=== PATIENT | male | born 1960 | race Caucasian/White ===

== ENCOUNTER 2025-09-07 19:02 | Inpatient (IN) | payer BC, SELFPAY ==
[2025-09-07] VITALS (13 sets, daily range): BP systolic 114–143; BP diastolic 82–115; PULSE 102–173; RESP 10–28; TEMP 36.4–37.1; O2SAT 92–96
--- NOTE | 2025-09-07 19:11 | EKG_ITS ---
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
--- NOTE | 2025-09-07 19:28 | EDNOTE_ITS ---
ED SOB =RME/HPI General Chief Complaint: Shortness of Breath/Dyspnea Stated Complaint: SOB, WEAKNESS, JOINT PAIN Time Seen by Provider: 09/07/25 19:26 Arrival date/time: 09/07/25 19:02 RME / HPI RME / HPI Narrative: Dr. Reid?s Main ED Evaluation: 64yo male presenting with progressively worsening shortness of breath over the last 1-2 weeks that is attributed to various allergenic stimulants. No fever, chills, or cough. No chest pain or palpitations. Patient notes having increased orthopnea and abdominal girth. No BLE edema. Cardiac Risk Factors: No DM, HTN, HLD, or tobacco use. Patient is morbidly obese and has a family history of heart disease. PSH includes chronic back pain, reports previous cervical fusion. Related Data Allergies Allergy/AdvReac Type Severity Reaction Status Date / Time eucalyptus Allergy Verified 09/07/25 19:08 SODIUM PENTHOL Allergy Uncoded 09/07/25 19:08 TOBACCO Allergy Uncoded 09/07/25 19:08 Review of Systems Review of Systems Systems Reviewed: All systems reviewed, normal except as documented ED Exam Narrative Physical exam: GENERAL APPEARANCE: alert and oriented x 4, well-developed, well-nourished, mildly tachypneic at rest VITALS: All vitals were reviewed and the pulse ox is 95% on room air, which is normal according to my interpretation. Notably tachycardic and hypertensive. HEENT: Normocephalic, atraumatic; pupils equal, round, reactive to light; EOMI; mucous membranes pink, moist; oropharynx clear NECK: Supple, no JVD LUNGS: CTABL; no wheezes, no rales, no rhonchi HEART: Tachycardic, irregularly irregular rhythm; normal S1, S2; no murmurs ABDOMEN: mildly distended; obese, soft, no tenderness EXTREMITIES: atraumatic; trace edema NEUROLOGIC: awake; alert and oriented x4; cranial nerves II-XII grossly intact; no focal sensory or motor deficits PSYCHIATRIC: appropriate mood and affect SKIN: warm, dry, normal color; no rashes Course Course Course Narrative: CXR is ordered for determining the etiology of shortness of breath. Quality Measures none Orders Category Date Time Status Blood glucose [Bedside Blood Glucose] NOW Care 09/07/25 19:11 Active Lubrication Supervisor STAT Care 09/07/25 19:33 Active Continuous Pulse Oximetry ONCE Care 09/07/25 19:33 Active EKG (ED ONLY) *Do not use* NOW Care 09/07/25 19:11 Completed Insert IV STAT Care 09/07/25 19:33 Active EKG (ED Only) Stat Exams 09/07/25 19:11 Draft XR chest 1V portable Stat Exams 09/07/25 19:33 Completed B-Type Natriuretic Peptide Stat Lab 09/07/25 19:38 Completed CBC Stat Lab 09/07/25 19:38 Completed Comprehensive Metabolic Panel Stat Lab 09/07/25 19:38 Completed Lipase Stat Lab 09/07/25 19:38 Completed Magnesium Stat Lab 09/07/25 19:38 Completed Partial Thromboplastin Time Stat Lab 09/07/25 19:38 Completed Prothrombin Time with INR Stat Lab 09/07/25 19:38 Completed Troponin I Stat Lab 09/07/25 19:38 Completed Apixaban [Eliquis] Med 09/07/25 20:51 Discontinued 5 mg PO X1 ONE Aspirin Chew Med 09/07/25 19:33 Discontinued 324 mg PO X1 ONE DILTIAZEM in NS 100 MG (DO NOT [DILTIAZEM in NS 100 MG] Med 09/07/25 20:42 Active 100 mg in 100 ml IV 5 mg/hr Diltiazem Inj [Cardizem Inj] Med 09/07/25 19:33 Discontinued 10 mg IV X1 ONE Diltiazem Inj [Cardizem Inj] Med 09/07/25 20:09 Discontinued 10 mg IV X1 ONE Diltiazem Inj [Cardizem Inj] Med 09/07/25 20:49 Discontinued 10 mg IV X1 ONE Furosemide Inj [Lasix Inj] Med 09/07/25 21:29 Once 20 mg IVP X1 ONE Morphine* Inj Med 09/07/25 19:34 Discontinued 4 mg IVP X1 ONE Ondansetron Inj [Zofran Inj] Med 09/07/25 19:33 Active 4 mg IVP Q1HR PRN Sodium Chloride 0.9% 1000 ml [Ns] 1,000 ml Med 09/07/25 19:33 Discontinued IV 999 mls/hr Oxygen Delivery NOW RT 09/07/25 19:33 Active Vital Signs Vital signs: Vital Signs Temperature 97.5 F 09/07/25 19:20 Pulse Rate 167 H 09/07/25 19:20 Respiratory Rate 26 H 09/07/25 19:20 Pulse Oximetry (%) 95 09/07/25 19:20 Oxygen Delivery Method Room Air 09/07/25 19:20 Shortness of Breath / Dyspnea MDM Narrative MDM Narrative:: Scribe Attestation: 09/07/25 - Tanya Garcia am scribing for and in the p resence of Dr. Reid. 64yo male presenting with progressively worsening shortness of breath over the last 1-2 weeks that is attributed to various allergenic stimulants. No fever, chills, or cough. Please see PE findings. Lab markers demonstrate WBC count 9.6, HnH 14/44, Plt count 264. Coagulation profile shows marginally elevated PTT 32.5. Chemistries show normal renal function, mildly elevated blood sugar of 138, elevated troponin 0.107, BNP 613. EKG shows aFib RVR without ischemic findings. Patient was immediately triaged to monitored bed, IV established, and received incremental doses of Cardizem IV for aFib RVR with gradual reduction of heart rate. Also placed on Cardizem infusion to ensure rate control and possible conversion. Troponin is elevated likely related to rate-related ischemia as opposed to acute DC. CXR shows cardiomegaly and mild pulmonary venous congestion, although no pleural effusions. Informal bedside US demonstrates markedly reduced EF with poor colapse of IVC with inspiration. Lasix given. Will contact hospitalist for consideration of admission, as patient will require further work-up. Will initiate anticoagulant therapy with Eliquis. Dx: new onset aFib RVR Patient data External records reviewed:: [facility] previous records (Per chart review, patient has no previous ED visits or admissions to this facility.) Clinical information provided by:: patient Social determinants that could affect healthcare access:: none Patient has the following chronic illnesses:: none How is presenting disease/condition affected by chronic disease/condition?: no chronic disease Evaluation data The following diagnostics were reviewed and interpreted by me:: lab results, radiology exam(s) and EKG tracing(s) Lab and/or radiology exams considered but not ordered:: none Interpretation Summary: CXR shows cardiomegaly, mild pulmonary venous congestion, no pleural effusions, according to my interpretation. EKG done at 1917, aFib RVR, rate of 171, no acute pathological ST segment changes, no ectopy, left axis deviation, according to my interpretation. Medications / Prescriptions Medications or Prescriptions considered but not ordered:: none Medication administrations:: Medication Administration History Furosemide (Furosemide Inj 10 Mg/Ml 4ml Vial) 20 mg IVP X1 ONE Stop: 09/07/25 21:30 Diltiazem/Sodium Chloride (Diltiazem In Ns 100 Mg) 100 mg in 100 mls @ 5 mls/hr IV .Q20H KATINA; Protocol Stop: 10/07/25 20:41 Last Titration: 09/07/25 21:10 Dose: 7.5 mg/hr, 7.5 mls/hr Documented By: Admin: 09/07/25 20:55 Dose: 5 mg/hr, 5 mls/hr Documented By: URMILA Ondansetron HCl (Ondansetron Inj 2 Mg/Ml Inj 2 Ml) 4 mg IVP Q1HR PRN PRN Reason: PERSISTENT NAUSEA OR VOMITING Last Admin: 09/07/25 19:54 Dose: 4 mg Documented By: URMILA Discontinued Medications Apixaban (Apixaban 2.5 Mg Tablet) 5 mg PO X1 ONE Stop: 09/07/25 20:52 Last Admin: 09/07/25 21:21 Dose: 5 mg Documented By: URMILA Aspirin (Aspirin 81 Mg Chew) 324 mg PO X1 ONE Stop: 09/07/25 19:34 Last Admin: 09/07/25 19:52 Dose: 324 mg Documented By: URMILA Diltiazem HCl (Diltiazem Inj 5 Mg/Ml Vial 5 Ml) 10 mg IV X1 ONE Stop: 09/07/25 19:34 Last Admin: 09/07/25 19:49 Dose: 10 mg Documented By: AC Diltiazem HCl (Diltiazem Inj 5 Mg/Ml Vial 5 Ml) 10 mg IV X1 ONE Stop: 09/07/25 20:10 Last Admin: 09/07/25 20:20 Dose: 10 mg Documented By: DT Diltiazem HCl (Diltiazem Inj 5 Mg/Ml Vial 5 Ml) 10 mg IV X1 ONE Stop: 09/07/25 20:50 Last Admin: 09/07/25 21:19 Dose: 10 mg Documented By: URMILA Sodium Chloride (Ns) 1,000 mls @ 999 mls/hr IV .Q1H1M ONE Stop: 09/07/25 20:33 Last Infusion: 09/07/25 20:52 Dose: Infused Documented By: Admin: 09/07/25 19:51 Dose: 999 mls/hr Documented By: URMILA Morphine Sulfate (Morphine Sulf Inj 4 Mg/Ml Vial) 4 mg IVP X1 ONE Stop: 09/07/25 19:35 Last Admin: 09/07/25 19:50 Dose: 4 mg Documented By: URMILA see above Consultations Consultation(s) initiated? (list below): Yes Consultation #1 (Physician, Specialty, Details): Discussed case with the resident physician, attending Dr. Haque from Hospitalist service regarding admission. Discussed patients ED course, exam findings, labs, and radiology results. The Hospitalist agrees to accept the patient for admission. Time: 21:30 Diagnosis Shortness of Breath Differential Diagnosis: congestive heart failure, community acquired pneumonia and other (arrhythmia, ACS, viral illness) Most likely diagnosis given after review of the tests above:: see clinical impression below Admission Indicated Admission indicated?: indicated Admission Request Was there a request for admission?: Yes Admission Attestation Admission request attestation: Discussed case with [] from Hospitalist service regarding admission. Discussed patients ED course, exam findings, labs, and radiology results. The Hospitalist [agrees,declines] to accept the patient for admission. Disposition Plan Disposition Plan: Admit Critical Care Time Critical Care Time Critical Care Time: Yes Total Critical Care Time (min.): 40 Attestation: The high probability of sudden, clinically significant deterioration in the patient?s condition required the highest level of my preparedness to intervene urgently. The services I provided to this patient were to treat and/or prevent clinically significant deterioration. Services included the following: chart data review, reviewing nursing notes and/or old charts, documentation time, sap security consultant collaboration regarding findings and treatment options, medication orders and management, direct patient care, vital sign assessments and ordering, interpreting and reviewing diagnostic studies and lab tests. Aggregate critical care time includes only time during which I was engaged in work directly related to the patient?s care, as described above, whether at bedside or elsewhere in the Emergency Department. It did not include time spent performing other reported procedures or the services of residents, students, nurses or physician assistants. Discharge Plan Plan Patient Disposition: Admit Acute Care w/in Hospital Prescriptions/Referrals Referrals: No Primary/Family,Physician [Primary Care Provider] - In 1 week Problem List Clinical Impression: New onset a-fib Patient/Caregiver Discharge Instructions Print Language: Latvian Stand Alone Forms: Tatyana Award Info., Patient Portal Info Letter
--- NOTE | 2025-09-07 19:33 | XR_ITS ---
EXAMINATION: AP chest single view TECHNIQUE: AP portable upright chest single view Date and time: September 07, 2025, 1999 hours INDICATIONS: Chest pain today. FINDINGS: Mild heart failure Mild to moderate enlargement cardiac contour Prominent vascular congestion with early perihilar basilar edema Moderate osteopenia IMPRESSION: Mild heart failure
[2025-09-07] MEDS: DILTIAZEM INJ 5 MG/ML VIAL 5 ML 10 MG IV ×3 (19:49→21:19)
[2025-09-07] MEDS: MORPHINE SULF INJ 4 MG/ML VIAL IVP (19:50)
[2025-09-07] MEDS: SODIUM CHLORIDE 0.9% 1000 ML 1,000 ML 999 ML IV (19:51)
[2025-09-07] MEDS: ASPIRIN 81 MG CHEW 324 MG PO (19:52)
[2025-09-07] MEDS: ONDANSETRON INJ 2 MG/ML INJ 2 ML 4 MG IVP (19:54)
[2025-09-07 20:06] LABS: Basophils # (Auto) 0.1 Thou/mm3 (0.0-0.2); Basophils % (Auto) 1 % (0-2.5); Eosinophils # (Auto) 0.0 Thou/mm3 (0.0-0.5); Eosinophils % (Auto) 0 % (0-10); Hematocrit 44.8 % (41.0-53.0); Hemoglobin 14.7 g/dL (13.5-16.0); Immature Granulocytes Auto 0.05 Thou/mm3 (0.00-0.00); Lymphocytes # (Auto) 1.2 Thou/mm3 (1.0-4.8); Lymphocytes % (Auto) 13 % (10-50); Mean Corpuscular HGB Conc 32.8 g/dl (31.0-37.0); Mean Corpuscular Hemoglobin 28.5 pg (25.0-35.0); Mean Corpuscular Volume 87 fL (80-100); Monocytes # (Auto) 0.9 Thou/mm3 (0.0-0.8); Monocytes % (Auto) 9 % (0-12); Neutrophils # (Auto) 7.3 Thou/mm3 (1.8-7.7); Neutrophils % (Auto) 77 % (37-80); Nucleated Red Blood Cell # 0.00 Thou/mm3 (0.00-0.00); Nucleated Red Blood Cell % 0 /100 WBC (0); Platelet Count 264 Thou/mm3 (140-440); RDW Standard Deviation 48.0 fL (35.1-43.9); Red Blood Count 5.16 Miln/mm3 (4.50-5.90); White Blood Count 9.6 Thou/mm3 (3.8-10.6)
[2025-09-07 20:16] LABS: INR 1.3 (0.9-1.3); Partial Thromboplastin Time 27.6 Seconds (22.0-36.0); Prothrombin Time 13.5 Seconds (9.0-12.2)
[2025-09-07 20:20] LABS: Alanine Aminotransferase 109 U/L (10-49); Albumin, Serum 4.5 gm/dL (3.4-4.8); Albumin/Globulin Ratio 1.7 (1.2-2.2); Alkaline Phosphatase 85 U/L (46-116); Anion Gap 12 (7-16); Aspartate Amino Transferase 83 U/L (0-34); BUN/Creatinine Ratio 12 Ratio (12-20); Bilirubin,Total 1.5 mg/dL (0.3-1.2); Blood Urea Nitrogen 16 mg/dL (9-23); Calcium 9.9 mg/dL (8.3-10.6); Calcium (Corrected) 9.9 mg/dL (8.5-10.1); Carbon Dioxide 23.0 mMol/L (20.0-31.0); Chloride 107 mMol/L (98-107); Creatinine (Component) 1.3 mg/dL (0.6-1.3); Globulin 2.6 gm/dL (2.3-3.5); Glucose 138 mg/dL (74-106); Lipase 37 U/L (12-53); Magnesium 2.0 mg/dL (1.6-2.6); Osmolality,Calculated 286 (275-295); Potassium 4.4 mMol/L (3.4-5.1); Sodium 142 mMol/L (136-145); Total Protein 7.1 gm/dL (5.7-8.2); eGFR > 60 See Note
[2025-09-07 20:27] LABS: Troponin I 0.107 ng/mL (0.0-0.045)
[2025-09-07 20:28] LABS: B-Type Natriuretic Peptide 613 pg/mL (0-100)
[2025-09-07] MEDS: APIXABAN 2.5 MG TABLET 5 MG PO (21:21)
[2025-09-07] MEDS: FUROSEMIDE INJ 10 MG/ML 4ML VIAL 20 MG IVP (21:40)
--- NOTE | 2025-09-07 21:57 | XR_ITS ---
Examination: Abdomen sonogram, Limited Date and time of exam: September 07, 2025, 10:00 p.m. INDICATIONS: Elevated liver function test on laboratory examination today Technique: Real-time lopez scale transabdominal sonographic images of the upper abdomen obtained. Findings: Negative for gallstones Gallbladder wall is thickened 0.8 cm Common bile duct 0.3 cm Pancreatic head 2.7 cm Liver 14 cm no liver lesions, fatty infiltration, partial visualization right pleural fluid Normal hepatopetal portal venous flow Patent IVC IMPRESSION: Thickened gallbladder wall up to 8 mm, consider HIDA scan or MRCP follow-up to exclude cholecystitis Cirrhosis versus primary hepatocellular disease
--- NOTE | 2025-09-07 22:56 | ECHO_ITS ---
Patient Info Name: Rocael Doe Age: 64 years : 1960 Gender: Male Ht: 183 cm Wt: 130 kg BSA: 2.62 m2 BP: 116 / 87 mmHg HR: 98 bpm Heart Rhythm: Atrial Fibrillation Exam Date: 09/08/2025 8:26 AM Admit Date: 09/07/2025 Site: [facility] Room Number: [id number] Patient Status: I Exam Type: CA echo doppler complete General Assistant: Susannah Rayo Ordering Physician: Og Moore Study Info Indications New onset A fib in setting of CHF - Primary Location: [id number] Left Ventricular Outflow Tract Name Value Normal LVOT 2D LVOT Diameter 2.0 cm LVOT Doppler LVOT Peak Velocity 101 cm/s LVOT Mean Gradient 2 mmHg LVOT VTI 17 cm LVOT VTI/AV VTI Ratio 0.6 LVOT Stroke Volume 53 ml Pulmonic Valve Name Value Normal PV Doppler PV Peak Velocity 100 cm/s Mitral Valve Name Value Normal MV Doppler MV Decel [place] 866 cm/s2 MV PHT 39 ms MV Area (PHT) 5.7 cm2 4.0-5.0 MV Diastolic Function MV E Peak Velocity 116 cm/s Tricuspid Valve Name Value Normal TV Regurgitation Doppler TR Peak Velocity 236 cm/s Estimated PAP/RSVP RA Pressure 15 mmHg <=5 PA Systolic Pressure 37 mmHg <36 RV Systolic Pressure 37 mmHg <36 Aortic Valve Name Value Normal AV 2D/MM AV Cusp Sep (MM) 0.9 cm AV Doppler AV Peak Velocity 181 cm/s AV Mean Gradient 8 mmHg AV VTI 30 cm AV Area (Cont Eq VTI) 1.8 cm2 >=3.0 AV Area (Cont Eq Gregg) 1.8 cm2 AV DI (Gregg) 0.56 AV Regurgitation 2D LVOT Area 3.1 cm2 Ventricles Name Value Normal LV Dimensions 2D/MM IVS Diastolic Thickness (2D) 1.0 cm 0.6-1.0 LVID Diastole (2D) 5.7 cm 4.2-5.8 LVIW Diastolic Thickness (2D) 1.0 cm 0.6-1.0 LVID Systole (2D) 4.8 cm 2.5-4.0 LVOT Diameter 2.0 cm LV Mass (2D Cubed) 226.35 g 88.00-224.00 LV Mass Index (2D Cubed) 86 g/m2 49-115 Relative Wall Thickness (2D) 0.35 <=0.42 IVS/LVIW Diastolic Thickness (2D) 1.00 0.00-1.50 LV Fractional Shortening/Ejection Fraction 2D/MM LV Fractional Shortening (2D) 16 % 25-43 LV EF (2D Teichholz) 33 % LV Diastolic Volume (4C MOD) 193 ml LV EF (4C MOD) 21 % LV Diastolic Volume (2C MOD) 205 ml LV EF (2C MOD) 41 % LV Diastolic Volume (BP MOD) 205 ml 62-150 LV Diastolic Volume Index (BP MOD) 78 ml/m2 34-74 LV Systolic Volume (BP MOD) 138 ml 21-61 LV Systolic Volume Index (BP MOD) 53 ml/m2 11-31 LV EF (BP MOD) 33 % 52-72 LV Diastolic Length (4C) 9.0 cm LV Systolic Length (4C) 8.4 cm LV Stroke Volume (4C MOD) 41 ml Atria Name Value Normal LA Dimensions LA Volume (4C A-L) 129 ml Left Ventricle Left ventricular chamber dimension is mildly enlarged. Left ventricular systolic function is severely reduced with visually estimated ejection fraction of 20-25%. There is normal geometry noted in the left ventricle. Left ventricular segmental wall motion is normal. There is grade II diastolic dysfunction in the left ventricle. Right Ventricle Right ventricular chamber dimension is normal. Right ventricular systolic function is normal. Left Atrium Left atrial chamber dimension is severely enlarged. Right Atrium Right atrial chamber dimension is moderately enlarged. Aortic Valve The aortic valve is trileaflet. There is moderate aortic valve sclerosis. There is no aortic valve stenosis with a peak velocity of 181 cm/s, mean gradient of 8 mmHg, and aortic valve area of 1.8 cm2. There is mild aortic valve regurgitation. Pulmonic Valve The pulmonic valve is normal. There is no pulmonic valve stenosis. There is mild pulmonic regurgitation. Mitral Valve The mitral valve has thickened leaflets. There is no mitral valve stenosis. There is mild to moderate mitral valve regurgitation. Tricuspid Valve The tricuspid valve leaflets are normal. There is no tricuspid valve stenosis. There is mild to moderate tricuspid valve regurgitation. Pulmonary hypertension, estimated pulmonary arterial systolic pressure is 37 mmHg and systemic blood pressure of 116 mmHg in systole. Pericardium/Pleural The pericardium appears normal. There is trivial pericardial effusion with no tamponade. No pleural effusion visualized. Inferior Vena Cava Dilated inferior vena cava with <50% collapse upon inspiration consistent with normal right atrial pressure, 15 mmHg. Aorta The aortic measurements are indexed to age and body surface area. The aortic root at the sinus of Valsalva is not well visualized. The prox ascending aorta is not well visualized. Summary 1. Left ventricle size is mildly enlarged and systolic function is severely reduced. Estimated ejection fraction is 20-25%. There is grade II diastolic dysfunction. Cannot rule out Small LV thrombus. Will need echo contrast study which is not available here. 2. Right ventricle chamber size is normal and systolic function is normal. Estimated RVSP is 37 mmHg. mildly elevated RVSP. 3. There is moderate aortic valve sclerosis with no stenosis and mild regurgitation. 4. There is mild to moderate mitral and tricuspid valve regurgitation. 5. The left atrium is severely enlarged. The right atrium is moderately enlarged. 6. Dilated IVC with estimated RA pressure 15 mmHg. 7. There is trivial pericardial effusion with no tamponade. Report Signatures Finalized by Marcus Nathan on 09/08/2025 11:22 AM
--- NOTE | 2025-09-07 23:17 | ESHP_ITS ---
<Statement entered by Yuliya Taylor MD - 09/07/25 23:51> Note reviewed, I agree with most of its contents and agree with the patient's care as documented by Dr. Moore. Rocael Doe is 64 male with no significant past medical history presenting to ED with chief complaint of worsening shortness of breath since past 1-2 weeks. He endorses orthopnea and dyspnea walking short distances. He reports needing to sleep with multiple pillows to relieve his symptoms. He denies any chest pain, palpitations, abdominal pain, headache, recent illness. Patient has not seen PCP recently and does not take any regular medications. He denies any tobacco use or excessive alcohol consumption. In ED, patient was found to be in atrial fibrillation with RVR rate around 170. He was started on diltiazem drip titrated up to max of 15 mg/hour. He is currently on 5L NC saturating at 96%, BP 140/96, troponins 0.107, bR 1.5, elevated LFTs. He remains hemodynamically stable and no actue distress. +2 pitting edema in LE, mild crackles bilaterally. Patient to be admitted for management of AHRF 2/2 CHF exacerbation and new onset Afib RVR. Started on Eliquis 5BID with rate control with dilt. Started IV Lasix 40BID, strict INOs, fluid restriction, cardiology consulted, trend trops, TSH pending, and echo pending. The patient's management plan was discussed with my attending physician Dr. Haque. Yuliya Taylor, PGY-2 Documentation for date of: 09/07/25 HPI History of Present Illness History of present illness: 64yo obese male w/ pmhx of chronic back pain s/p cervical fusion (2006) presents to ED with progressively worsening shortness of breath over the last 1-2 weeks. Admitted for AHRF with new onset afib w/ RVR. ED Course Summary Vitals: BP 137/115 HR 167 RR 26 T 97.5F O2sat 95% NC 2L Labs: CBC wnl Coag 13.5 (H) INR 1.3 (N) APTT 27.6 (N), glucose 138 T Bili 1.5(H) AST 83 ALT 109 Troponin 0.107 BNP 613 Imaging: EKF afib with RVR, CXR mild heart failure, Liver US Thickened gallbladder wall up to 8 mm, Cirrhosis versus primary hepatocellular disease Treatment: lasix 20mg IVP, eliquis 5mg PO, Diltiazem 10mg IV x3, Dilt drip, zofran 4mg, aspirin 324mg, NS 1L, morphine sulfate 4mg IVP Consults and why: [facility] (Dr. Nathan) for new onset afib w/ RVR Upon initial examination patient confirms the narrative written by the ED. He initially thought his SOB was attributed to various allergenic stimulants. Patient notes having increased orthopnea and abdominal girth. Before the last two weeks he has not had any trouble sleeping, he wakes up feeling well rested without headaches; however he does snore occasionally. Of note patient has lost 100lbs this last year going from 365lbs --> 265lbs but now in the last two weeks has increased to 280lbs. As of the last two weeks he has been hyperventilating, his SOB does not improve with rest and has been impacting his sleep, making him orthopnic. Denies BLE edema. He denies any fever, chills, or cough. He was asked multiple times about chest pain or palpitations of which he denied repeatedly. He did not have any pain with probe during his abdominal US. He was also notably not orthopnic while laying horizontal during abd US. He has not been to the doctor since 2011 so he is unsure if he has chronic medical illnesses such as diabetes, hypertension, CINDY. He reports feeling well until recently (2 weeks). He has chronic back pain and a history of cervical fusion; however the back pain prevents him from walking for over a mile or doing strenuous exercise. He has not had any visual changes, positional headaches, or ringing in his ears that could indicate severe forms of hypertension. 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 Exam Vital Signs Temp Pulse Resp BP Pulse Ox O2 Del Method O2 Flow Rate 98.6 F 102 H 19 125/82 96 Nasal Cannula 5 09/07/25 23:15 09/07/25 23:15 09/07/25 23:15 09/07/25 23:15 09/07/25 23:15 09/07/25 23:15 09/07/25 23:15 FiO2 4 09/07/25 20:59 Narrative Exam GENERAL APPEARANCE: AOx4. NAD, activity normal for age, well developed/ well nourished, no cyanosis, pallor, or diaphoresis. Laying on back, no orhopnea at the moment. HEENT: Normocephalic atraumatic, no facial trauma, neck is supple. Lids/conjunctiva normal. Mucous membranes moist, nares normal, lips/teeth normal uvula midline without oral pharyngeal erythema, exudate or swelling TMs normal bilaterally. No lymphangitis/lymphedema. CARDIAC: Irregular rhythm RESPIRATORY: respiratory effort normal, speaks in full sentences, on 4L NC. Crackles aucultated in R lung quadrants and bronchial breath sounds in L lung. No wheezes heard. ABDOMINAL: NBS. Soft, ND/NT. No evidence of fluid wave. No pulsatile masses on exam, rebound tenderness, Skelton sign or pain over Mcburney's point. MUSCLES/EXTREMITIES: No abnormal range of motion. +2 Pedal edema DERM: Warm, pink and dry. No rashes, dermatoses, petechiae or lesions. No bronzing of the shins NEUROLOGICAL: Speech is clear and appropriate. Normal level of consciousness. 5/5 strength in all extremities. PSYCH: Normal mood and affect. Judgement/competence is appropriate Results: Labs 09/08/25 02:20 09/08/25 02:20 Labs: Short CBC 09/07/25 Range/Units 19:38 WBC 9.6 (3.8-10.6) Thou/mm3 Hgb 14.7 (13.5-16.0) g/dL Hct 44.8 (41.0-53.0) % Plt Count 264 (140-440) Thou/mm3 BMP 09/07/25 19:38 Sodium 142 Potassium 4.4 Chloride 107 Carbon Dioxide 23.0 BUN 16 Creatinine 1.3 Glucose 138 H Calcium 9.9 Cardiac Enzymes 09/07/25 Range/Units 19:38 Troponin I 0.107 H* (0.0-0.045) ng/mL Liver Function 09/07/25 Range/Units 19:38 Total Bilirubin 1.5 H (0.3-1.2) mg/dL AST 83 H (0-34) U/L ALT 109 H (10-49) U/L Alkaline Phosphatase 85 (46-116) U/L Albumin 4.5 (3.4-4.8) gm/dL Quality Measures Quality Measures VTE prophylaxis Medications Home Medications and Allergies Allergies Allergy/AdvReac Type Severity Reaction Status Date / Time eucalyptus Allergy Verified 09/07/25 19:08 SODIUM PENTHOL Allergy Uncoded 09/07/25 19:08 TOBACCO Allergy Uncoded 09/07/25 19:08 Visit Medications Acetaminophen (Acetaminophen 325 Mg Tablet) 650 mg PO Q6H PRN PRN Reason: Fever >100.4 or pain 1-3 Stop: 10/07/25 22:44 Hydrocodone Bitart/Acetaminophen (Hydrocodone/Apap 5/325 Tablet) 1 tab PO Q4HR PRN PRN Reason: PAIN SCALE 4-6 (Moderate Stop: 09/12/25 22:44 Apixaban (Apixaban 2.5 Mg Tablet) 5 mg PO BID KATINA Stop: 10/08/25 08:59 Famotidine (Famotidine Inj 10 Mg/Ml Vial 2 Ml) 20 mg IVP Q12HR KATINA Stop: 10/08/25 08:59 Furosemide (Furosemide Inj 10 Mg/Ml 4ml Vial) 40 mg IVP BID KATINA Stop: 10/08/25 08:59 Diltiazem/Sodium Chloride (Diltiazem In Ns 100 Mg) 100 mg in 100 mls @ 5 mls/hr IV .Q20H KATINA; Protocol Stop: 10/07/25 20:41 Last Titration: 09/07/25 21:55 Dose: 15 mg/hr, 15 mls/hr Ondansetron HCl (Ondansetron Inj 2 Mg/Ml Inj 2 Ml) 4 mg IVP Q1HR PRN PRN Reason: PERSISTENT NAUSEA OR VOMITING Last Admin: 09/07/25 19:54 Dose: 4 mg Discontinued Medications Apixaban (Apixaban 2.5 Mg Tablet) 5 mg PO X1 ONE Stop: 09/07/25 20:52 Last Admin: 09/07/25 21:21 Dose: 5 mg Aspirin (Aspirin 81 Mg Chew) 324 mg PO X1 ONE Stop: 09/07/25 19:34 Last Admin: 09/07/25 19:52 Dose: 324 mg Diltiazem HCl (Diltiazem Inj 5 Mg/Ml Vial 5 Ml) 10 mg IV X1 ONE Stop: 09/07/25 19:34 Last Admin: 09/07/25 19:49 Dose: 10 mg Diltiazem HCl (Diltiazem Inj 5 Mg/Ml Vial 5 Ml) 10 mg IV X1 ONE Stop: 09/07/25 20:10 Last Admin: 09/07/25 20:20 Dose: 10 mg Diltiazem HCl (Diltiazem Inj 5 Mg/Ml Vial 5 Ml) 10 mg IV X1 ONE Stop: 09/07/25 20:50 Last Admin: 09/07/25 21:19 Dose: 10 mg Furosemide (Furosemide Inj 10 Mg/Ml 4ml Vial) 20 mg IVP X1 ONE Stop: 09/07/25 21:30 Last Admin: 09/07/25 21:40 Dose: 20 mg Sodium Chloride (Ns) 1,000 mls @ 999 mls/hr IV .Q1H1M ONE Stop: 09/07/25 20:33 Last Infusion: 09/07/25 20:52 Dose: Infused Morphine Sulfate (Morphine Sulf Inj 4 Mg/Ml Vial) 4 mg IVP X1 ONE Stop: 09/07/25 19:35 Last Admin: 09/07/25 19:50 Dose: 4 mg Assessment & Plan Plan 64yo obese male w/ pmhx of chronic back pain s/p cervical fusion (2006) presents to ED with progressively worsening shortness of breath over the last 1-2 weeks. Admitted for AHRF with new onset afib w/ RVR. Initial weight 130.266kg #AHRF #New onset A fib with RVR #New onset CHF #NSTEMI type II DDx: HTN, CINDY, OHS Most likely HTN that patient has not been managing, very poor doctor follow up after 2011, OHS to be considered, however patient has lost over 100lbs, and CINDY is less likely because he does not have headaches upon waking and generally feels well rested, neck circumference also appears to be under 40cm; however STOP BANG score of 3. Patient presented respiratory distress and SOB the last 2 weeks. In ED oxygen saturation went down to 92% corrected with NC. He has crackles in the lungs and +2 bilateral pretibial edema. EKG shows afib with RVR. CXR revealed mild heart failure. He was given 3x dilt 10mg Inj and started on dilt drip 5-15mg/h and lasix 20mg and 40mg IV in ED. His HR lowered to 102 and BP 125/82. His orthopnea has lessened and he has not had any chest pain nor noticed palpitations. Troponins: 0.107 -->0.0100, BNP 613. CHADSVASC: 1 (but may change pending A1C, only +1 for clinical suspicion of HTN history) HAS-BLED: 0 Wells score: 3 STOP BAN Plan: -Strict I/Os -Daily weights -Fluid restriction 1.5L -Head of bed elevation -FUP cocci:____ -FUP ECHO:____ -Trend troponins:___ -Repeat BMP:___ -FUP TSH:___ -FUP lipid panel:___ -Cards consulted, recs appreciated -Dilt drip 5-15mg/hr -Transition to Metoprolol xl and wean off dilt drip in AM -Eliquis 5mg PO BID -lasix 40mg BID IV #Transaminitis #Hyperbilirubinemia Patient reports minimal PO intake the last week due to SOB, elevated labs most likely due to hepatic congestion in setting of CHF. No abdominal TTP or murphys sign on physical exam, no jaundice, no scleral icterus, no mucousal darkening. T Bili 1.5(H) AST 83 ALT 109. Liver US thickened gallbladder wall up to 8 mm, cirrhosis versus primary hepatocellular disease Plan: -Per abd US: Consider HIDA scan or MRCP to exclude cholecystitis -FUP LFTs on AM labs, continue to trend #C/f diabetes No history of diabetes, family history of strokes and heart disease. Patient not seen by doctor, is morbidly obese, recently lost 100lbs over the course of a year. Patient has limited mobility due to back pain. Cannot walk more than a mile due to pain. Is still morbidy obese since losing the weight. Blood glucose on admission is 138mg/dl. Plan: -FUP A1C Health Maintenance: Code status: Full DVT prophylaxis: Eliquis 5mg BID GI prophylaxis: Famotidine Diet: Cardiac Kiran: Yes Lines: PIV Supplemental O2: NC and oxy mask prn Disposition: Tele admit for AHRF with nwe onset afib RVR i/s/o acute CHF exacerbation Patient seen and reviewed with attending Dr. Haque, and reviewed with Senior resident Dr. Yuliya Taylor. Note written by Og Moore MD PGY-1 Attending Provider Attestation/Addendum After examination of the patient and review of the clinical data I feel that this patient needs admission to the hospital for further treatment/evaluation. Plan of care discussed with patient and is in agreement. I Shawn Haque MD, attest that I was physically present for castle portions of evaluation, and examined patient, labs and imagings and plan of care were discussed with IM residents team, and I agree with the findings and plans documented above.
[2025-09-08] VITALS (16 sets, daily range): BP systolic 96–124; BP diastolic 73–92; PULSE 89–132; RESP 17–23; TEMP 35.9–36.4; O2SAT 85–97
[2025-09-08] MEDS: FUROSEMIDE INJ 10 MG/ML VIAL 2 ML 40 MG IVP (01:15)
[2025-09-08 02:38] LABS: Basophils # (Auto) 0.1 Thou/mm3 (0.0-0.2); Basophils % (Auto) 1 % (0-2.5); Eosinophils # (Auto) 0.1 Thou/mm3 (0.0-0.5); Eosinophils % (Auto) 1 % (0-10); Hematocrit 40.8 % (41.0-53.0); Hemoglobin 13.3 g/dL (13.5-16.0); Immature Granulocytes Auto 0.04 Thou/mm3 (0.00-0.00); Lymphocytes # (Auto) 1.5 Thou/mm3 (1.0-4.8); Lymphocytes % (Auto) 18 % (10-50); Mean Corpuscular HGB Conc 32.6 g/dl (31.0-37.0); Mean Corpuscular Hemoglobin 28.9 pg (25.0-35.0); Mean Corpuscular Volume 89 fL (80-100); Monocytes # (Auto) 0.9 Thou/mm3 (0.0-0.8); Monocytes % (Auto) 11 % (0-12); Neutrophils # (Auto) 5.7 Thou/mm3 (1.8-7.7); Neutrophils % (Auto) 69 % (37-80); Nucleated Red Blood Cell # 0.00 Thou/mm3 (0.00-0.00); Nucleated Red Blood Cell % 0 /100 WBC (0); Platelet Count 213 Thou/mm3 (140-440); RDW Standard Deviation 49.5 fL (35.1-43.9); Red Blood Count 4.60 Miln/mm3 (4.50-5.90); White Blood Count 8.3 Thou/mm3 (3.8-10.6)
[2025-09-08 02:53] LABS: Glucose Estimated Average 114 mg/dL (80-131); Hemoglobin A1C 5.6 % Hgb (4.8-6.0)
[2025-09-08 03:06] LABS: Alanine Aminotransferase 99 U/L (10-49); Albumin, Serum 4.1 gm/dL (3.4-4.8); Albumin/Globulin Ratio 2.1 (1.2-2.2); Alkaline Phosphatase 84 U/L (46-116); Anion Gap 8 (7-16); Aspartate Amino Transferase 64 U/L (0-34); BUN/Creatinine Ratio 12 Ratio (12-20); Bilirubin,Total 0.8 mg/dL (0.3-1.2); Blood Urea Nitrogen 16 mg/dL (9-23); Calcium 8.9 mg/dL (8.3-10.6); Calcium (Corrected) 8.9 mg/dL (8.5-10.1); Carbon Dioxide 23.7 mMol/L (20.0-31.0); Cardiac Risk Estimate 3.3 RATIO (4.0-6.7); Chloride 111 mMol/L (98-107); Cholesterol 117 mg/dL (132-200); Creatinine (Component) 1.3 mg/dL (0.6-1.3); Globulin 2.0 gm/dL (2.3-3.5); Glucose 151 mg/dL (74-106); HDL Cholesterol 36 mg/dL (40-60); LDL Cholesterol,Calculated 65 mg/dL (0-130); Magnesium 1.9 mg/dL (1.6-2.6); Osmolality,Calculated 289 (275-295); Phosphorous 4.2 mg/dL (2.4-5.1); Potassium 4.3 mMol/L (3.4-5.1); Sodium 143 mMol/L (136-145); Thyroid Stimulating Hormone 1.14 uIU/mL (0.55-4.78); Total Protein 6.1 gm/dL (5.7-8.2); Triglycerides 81 mg/dL (30-150); eGFR > 60 See Note
[2025-09-08 03:09] LABS: Troponin I 0.100 ng/mL (0.0-0.045)
[2025-09-08 05:35] LABS: Collection Type, Urine Clean Catch; Squamous Epithelial Cell,Urine 0 /hpf (0-5)
[2025-09-08 05:52] LABS: Bilirubin,Urine Negative (Negative); Blood,Urine Negative (Negative); Clarity,Urine Clear (Clear/Hazy); Color,Urine Lt-Yellow (Lt Yel-Yel); Glucose, Urine Negative (Negative); Hyaline Casts,Urine 1 /hpf (0-1); Ketones,Urine Negative (Negative); Leukocyte Esterase,Urine Positive (Negative); Nitrite,Urine Negative (Negative); PH,Urine 5.0 (5.0-7.0); Protein,Urine Negative (Neg - Trace); RBC,Urine < 1 /hpf (0-3); Specific Gravity,Urine 1.010 (1.001-1.035); Urobilinogen,Urine Negative mg/dL (0.0-1.0); WBC,Urine < 1 /hpf (0-5)
--- NOTE | 2025-09-08 08:05 | ESPR_ITS ---
<Statement entered by Manas Valera MD - 09/08/25 16:36> Patient seen and examined at bedside. I discussed and supervised with the product development intern physician who took care of this patient. I personally saw and examined the patient. I agree with most of the assessment and plan. Plan of care discussed with attending Dr. Steward. Manas Valera MD PGY-2 Documentation for date of: 09/08/25 Subjective Subjective Interval history: 64-year-old male past medical history of right thumb amputation, DDD of spine, right C6 denervation, right shoulder labrum tear, right leg weakness, bilateral L5 pars defect, right leg weakness, present with progressively worsening shortness of breath x 2 weeks. Admitted for acute hypoxic respiratory failure secondary to new onset A-fib RVR and CHF exacerbation. Patient reported intermittent shortness of breath for the past 2 weeks. Reported normally sleeping with propped up with pillows on the left side due to the right arm weakness, recently felt more difficulty breathing at night. Denied inhaler use, oxygen at home. Reported family history of emphysema on that side but he himself does not smoke cigarettes, drink alcohol, any recreational drug use. Troponin peaked at 0.107, delta Trope downtrend to 0.1, BNP 613. Echo and CTA concern for left ventricle thrombus, treated with Eliquis for now. Possible liver cirrhosis, exacerbated by new onset CHF. Exam Vital Signs Temp Pulse Resp BP Pulse Ox O2 Del Method O2 Flow Rate 97.0 F 104 H 17 116/87 H 97 Nasal Cannula 5 09/08/25 04:00 09/08/25 04:00 09/08/25 04:00 09/08/25 04:00 09/08/25 04:00 09/08/25 04:00 09/08/25 04:00 FiO2 4 09/07/25 20:59 Narrative Exam GENERAL APPEARANCE: AOx4. NAD, activity normal for age, well developed/ well nourished, no cyanosis, pallor, or diaphoresis. Laying on back, no orhopnea at the moment. HEENT: Normocephalic atraumatic, no facial trauma, neck is supple. Lids/conjunctiva normal. Mucous membranes moist, nares normal, lips/teeth normal uvula midline without oral pharyngeal erythema, exudate or swelling TMs normal bilaterally. No lymphangitis/lymphedema. CARDIAC: Irregular rhythm RESPIRATORY: respiratory effort normal, speaks in full sentences, on 4L NC. Crackles auscultated in R lung quadrants and bronchial breath sounds in L lung. No wheezes heard. ABDOMINAL: NBS. Soft, ND/NT. No evidence of fluid wave. No pulsatile masses on exam, rebound tenderness, Skelton sign or pain over Mcburney's point. MUSCLES/EXTREMITIES: No abnormal range of motion. +2 Pedal edema DERM: Warm, pink and dry. No rashes, dermatoses, petechiae or lesions. No bronzing of the shins NEUROLOGICAL: Speech is clear and appropriate. Normal level of consciousness. 5/5 strength in all extremities. PSYCH: Normal mood and affect. Judgement/competence is appropriate Objective Labs 09/08/25 02:20 09/08/25 02:20 Labs: Laboratory Results - last 24 hr 09/07/25 09/08/25 09/08/25 19:38 02:20 02:30 WBC 9.6 8.3 RBC 5.16 4.60 Hgb 14.7 13.3 L Hct 44.8 40.8 L MCV 87 89 MCH 28.5 28.9 MCHC 32.8 32.6 RDW Std Deviation 48.0 H 49.5 H Plt Count 264 213 D Neut % (Auto) 77 69 Lymph % (Auto) 13 18 [place] % (Auto) 9 11 Eos % (Auto) 0 1 Baso % (Auto) 1 1 Neut # (Auto) 7.3 5.7 Lymph # (Auto) 1.2 1.5 [place] # (Auto) 0.9 H 0.9 H Eos # (Auto) 0.0 0.1 Baso # (Auto) 0.1 0.1 Immature Gran # (Auto) 0.05 H 0.04 H Absolute Nucleated RBC 0.00 0.00 Immature Gran % 1 H 1 H Nucleated RBC % 0 0 PT 13.5 H INR 1.3 APTT 27.6 Sodium 142 143 Potassium 4.4 4.3 Chloride 107 111 H Carbon Dioxide 23.0 23.7 Anion Gap 12 8 BUN 16 16 Creatinine 1.3 1.3 Estim Creat Clear Calc Not Performed. Not Performed. eGFR > 60 > 60 BUN/Creatinine Ratio 12 12 Glucose [address] Glu mg/dL 114 Hemoglobin A1c 5.6 Calculated Osmolality 286 289 Calcium 9.9 8.9 Corrected Calcium 9.9 8.9 Phosphorus 4.2 Magnesium 2.0 1.9 Total Bilirubin 1.5 H 0.8 D AST 83 H 64 H ALT 109 H 99 H Alkaline Phosphatase 85 84 Troponin I 0.107 H* 0.100 H* B-Natriuretic Peptide 613 H* Total Protein 7.1 6.1 Albumin 4.5 4.1 Globulin 2.6 2.0 L Albumin/Globulin Ratio 1.7 2.1 Triglycerides 81 Cholesterol 117 L LDL Cholesterol, Calc 65 HDL Cholesterol 36 L Cholesterol/HDL Ratio 3.3 L Lipase 37 TSH 1.14 Ur Collection Type Clean Catch Urine Color Lt-Yellow Urine Clarity Clear Urine pH 5.0 Ur Specific [place] 1.010 Urine Protein Negative Urine Glucose (UA) Negative Urine Ketones Negative Urine Blood Negative Urine Nitrite Negative Urine Bilirubin Negative Urine Urobilinogen (Auto) Negative Ur Leukocyte Esterase Positive Urine RBC < 1 Urine WBC < 1 Ur Squamous Epith Cells 0 Urine Bacteria None Hyaline Casts 1 Quality Measures Quality Measures VTE prophylaxis Assessment & Plan Assessment Current Active Medications: Generic Name Dose Route Start Last Admin Trade Name Freq PRN Reason Stop Dose Admin Acetaminophen 650 mg 09/07/25 22:45 Acetaminophen 325 Mg Tablet PO 10/07/25 22:44 Q6H PRN Fever >100.4 or pain 1-3 Hydrocodone Bitart/Acetaminophen 1 tab 09/07/25 22:45 Hydrocodone/Apap 5/325 Tablet PO 09/12/25 22:44 Q4HR PRN PAIN SCALE 4-6 (Moderate Apixaban 5 mg 09/08/25 09:00 Apixaban 2.5 Mg Tablet PO 10/08/25 08:59 BID KATINA Famotidine 20 mg 09/08/25 09:00 Famotidine Inj 10 Mg/Ml Vial 2 Ml IVP 10/08/25 08:59 Q12HR KATINA Furosemide 40 mg 09/08/25 09:00 Furosemide Inj 10 Mg/Ml 4ml Vial IVP 10/08/25 08:59 BID KATINA Diltiazem/Sodium Chloride 100 mg in 100 mls @ 5 mls/hr 09/07/25 20:42 09/08/25 02:51 Diltiazem In Ns 100 Mg IV 10/07/25 06:00 15 mg/hr .Q20H KATINA 15 mls/hr Protocol Administration 5 MG/HR Ondansetron HCl 4 mg 09/07/25 23:26 Ondansetron Inj 2 Mg/Ml Inj 2 Ml IVP 10/07/25 23:25 Q6HR PRN NAUSEA OR VOMITING Protocol Plan 64yo obese male w/ pmhx of chronic back pain s/p cervical fusion (2006) presents to ED with progressively worsening shortness of breath over the last 1-2 weeks. Admitted for AHRF with new onset afib w/ RVR. Initial weight 130.266kg #AHRF #New onset A fib with RVR #New onset CHF #NSTEMI type II #LV thrombus DDx: HTN, CINDY, OHS Most likely HTN that patient has not been managing, very poor doctor follow up after 2011, OHS to be considered, however patient has lost over 100lbs, and CINDY is less likely because he does not have headaches upon waking and generally feels well rested, neck circumference also appears to be under 40cm; however STOP BANG score of 3. Patient presented respiratory distress and SOB the last 2 weeks. In ED oxygen saturation went down to 92% corrected with NC. He has crackles in the lungs and +2 bilateral pretibial edema. EKG shows afib with RVR. CXR revealed mild heart failure. He was given 3x dilt 10mg Inj and started on dilt drip 5-15mg/h and lasix 20mg and 40mg IV in ED. His HR lowered to 102 and BP 125/82. His orthopnea has lessened and he has not had any chest pain nor noticed palpitations. Troponins: 0.107 -->0.0100, BNP 613. Plan: -Strict I/Os -Fluid restriction 1.5L -Head of bed elevation -Cards, Dr. Nathan, consulted, recs appreciated: continue IV diuretics, metoprolol 50 XL daily, Eliquis 5 mg twice daily, GDMT for long-term HF management -Discontinue Dilt drip 5-15mg/hr -Lasix 40mg BID IV #Transaminitis #Hyperbilirubinemia #Liver cirrhosis Patient reports minimal PO intake the last week due to SOB, elevated labs most likely due to hepatic congestion in setting of CHF. No abdominal TTP or murphys sign on physical exam, no jaundice, no scleral icterus, no mucousal darkening. T Bili 1.5(H) AST 83 ALT 109. Liver US showed irregular liver contour, thickened gallbladder wall up to 8 mm, cirrhosis versus primary hepatocellular disease. Transaminitis likely secondary to new onset CHF Plan: -Optimize HF management as above -Follow up outpatient for possible liver cirrhosis workup #Pre-diabetes No history of diabetes, family history of strokes and heart disease. Patient not seen by doctor, is morbidly obese, recently lost 100lbs over the course of a year. Patient has limited mobility due to back pain. Cannot walk more than a mile due to pain. Is still morbidy obese since losing the weight. Blood glucose on admission is 138mg/dl. A1c 5.6% Plan: -Lifestyle modification -Cardiac and low carb diet Health Maintenance: Code status: Full DVT prophylaxis: Eliquis 5mg BID GI prophylaxis: Famotidine Diet: Cardiac Kiran: Yes Lines: PIV Supplemental O2: NC and oxy mask prn Disposition: Tele Assessment and plan discussed with my attending physician Dr. Steward and Dr. Valera (PGY-2). Dr. Shukla (PGY-1) ? residential leasing agent Attending Provider Attestation/Addendum I have seen and examined the patient. I was physically present for the castle portions of the services provided including history, physical exam, diagnosis, treatment plans and orders. I agree with assessment and plan of care as documented by residents. Patient seen and examined at bedside this morning. Appears comfortable and states that he is feeling better compared to presentation. Saturating well on 4 L nasal cannula. Continues to be mildly tachycardic. Lab results show creatinine of 1.3, iron 15, ferritin 65, improvement in bilirubin and AST/ALT. Troponin peaked at 0.107. Patient also had elevated BNP on presentation. Continues to have bilateral pedal edema, 2+. Patient has not seen a physician for 40 years. Echocardiography done yesterday showed ejection fraction of 20 to 25%, grade 2 diastolic dysfunction, right ventricular systolic pressure 37 mmHg, severe left atrial enlargement. There is also concern for small left ventricular thrombus on echocardiography.. We will continue with IV diuresis, fluid restriction, strict ins and outs. Patient has been started on Eliquis for both A-fib with RVR and bolus. Diltiazem drip discontinued, patient started on metoprolol. CTA chest was done, negative for PE. Even though this this note was carefully revised there may still be minor errors in iron cutter due to voice recognition software. Sheryl Steward MD
[2025-09-08] MEDS: FUROSEMIDE INJ 10 MG/ML 4ML VIAL 40 MG IVP ×2 (08:14→20:51)
[2025-09-08] MEDS: FAMOTIDINE INJ 10 MG/ML VIAL 2 ML 20 MG IVP ×2 (08:15→20:52)
[2025-09-08] MEDS: APIXABAN 2.5 MG TABLET 5 MG PO ×2 (08:15→20:52)
--- NOTE | 2025-09-08 08:19 | ESCONSULT_ITS ---
HPI Data of Consult Requesting Physician: Shawn Haque MD Admitting Provider: Shawn Haque MD Attending Provider: Shawn Haque MD Primary Care Provider: Physician No Primary/Family Consult Narrative History of present illness: A 64-year-old male with no significant past medical history presented to the ED with worsening shortness of breath over the past two weeks, along with orthopnea, dyspnea on exertion, and weight gain. He also reported bilateral lower extremity edema. The patient has a sedentary lifestyle due to a history of back injury and surgeries. He denied chest pain, nausea, or vomiting. In the ED, the patient was hypoxic, with labs showing mildly elevated troponin and elevated BNP. He developed atrial fibrillation with a rapid ventricular response of 170. The patient was started on a diltiazem drip to control the heart rate and was admitted for acute hypoxic respiratory failure due to new- onset CHF and A-fib with RVR. Diuretics and anticoagulation were initiated, and cardiology was consulted for further management. Past medical history none Past surgical history back surgeries in 2006 Allergies tobacco Social living at home with son, denies smoking, alcohol or any other drug use. 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 Obese HEENT: Head AT/ NC. Mucous membranes moist. PERRL. NECK: Supple, no lymphadenopathy, no carotid bruits. CARDIOVASCULAR: Irregular RR. Normal S1/S2, No m/r/g. 2+ pitting edema of BL LEs, more on R side RESPIRATORY: No wheezing, rhonchi, crackles. GASTROINTESTINAL: Abdomen soft, non tender no palpable masses. Bowel sounds present in all 4 quadrants. NEUROLOGICAL: CN II-XII grossly intact. No focal deficits. Sensation intact, symmetric. PSYCHIATRIC: Awake and alert, not agitated, normal mood and affect. INTEGUMENTARY: No obvious rashes, no jaundice, normal turgor. Results Labs 09/08/25 02:20 09/08/25 02:20 Labs: Short CBC 09/07/25 09/08/25 Range/Units 19:38 02:20 WBC 9.6 8.3 (3.8-10.6) Thou/mm3 Hgb 14.7 13.3 L (13.5-16.0) g/dL Hct 44.8 40.8 L (41.0-53.0) % Plt Count 264 213 D (140-440) Thou/mm3 BMP 09/07/25 09/08/25 19:38 02:20 Sodium 142 143 Potassium 4.4 4.3 Chloride 107 111 H Carbon Dioxide 23.0 23.7 BUN 16 16 Creatinine 1.3 1.3 Glucose 138 H 151 H Calcium 9.9 8.9 Cardiac Enzymes 09/07/25 09/08/25 Range/Units 19:38 02:20 Troponin I 0.107 H* 0.100 H* (0.0-0.045) ng/mL Liver Function 09/07/25 09/08/25 Range/Units 19:38 02:20 Total Bilirubin 1.5 H 0.8 D (0.3-1.2) mg/dL AST 83 H 64 H (0-34) U/L ALT 109 H 99 H (10-49) U/L Alkaline Phosphatase 85 84 (46-116) U/L Albumin 4.5 4.1 (3.4-4.8) gm/dL Urine 09/08/25 Range/Units 02:30 Urine Color Lt-Yellow (Lt Yel-Yel) Urine Clarity Clear (Clear/Hazy) Urine pH 5.0 (5.0-7.0) Ur Specific [place] 1.010 (1.001-1.035) Urine Protein Negative (Neg - Trace) Urine Glucose (UA) Negative (Negative) Quality Measures Quality Measures VTE prophylaxis Medications Home Medications and Allergies Allergies Allergy/AdvReac Type Severity Reaction Status Date / Time eucalyptus Allergy Verified 09/07/25 19:08 SODIUM [place] Allergy Uncoded 09/07/25 19:08 TOBACCO Allergy Uncoded 09/07/25 19:08 Visit Medications Acetaminophen (Acetaminophen 325 Mg Tablet) 650 mg PO Q6H PRN PRN Reason: Fever >100.4 or pain 1-3 Stop: 10/07/25 22:44 Hydrocodone Bitart/Acetaminophen (Hydrocodone/Apap 5/325 Tablet) 1 tab PO Q4HR PRN PRN Reason: PAIN SCALE 4-6 (Moderate Stop: 09/12/25 22:44 Apixaban (Apixaban 2.5 Mg Tablet) 5 mg PO BID [facility] Stop: 10/08/25 08:59 Last Admin: 09/08/25 08:15 Dose: 5 mg Famotidine (Famotidine Inj 10 Mg/Ml Vial 2 Ml) 20 mg IVP Q12HR KATINA Stop: 10/08/25 08:59 Last Admin: 09/08/25 08:15 Dose: 20 mg Furosemide (Furosemide Inj 10 Mg/Ml 4ml Vial) 40 mg IVP BID KATINA Stop: 10/08/25 08:59 Last Admin: 09/08/25 08:14 Dose: 40 mg Diltiazem/Sodium Chloride (Diltiazem In Ns 100 Mg) 100 mg in 100 mls @ 5 mls/hr IV .Q20H KATINA; Protocol Stop: 10/07/25 06:00 Last Admin: 09/08/25 02:51 Dose: 15 mg/hr, 15 mls/hr Ondansetron HCl (Ondansetron Inj 2 Mg/Ml Inj 2 Ml) 4 mg IVP Q6HR PRN; Protocol PRN Reason: NAUSEA OR VOMITING Stop: 10/07/25 23:25 Discontinued Medications Apixaban (Apixaban 2.5 Mg Tablet) 5 mg PO X1 ONE Stop: 09/07/25 20:52 Last Admin: 09/07/25 21:21 Dose: 5 mg Aspirin (Aspirin 81 Mg Chew) 324 mg PO X1 ONE Stop: 09/07/25 19:34 Last Admin: 09/07/25 19:52 Dose: 324 mg Diltiazem HCl (Diltiazem Inj 5 Mg/Ml Vial 5 Ml) 10 mg IV X1 ONE Stop: 09/07/25 19:34 Last Admin: 09/07/25 19:49 Dose: 10 mg Diltiazem HCl (Diltiazem Inj 5 Mg/Ml Vial 5 Ml) 10 mg IV X1 ONE Stop: 09/07/25 20:10 Last Admin: 09/07/25 20:20 Dose: 10 mg Diltiazem HCl (Diltiazem Inj 5 Mg/Ml Vial 5 Ml) 10 mg IV X1 ONE Stop: 09/07/25 20:50 Last Admin: 09/07/25 21:19 Dose: 10 mg Diltiazem HCl (Diltiazem Cd 120 Mg Capcr) 360 mg PO QDAY KATINA Stop: 10/08/25 08:59 Diltiazem HCl (Diltiazem Inj 5 Mg/Ml Vial 5 Ml) 10 mg IV X1 ONE Stop: 09/08/25 06:10 Furosemide (Furosemide Inj 10 Mg/Ml 4ml Vial) 20 mg IVP X1 ONE Stop: 09/07/25 21:30 Last Admin: 09/07/25 21:40 Dose: 20 mg Furosemide (Furosemide Inj 10 Mg/Ml Vial 2 Ml) 40 mg IVP X1 ONE Stop: 09/07/25 23:22 Last Admin: 09/08/25 01:15 Dose: 40 mg Sodium Chloride (Ns) 1,000 mls @ 999 mls/hr IV .Q1H1M ONE Stop: 09/07/25 20:33 Last Infusion: 09/07/25 20:52 Dose: Infused Morphine Sulfate (Morphine Sulf Inj 4 Mg/Ml Vial) 4 mg IVP X1 ONE Stop: 09/07/25 19:35 Last Admin: 09/07/25 19:50 Dose: 4 mg Ondansetron HCl (Ondansetron Inj 2 Mg/Ml Inj 2 Ml) 4 mg IVP Q1HR PRN PRN Reason: PERSISTENT NAUSEA OR VOMITING Last Admin: 09/07/25 19:54 Dose: 4 mg Assessment & Plan Plan Patient is a 64-year-old male without past medical history, never followed Dr. In the past was admitted for acute hypoxic respiratory failure secondary due to new onset CHF A-fib with RVR. #Acute hypoxic respiratory failure secondary due to new onset CHF #Acute decompensated severe systolic congestive heart failure, NYHA class III - HFrEF 20-25% #NSTEMI type 2 demand ischemia Patient presented with worsening shortness of breath, orthopnea, dyspnea on exertion with bilateral lower extremity edema Elevated BNP level and hypoxia suggest volume overload and acute heart failure. CTA (-) for PE Echo 09/08/2025: Summary 1. Left ventricle size is mildly enlarged and systolic function is severely reduced. Estimated ejection fraction is 20-25%. There is grade II diastolic dysfunction. Cannot rule out Small LV thrombus. Will need echo contrast study which is not available here. 2. Right ventricle chamber size is normal and systolic function is normal. Estimated RVSP is 37 mmHg. mildly elevated RVSP. 3. There is moderate aortic valve sclerosis with no stenosis and mild regurgitation. 4. There is mild to moderate mitral and tricuspid valve regurgitation. 5. The left atrium is severely enlarged. The right atrium is moderately enlarged. 6. Dilated IVC with estimated RA pressure 15 mmHg. 7. There is trivial pericardial effusion with no tamponade. Recommendations Continue IV 40 daily diuretics to manage fluid overload Strict JP's Fluid restriction Close monitor urine output Keep electrolytes within normal limit, potassium above 4, magnesium above 2 Support with oxygen Once patient vitals are more stable and fluid status is managed, patient will need to be on GDMT for heart failure to optimize long-term management. For now continue with metoprolol Follow-up: outpatient cardiology follow-up to discuss long-term management of heart failure, optimization of medical therapy, and assessment of any potential need for device therapy (e.g., ICD or HISTOLOGIC TECHNICIAN if indicated). #A-fib with RVR new onset Patient was placed on diltiazem drip, however given the low EF, patient was transition to p.o. metoprolol, Continue metoprolol 50 XL daily Continue Eliquis 5 mg twice daily #?LV thrombus seen on ECHO, will need echo contrast study outpatient for now continue Elequise. Patient care was discussed with attending physician Dr. Jac Guerrero MD PGY-3 I have carefully reviewed this document. Due to imperfections in the voice software, there could be grammatical errors including phonetic/typographic errors. This in no way compromises the medical care the patient is receiving Attending Provider Attestation/Addendum I have personally seen and examined the patient separately on the above date of service and discussed the plan of care with the resident. I reviewed the resident Dr. Je Grubbs consultation progress note and agree with the resident findings and plan in the note above and have also edited the documentation to reflect my findings and plan. 62-year-old male with a past medical history of morbid obesity with BMI greater than 40, chronic back pain status post back surgery as well as cervical fusion in 2006 presented to the emergency department for further evaluation of complaint shortness of breath as well as worsening leg swelling in the last couple of weeks. ED Course Summary Vitals: BP 137/115 HR 167 RR 26 T 97.5F O2sat 95% NC 2L Labs: CBC wnl Coag 13.5 (H) INR 1.3 (N) APTT 27.6 (N), glucose 138 T Bili 1.5(H) AST 83 ALT 109 Troponin 0.107 BNP 613 Imaging: EKF afib with RVR, CXR mild heart failure, Liver US Thickened gallbladder wall up to 8 mm, Cirrhosis versus primary hepatocellular disease Treatment: lasix 20mg IVP, eliquis 5mg PO, Diltiazem 10mg IV x3, Dilt drip, zofran 4mg, aspirin 324mg, NS 1L, morphine sulfate 4mg IVP Cardiology consulted for the new onset atrial fibrillation with RVR, elevated troponins as well as possible CHF exacerbation. 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 Patient has increased his weight and was max of around 365 pounds and has lost around 100 pounds over the last couple of years. In the last few weeks patient started noticing worsening shortness of breath along with leg swelling and had limited mobility. Patient then decided to come to the ER for further evaluation as noted above. 1. New onset atrial fibrillation with RVR: Converted to normal sinus rhythm after IV diltiazem pushes as well as the diltiazem drip. Recommend to start on metoprolol XL 50 mg once daily for now and will continue to uptitrate rate based on the blood pressure. Dye potassium greater than 4 magnesium greater than 2.0 at all times. 4 g magnesium sulfate IV as of initial levels 1.9. [id number] 4 elevated recommend to start anticoagulation with Eliquis 5 mg twice daily if no further procedures are planned. Continue telemetry. A-fib with RVR mostly secondary to CHF exacerbation. 2. Mild elevated troponins: Type II NSTEMI mostly from A-fib with RVR as well as CHF. Troponins flat at 0.107 and 0.102. EKG without any acute ST-T changes suggestive of ischemia. Echo does show new onset heart failure and will need further ischemic workup which can be performed as outpatient. 3. New onset severe acute CHF exacerbation with an EF of 20 to 25%. Left ventricle size is mildly enlarged and systolic function is severely reduced. Estimated ejection fraction is 20-25%. There is grade II diastolic dysfunction. Cannot rule out Small LV thrombus. Will need echo contrast study which is not available here. Right ventricle chamber size is normal and systolic function is normal. Estimated RVSP is 37 mmHg. mildly elevated RVSP. Moderate aortic valve sclerosis. Mild AI, mild to moderate MR and TR. Severely dilated LA, moderately dilated RA. Trivial pericardial effusion with no cardiac tamponade. Possible CHF secondary to tachycardia induced cardiomyopathy but will need to rule out ischemic cardiomyopathy but troponins are minimally elevated and no EKG ischemic changes. Start Lasix 40 mg IV once daily and uptitrated to keep net -1 to 2 L/day. Strict input output, daily weights and 2 g sodium diet. Will need goal-directed medical therapy with Entresto as well as spironolactone if blood pressure is permissible as well as if renal function stable which can also be done as outpatient on the day of discharge. 4. Questionable LV thrombus: Will need contrast echo to rule it out but given the severely low EF there is a high possibility of LV thrombus. Patient already on Eliquis for anticoagulation for the A-fib and recommend to continue the same as patient did not follow-up with doctors regularly. Unsure about the compliance of warfarin which is ideally the recommendation hence will continue Eliquis for now. 5. Morbid obesity-counseled about importance of weight loss. Was 365 pounds now up to 265 to 275 pounds. Management of rest of the medical conditions as per primary team and other consultants. Thank you for the consult and allowing me to participate in the care of the patient. Cardiology will continue to follow. Marcus Nathan M.D. Interventional Cardiology
--- NOTE | 2025-09-08 08:40 | XR_ITS ---
Examination: CTA chest with intravenous contrast 2-D reconstructions 3-D reconstructions, vascular Date and time of exam: September 08, 2025, 10:52 a.m. INDICATIONS: Shortness of breath chest pain today CTDI: vol (mGy) 44.2 DLP: (mGycm) 571 Technique: Multiple axial sections of the thorax have been obtained. 3 mm slice thickness, from below the hemidiaphragms to above the apices of the lungs. Mediastinal and lung density settings have been obtained. 2-D sagittal and coronal reconstructions. 3-D angiographic renderings, 3-D volume renderings, 3D post processing, vascular maximum intensity projections obtained. Contrast administered is 100 cc [id number]. Low dose protocols were performed. One or more of the following dose reduction techniques were used; automated exposure control, adjustment of the mA and/or KV according to patient size, use of iterative reconstruction technique. 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
--- NOTE | 2025-09-08 08:49 | PC.SS ---
Follow up note: CHF Exacerbation. Cardio consulting.
[2025-09-08] MEDS: METOPROLOL SUCCINATE XL 25 MG TABCR 50 MG PO ×2 (09:04→18:09)
[2025-09-08 11:17] LABS: Ferritin 65 ng/mL (10.5-307.3); Iron 15 mcg/dL (65-175); Percent Iron Saturation 4 % (20-55); Total Iron Binding Capacity 307 mcg/dL (250-425); Unsaturated Iron Binding 292 (225-295)
--- NOTE | 2025-09-08 17:58 | PC.NURSE ---
Called (troy) who is covering this evening and notified that Pt heart rate is sustaining 130-150
--- NOTE | 2025-09-08 18:19 | PC.NURSE ---
metropolol given for heart rate, per MD order
--- NOTE | 2025-09-08 18:32 | PC.NURSE ---
Notified Dr. Vazquez pt afib and HR 130-140
--- NOTE | 2025-09-08 18:37 | PC.NURSE ---
Per MD Vazquez give 4 gm MG
[2025-09-08] MEDS: Magnesium Sulfate 4 GM Ivpb 4 GM/50 ML BAG IV (18:41)
[2025-09-09] VITALS (18 sets, daily range): BP systolic 99–138; BP diastolic 70–96; PULSE 89–164; RESP 12–26; TEMP 35.9–36.2; O2SAT 95–98
[2025-09-09 06:05] LABS: Basophils # (Auto) 0.1 Thou/mm3 (0.0-0.2); Basophils % (Auto) 1 % (0-2.5); Eosinophils # (Auto) 0.2 Thou/mm3 (0.0-0.5); Eosinophils % (Auto) 3 % (0-10); Hematocrit 39.3 % (41.0-53.0); Hemoglobin 12.4 g/dL (13.5-16.0); Immature Granulocytes Auto 0.02 Thou/mm3 (0.00-0.00); Lymphocytes # (Auto) 1.5 Thou/mm3 (1.0-4.8); Lymphocytes % (Auto) 22 % (10-50); Mean Corpuscular HGB Conc 31.6 g/dl (31.0-37.0); Mean Corpuscular Hemoglobin 28.6 pg (25.0-35.0); Mean Corpuscular Volume 91 fL (80-100); Monocytes # (Auto) 0.7 Thou/mm3 (0.0-0.8); Monocytes % (Auto) 10 % (0-12); Neutrophils # (Auto) 4.2 Thou/mm3 (1.8-7.7); Neutrophils % (Auto) 63 % (37-80); Nucleated Red Blood Cell # 0.00 Thou/mm3 (0.00-0.00); Nucleated Red Blood Cell % 0 /100 WBC (0); Platelet Count 172 Thou/mm3 (140-440); RDW Standard Deviation 51.7 fL (35.1-43.9); Red Blood Count 4.34 Miln/mm3 (4.50-5.90); White Blood Count 6.7 Thou/mm3 (3.8-10.6)
[2025-09-09 06:39] LABS: Alanine Aminotransferase 69 U/L (10-49); Albumin, Serum 3.8 gm/dL (3.4-4.8); Albumin/Globulin Ratio 2.0 (1.2-2.2); Alkaline Phosphatase 67 U/L (46-116); Anion Gap 9 (7-16); Aspartate Amino Transferase 30 U/L (0-34); BUN/Creatinine Ratio 13 Ratio (12-20); Bilirubin,Total 0.8 mg/dL (0.3-1.2); Blood Urea Nitrogen 13 mg/dL (9-23); Calcium 8.6 mg/dL (8.3-10.6); Calcium (Corrected) 8.8 mg/dL (8.5-10.1); Carbon Dioxide 29.8 mMol/L (20.0-31.0); Chloride 107 mMol/L (98-107); Creatinine (Component) 1.0 mg/dL (0.6-1.3); Globulin 1.9 gm/dL (2.3-3.5); Glucose 102 mg/dL (74-106); Magnesium 2.2 mg/dL (1.6-2.6); Osmolality,Calculated 290 (275-295); Phosphorous 3.7 mg/dL (2.4-5.1); Potassium 3.6 mMol/L (3.4-5.1); Sodium 146 mMol/L (136-145); Total Protein 5.7 gm/dL (5.7-8.2); eGFR > 60 See Note
[2025-09-09] MEDS: METOPROLOL SUCCINATE XL 25 MG TABCR 50 MG PO ×2 (08:09→21:10)
[2025-09-09] MEDS: APIXABAN 2.5 MG TABLET 5 MG PO ×2 (08:10→21:10)
[2025-09-09] MEDS: FUROSEMIDE INJ 10 MG/ML 4ML VIAL 40 MG IVP (08:10)
[2025-09-09] MEDS: FAMOTIDINE INJ 10 MG/ML VIAL 2 ML 20 MG IVP ×2 (08:11→21:10)
--- NOTE | 2025-09-09 08:14 | PD.RESPRO ---
Documentation for date of: 09/09/25 Subjective Subjective Interval history: A 64-year-old male with no significant past medical history presented to the ED with worsening shortness of breath over the past two weeks, along with orthopnea, dyspnea on exertion, and weight gain. He also reported bilateral lower extremity edema. The patient has a sedentary lifestyle due to a history of back injury and surgeries. He denied chest pain, nausea, or vomiting. In the ED, the patient was hypoxic, with labs showing mildly elevated troponin and elevated BNP. He developed atrial fibrillation with a rapid ventricular response of 170. The patient was started on a diltiazem drip to control the heart rate and was admitted for acute hypoxic respiratory failure due to new-onset CHF and A-fib with RVR. Diuretics and anticoagulation were initiated, and cardiology was consulted for further management. Past medical history none Past surgical history back surgeries in 2006 Allergies tobacco Social living at home with son, denies smoking, alcohol or any other drug use. 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 No acute overnight events. Patient is saturating 96% on 3 liters, oxygen demands slowly decreasing. Renal function improving, creatinine is down from 1.3-1, overall he is stating that he is feeling much better. Currently patient is on Lasix 40 mg IV twice daily, can be continued with 40 daily, close monitor electrolytes, vitals are stable, A-fib, however rate controlled. Continue with metoprolol and Eliquis. Increase metoprolol to 50 mg twice daily blood pressure is permissible and systolic blood pressure greater than 100 mmHg. Also started on digoxin 0.25 mg every 6 hours for the next 24 hours for loading digoxin and then we will start the patient on 0.25 mg once daily after that from Tomorrow. Patient will need goal-directed medical therapy with Entresto and spironolactone if blood pressure is permissible. And continue close monitoring renal function. Exam Vital Signs Temp Pulse Resp BP Pulse Ox O2 Del Method O2 Flow Rate 97.1 F 99 19 138/96 H 96 Nasal Cannula 3 09/09/25 07:30 09/09/25 07:30 09/09/25 07:30 09/09/25 07:30 09/09/25 07:30 09/09/25 07:30 09/09/25 07:30 FiO2 4 09/08/25 10:21 Narrative Exam GENERAL: no acute distress, AAO x3. Obese HEENT: Head AT/ NC. Mucous membranes moist. PERRL. NECK: Supple, no lymphadenopathy, no carotid bruits. CARDIOVASCULAR: Irregular RR. Normal S1/S2, No m/r/g. 2+ pitting edema of BL LEs, more on R side RESPIRATORY: No wheezing, rhonchi, crackles. GASTROINTESTINAL: Abdomen soft, non tender no palpable masses. Bowel sounds present in all 4 quadrants. NEUROLOGICAL: CN II-XII grossly intact. No focal deficits. Sensation intact, symmetric. PSYCHIATRIC: Awake and alert, not agitated, normal mood and affect. INTEGUMENTARY: No obvious rashes, no jaundice, normal turgor. Objective Labs 09/09/25 05:17 09/09/25 05:17 Labs: Laboratory Results - last 24 hr 09/08/25 09/08/25 09/09/25 08:20 10:20 05:17 WBC 6.7 RBC 4.34 L Hgb 12.4 L Hct 39.3 L MCV 91 MCH 28.6 MCHC 31.6 RDW Std Deviation 51.7 H Plt Count 172 D Neut % (Auto) 63 Lymph % (Auto) 22 Crockett % (Auto) 10 Eos % (Auto) 3 Baso % (Auto) 1 Neut # (Auto) 4.2 Lymph # (Auto) 1.5 Crockett # (Auto) 0.7 Eos # (Auto) 0.2 Baso # (Auto) 0.1 Immature Gran # (Auto) 0.02 H Absolute Nucleated RBC 0.00 Immature Gran % 0 Nucleated RBC % 0 Sodium 146 H Potassium 3.6 D Chloride 107 Carbon Dioxide 29.8 Anion Gap 9 BUN 13 Creatinine 1.0 Estim Creat Clear Calc Not Performed. eGFR > 60 BUN/Creatinine Ratio 13 Glucose 102 Calculated Osmolality 290 Calcium 8.6 Corrected Calcium 8.8 Phosphorus 3.7 Magnesium 2.2 Iron 15 L TIBC 307 Iron Saturation 4 L Unsat Iron Binding 292 Ferritin 65 Total Bilirubin 0.8 AST 30 ALT 69 H Alkaline Phosphatase 67 D Troponin I Cancelled Total Protein 5.7 Albumin 3.8 Globulin 1.9 L Albumin/Globulin Ratio 2.0 Quality Measures Quality Measures VTE prophylaxis Assessment & Plan Assessment Current Active Medications: Generic Name Dose Route Start Last Admin Trade Name Freq PRN Reason Stop Dose Admin Acetaminophen 650 mg 09/07/25 22:45 Acetaminophen 325 Mg Tablet PO 10/07/25 22:44 Q6H PRN Fever >100.4 or pain 1-3 Hydrocodone Bitart/Acetaminophen 1 tab 09/07/25 22:45 Hydrocodone/Apap 5/325 Tablet PO 09/12/25 22:44 Q4HR PRN PAIN SCALE 4-6 (Moderate Apixaban 5 mg 09/08/25 09:00 09/08/25 20:52 Apixaban 2.5 Mg Tablet PO 10/08/25 08:59 5 mg BID KATINA Administration Famotidine 20 mg 09/08/25 09:00 09/08/25 20:52 Famotidine Inj 10 Mg/Ml Vial 2 Ml IVP 10/08/25 08:59 20 mg Q12HR KATINA Administration Furosemide 40 mg 09/08/25 09:00 09/08/25 20:51 Furosemide Inj 10 Mg/Ml 4ml Vial IVP 10/08/25 08:59 40 mg BID KATINA Administration Metoprolol Succinate 50 mg 09/08/25 09:00 09/08/25 09:04 Metoprolol Succinate Xl 25 Mg Tabcr PO 10/08/25 08:59 50 mg QDAY KATINA Administration Ondansetron HCl 4 mg 09/07/25 23:26 Ondansetron Inj 2 Mg/Ml Inj 2 Ml IVP 10/07/25 23:25 Q6HR PRN NAUSEA OR VOMITING Protocol Plan Patient is a 64-year-old male without past medical history, never followed . In the past was admitted for acute hypoxic respiratory failure secondary due to new onset CHF A-fib with RVR. #Acute hypoxic respiratory failure secondary due to new onset CHF-improving #Acute decompensated severe systolic congestive heart failure, NYHA class III - HFrEF 20-25% #NSTEMI type 2 demand ischemia Patient presented with worsening shortness of breath, orthopnea, dyspnea on exertion with bilateral lower extremity edema Elevated BNP level and hypoxia suggest volume overload and acute heart failure. CTA (-) for PE Echo 09/08/2025: Summary 1. Left ventricle size is mildly enlarged and systolic function is severely reduced. Estimated ejection fraction is 20-25%. There is grade II diastolic dysfunction. Cannot rule out Small LV thrombus. Will need echo contrast study which is not available here. 2. Right ventricle chamber size is normal and systolic function is normal. Estimated RVSP is 37 mmHg. mildly elevated RVSP. 3. There is moderate aortic valve sclerosis with no stenosis and mild regurgitation. 4. There is mild to moderate mitral and tricuspid valve regurgitation. 5. The left atrium is severely enlarged. The right atrium is moderately enlarged. 6. Dilated IVC with estimated RA pressure 15 mmHg. 7. There is trivial pericardial effusion with no tamponade. 09/09/2025: Oxygen demand slowly decreasing, currently is on 3 L saturating 96% Patient net 3 L on Lasix 40 mg twice daily, will recommend to switch to 40 daily Renal panel improving, patient is having adequate urine output with improvement of creatinine from 1.3-1 Electrolytes replaced as needed Conntinue with metoprolol and Eliquis. Increase metoprolol to 50 mg twice daily blood pressure is permissible and systolic blood pressure greater than 100 mmHg. Also started on digoxin 0.25 mg every 6 hours for the next 24 hours for loading digoxin and then we will start the patient on 0.25 mg once daily after that from Tomorrow. Patient will need goal-directed medical therapy with Entresto and spironolactone if blood pressure is permissible. And continue close monitoring renal function. Recommendations Continue IV 40 daily diuretics to manage fluid overload Strict JP's Fluid restriction Close monitor urine output Keep electrolytes within normal limit, potassium above 4, magnesium above 2 Support with oxygen For A-fib Continue with metoprolol 50 mL once daily for now and if needed we will continue to uptitrate based on the blood pressure. [id number] score is 4, recommended to continue with Eliquis twice daily Once patient vitals are more stable and fluid status is managed, patient will need to be on GDMT for heart failure to optimize long-term management. For now continue with metoprolol, On the day before discharge, after active diuresis is stopped and fluid status is appropriately managed, with stable vitals, Entresto can be initiated. Spironolactone will also need to be started. If GDMT is introduced with active diuresis, there is an increased risk of severe hypotension. Follow-up: outpatient cardiology follow-up to discuss long-term management of heart failure, optimization of medical therapy, and assessment of any potential need for device therapy (e.g., ICD or CONSERVATION PLANNER if indicated). #A-fib with RVR new onset Patient was placed on diltiazem drip, however given the low EF, patient was transition to p.o. metoprolol, Continue metoprolol 50 XL daily Continue Eliquis 5 mg twice daily #?LV thrombus seen on ECHO, will need echo contrast study outpatient for now continue Elequise. Patient care was discussed with attending physician Dr. Jac Guerrero MD PGY-3 I have carefully reviewed this document. Due to imperfections in the voice software, there could be grammatical errors including phonetic/typographic errors. This in no way compromises the medical care the patient is receiving Attending Provider Attestation/Addendum I have personally seen and examined the patient separately on the above date of service and discussed the plan of care with the resident. I reviewed the resident Dr. Sofia Sarabia consultation progress note and agree with the resident findings and plan in the note above and have also edited the documentation to reflect my findings and plan. Marcus Nathan M.D. Interventional Cardiology
--- NOTE | 2025-09-09 08:32 | PC.NURSE ---
Verified Lasix, eliquis, famotidine, metoprolol, and potassium chloride with Fabian BRICEÑO
--- NOTE | 2025-09-09 10:43 | ESPR_ITS ---
<Statement entered by Manas Valera MD - 09/10/25 14:55> Patient seen and examined at bedside. I discussed and supervised with the engineer intern physician who took care of this patient. I personally saw and examined the patient. I agree with most of the assessment and plan. Plan of care discussed with attending Dr. Bin Valera MD PGY-2 Documentation for date of: 09/09/25 Subjective Subjective Interval history: Patient reported improve in shortness of breath, currently 98% on 3L NC. Heart rate on tele monitor showed 130s-170s. Denied chest pain, palpitation, shortness of breath. Admitted to occasional dizziness. Blood pressure is 113/83. Administered Metoprolol tartrate 2mg IV for rate control. Echo showed LVEF 20- 25% with both diastolic and systolic dysfunction. Will not administer diltiazem at this time. Currently on metoprolol succinate 50mg PO QD and Lasix 40mg IV BID. Dr. Guerrero updated, appreciate recs. Will change to metoprolol succinate 100mg BID and Lasix 40mg IV QD. Exam Vital Signs Temp Pulse Resp BP Pulse Ox O2 Del Method O2 Flow Rate 97.1 F 101 H 19 138/96 H 96 Nasal Cannula 3 09/09/25 07:30 09/09/25 08:10 09/09/25 07:30 09/09/25 08:10 09/09/25 07:30 09/09/25 07:30 09/09/25 07:30 FiO2 4 09/08/25 10:21 Narrative Exam GENERAL APPEARANCE: AOx4. NAD, activity normal for age, well developed/ well nourished, no cyanosis, pallor, or diaphoresis. Laying on back, no orhopnea at the moment. HEENT: Normocephalic atraumatic, no facial trauma, neck is supple. Lids/conjunctiva normal. Mucous membranes moist, nares normal, lips/teeth normal uvula midline without oral pharyngeal erythema, exudate or swelling TMs normal bilaterally. No lymphangitis/lymphedema. CARDIAC: Irregular rhythm RESPIRATORY: respiratory effort normal, speaks in full sentences, on 3L NC. Crackles auscultated in R lung quadrants and bronchial breath sounds in L lung. No wheezes heard. ABDOMINAL: NBS. Soft, ND/NT. No evidence of fluid wave. No pulsatile masses on exam, rebound tenderness, Skelton sign or pain over Mcburney's point. MUSCLES/EXTREMITIES: No abnormal range of motion. +1 Pedal edema DERM: Warm, pink and dry. No rashes, dermatoses, petechiae or lesions. No bronzing of the shins NEUROLOGICAL: Speech is clear and appropriate. Normal level of consciousness. 5/5 strength in all extremities. PSYCH: Normal mood and affect. Judgement/competence is appropriate Objective Labs 09/10/25 04:31 09/10/25 06:50 Labs: Laboratory Results - last 24 hr 09/08/25 09/09/25 10:20 05:17 WBC 6.7 RBC 4.34 L Hgb 12.4 L Hct 39.3 L MCV 91 MCH 28.6 MCHC 31.6 RDW Std Deviation 51.7 H Plt Count 172 D Neut % (Auto) 63 Lymph % (Auto) 22 Lucas % (Auto) 10 Eos % (Auto) 3 Baso % (Auto) 1 Neut # (Auto) 4.2 Lymph # (Auto) 1.5 Lucas # (Auto) 0.7 Eos # (Auto) 0.2 Baso # (Auto) 0.1 Immature Gran # (Auto) 0.02 H Absolute Nucleated RBC 0.00 Immature Gran % 0 Nucleated RBC % 0 Sodium 146 H Potassium 3.6 D Chloride 107 Carbon Dioxide 29.8 Anion Gap 9 BUN 13 Creatinine 1.0 Estim Creat Clear Calc Not Performed. eGFR > 60 BUN/Creatinine Ratio 13 Glucose 102 Calculated Osmolality 290 Calcium 8.6 Corrected Calcium 8.8 Phosphorus 3.7 Magnesium 2.2 Iron 15 L TIBC 307 Iron Saturation 4 L Unsat Iron Binding 292 Ferritin 65 Total Bilirubin 0.8 AST 30 ALT 69 H Alkaline Phosphatase 67 D Total Protein 5.7 Albumin 3.8 Globulin 1.9 L Albumin/Globulin Ratio 2.0 Quality Measures Quality Measures VTE prophylaxis Assessment & Plan Assessment Current Active Medications: Generic Name Dose Route Start Last Admin Trade Name Freq PRN Reason Stop Dose Admin Acetaminophen 650 mg 09/07/25 22:45 Acetaminophen 325 Mg Tablet PO 10/07/25 22:44 Q6H PRN Fever >100.4 or pain 1-3 Hydrocodone Bitart/Acetaminophen 1 tab 09/07/25 22:45 Hydrocodone/Apap 5/325 Tablet PO 09/12/25 22:44 Q4HR PRN PAIN SCALE 4-6 (Moderate Apixaban 5 mg 09/08/25 09:00 09/09/25 08:10 Apixaban 2.5 Mg Tablet PO 10/08/25 08:59 5 mg BID KATINA Administration Famotidine 20 mg 09/08/25 09:00 09/09/25 08:11 Famotidine Inj 10 Mg/Ml Vial 2 Ml IVP 10/08/25 08:59 20 mg Q12HR KATINA Administration Furosemide 40 mg 09/08/25 09:00 09/09/25 08:10 Furosemide Inj 10 Mg/Ml 4ml Vial IVP 10/08/25 08:59 40 mg BID KATINA Administration Metoprolol Succinate 50 mg 09/08/25 09:00 09/09/25 08:09 Metoprolol Succinate Xl 25 Mg Tabcr PO 10/08/25 08:59 50 mg QDAY KATINA Administration Ondansetron HCl 4 mg 09/07/25 23:26 Ondansetron Inj 2 Mg/Ml Inj 2 Ml IVP 10/07/25 23:25 Q6HR PRN NAUSEA OR VOMITING Protocol Plan 64yo obese male w/ pmhx of chronic back pain s/p cervical fusion (2006) presents to ED with progressively worsening shortness of breath over the last 1-2 weeks. Admitted for AHRF with new onset afib w/ RVR. Initial weight 130.266kg #AHRF #New onset A fib with RVR #New onset CHF #NSTEMI type II #LV thrombus DDx: HTN, ICNDY, OHS Most likely HTN that patient has not been managing, very poor doctor follow up after 2011, OHS to be considered, however patient has lost over 100lbs, and CINDY is less likely because he does not have headaches upon waking and generally feels well rested, neck circumference also appears to be under 40cm; however STOP BANG score of 3. Patient presented respiratory distress and SOB the last 2 weeks. In ED oxygen saturation went down to 92% corrected with NC. He has crackles in the lungs and +2 bilateral pretibial edema. EKG shows afib with RVR. CXR revealed mild heart failure. He was given 3x dilt 10mg Inj and started on dilt drip 5-15mg/h and lasix 20mg and 40mg IV in ED. His HR lowered to 102 and BP 125/82. His orthopnea has lessened and he has not had any chest pain nor noticed palpitations. Troponins: 0.107 -->0.0100, BNP 613. 09/09: Heart rate on tele monitor showed 130s-170s. Denied chest pain, palpitation, shortness of breath. Admitted to occasional dizziness. Blood pressure is 113/83. Administered Metoprolol tartrate 2mg IV for rate control. Echo showed LVEF 20-25% with both diastolic and systolic dysfunction. Will not administer diltiazem at this time. Currently on metoprolol succinate 50mg PO QD and Lasix 40mg IV BID. Dr. Guerrero updated, appreciate recs. Plan: -Recheck heart rate -Strict I/Os -Fluid restriction 1.5L -Head of bed elevation -Continue Eliquis 5mg BID -Cards, Dr. Nathan, consulted, recs appreciated: continue IV diuretics, metoprolol 50 XL daily, Eliquis 5 mg twice daily, GDMT for long-term HF management -Increase to Metoprolol succinate 100mg PO QD -Decrease to Lasix 40mg QD IV #Transaminitis #Hyperbilirubinemia #Liver cirrhosis Patient reports minimal PO intake the last week due to SOB, elevated labs most likely due to hepatic congestion in setting of CHF. No abdominal TTP or murphys sign on physical exam, no jaundice, no scleral icterus, no mucousal darkening. T Bili 1.5(H) AST 83 ALT 109. Liver US showed irregular liver contour, thickened gallbladder wall up to 8 mm, cirrhosis versus primary hepatocellular disease. Transaminitis likely secondary to new onset CHF 09/09: improving Plan: -Optimize HF management as above -Follow up outpatient for possible liver cirrhosis workup #Pre-diabetes No history of diabetes, family history of strokes and heart disease. Patient not seen by doctor, is morbidly obese, recently lost 100lbs over the course of a year. Patient has limited mobility due to back pain. Cannot walk more than a mile due to pain. Is still morbidy obese since losing the weight. Blood glucose on admission is 138mg/dl. A1c 5.6% Plan: -Lifestyle modification -Cardiac and low carb diet Health Maintenance: Code status: Full DVT prophylaxis: Eliquis 5mg BID GI prophylaxis: Famotidine Diet: Cardiac Kiran: Yes Lines: PIV Supplemental O2: NC and oxy mask prn Disposition: Tele Assessment and plan discussed with my attending physician Dr. Steward and Dr. Valera (PGY-2). Dr. Shukla (PGY-1) ? vice president residential solar sales Attending Provider Attestation/Addendum I have seen and examined the patient. I was physically present for the castle portions of the services provided including history, physical exam, diagnosis, treatment plans and orders. I agree with assessment and plan of care as documented by residents. Even though this this note was carefully revised there may still be minor errors in clinical medical transcriptionist due to voice recognition software. Sheryl Steward MD
--- NOTE | 2025-09-09 10:59 | PC.SS ---
Late note 09-09-25: SS met with patient regarding his d/c plan. Pt is alert/oriented. Pt was admitted for New Onset AFIB. Pt confirmed demographic and contact information is correct on facesheet. Pt resides with his son. Pt ambulates using a cane. Pt is ok with all ADLs. Pt is currently on 4 liters of O2. Pt does not utilizes O2 at home. Patient?s pharmacy of choice is [facility] on [address]. Pt named her son, Cecil medical decision maker if he is unable. Patient?s choice is to return home upon d/c. Pt does not have an advance directive, SS offered, and pt declined. Pt states he is not diabetic and is not on dialysis. D/C plan: Return home Next of Kin: Cecil Doe, son, phone# [phone] PCP: Pt will establish on his own Address: Correct on facesheet
[2025-09-09] MEDS: FERROUS SULF 325 MG TABLET PO (11:25)
[2025-09-09] MEDS: METOPROLOL TARTRATE INJ 1 MG/ML AMP 5 ML 2 MG IVP (11:28)
[2025-09-09] MEDS: METOPROLOL TARTRATE INJ 1 MG/ML AMP 5 ML 5 MG IVP (12:29)
[2025-09-09] MEDS: DIGOXIN 0.125 MG TABLET 0.25 MG PO ×2 (12:49→19:40)
[2025-09-09 13:49] LABS: Cocci Serology, IgM Negative (Negative)
[2025-09-09] MEDS: Magnesium Sulfate 2 GM Ivpb 2 GM/50 ML BAG IV (19:40)
[2025-09-10] VITALS (15 sets, daily range): BP systolic 105–134; BP diastolic 78–97; PULSE 62–146; RESP 17–25; TEMP 36–36.6; O2SAT 95–98
[2025-09-10] MEDS: ONDANSETRON INJ 2 MG/ML INJ 2 ML 4 MG IVP (05:43)
[2025-09-10] MEDS: DIGOXIN 0.125 MG TABLET 0.25 MG PO ×2 (06:12→14:15)
[2025-09-10 06:41] LABS: Basophils # (Auto) 0.2 Thou/mm3 (0.0-0.2); Basophils % (Auto) 2 % (0-2.5); Eosinophils # (Auto) 0.2 Thou/mm3 (0.0-0.5); Eosinophils % (Auto) 2 % (0-10); Hematocrit 41.3 % (41.0-53.0); Hemoglobin 13.0 g/dL (13.5-16.0); Immature Granulocytes Auto 0.02 Thou/mm3 (0.00-0.00); Lymphocytes # (Auto) 1.9 Thou/mm3 (1.0-4.8); Lymphocytes % (Auto) 23 % (10-50); Mean Corpuscular HGB Conc 31.5 g/dl (31.0-37.0); Mean Corpuscular Hemoglobin 28.7 pg (25.0-35.0); Mean Corpuscular Volume 91 fL (80-100); Monocytes # (Auto) 0.8 Thou/mm3 (0.0-0.8); Monocytes % (Auto) 10 % (0-12); Neutrophils # (Auto) 5.1 Thou/mm3 (1.8-7.7); Neutrophils % (Auto) 63 % (37-80); Nucleated Red Blood Cell # 0.00 Thou/mm3 (0.00-0.00); Nucleated Red Blood Cell % 0 /100 WBC (0); Platelet Count 186 Thou/mm3 (140-440); RDW Standard Deviation 51.3 fL (35.1-43.9); Red Blood Count 4.53 Miln/mm3 (4.50-5.90); White Blood Count 8.1 Thou/mm3 (3.8-10.6)
[2025-09-10 07:32] LABS: Alanine Aminotransferase 58 U/L (10-49); Albumin, Serum 4.2 gm/dL (3.4-4.8); Albumin/Globulin Ratio 1.8 (1.2-2.2); Alkaline Phosphatase 73 U/L (46-116); Anion Gap 9 (7-16); Aspartate Amino Transferase 23 U/L (0-34); BUN/Creatinine Ratio 16 Ratio (12-20); Bilirubin,Total 1.0 mg/dL (0.3-1.2); Blood Urea Nitrogen 18 mg/dL (9-23); Calcium 9.6 mg/dL (8.3-10.6); Calcium (Corrected) 9.6 mg/dL (8.5-10.1); Carbon Dioxide 29.3 mMol/L (20.0-31.0); Chloride 105 mMol/L (98-107); Creatinine (Component) 1.1 mg/dL (0.6-1.3); Globulin 2.4 gm/dL (2.3-3.5); Glucose 106 mg/dL (74-106); Magnesium 2.5 mg/dL (1.6-2.6); Osmolality,Calculated 286 (275-295); Phosphorous 3.3 mg/dL (2.4-5.1); Potassium 4.4 mMol/L (3.4-5.1); Sodium 143 mMol/L (136-145); Total Protein 6.6 gm/dL (5.7-8.2); eGFR > 60 See Note
[2025-09-10] MEDS: APIXABAN 2.5 MG TABLET 5 MG PO ×2 (08:25→20:45)
[2025-09-10] MEDS: METOPROLOL SUCCINATE XL 25 MG TABCR 50 MG PO ×2 (08:26→20:45)
[2025-09-10] MEDS: FAMOTIDINE INJ 10 MG/ML VIAL 2 ML 20 MG IVP ×2 (08:27→20:45)
[2025-09-10] MEDS: FUROSEMIDE INJ 10 MG/ML 4ML VIAL 40 MG IVP (08:28)
--- NOTE | 2025-09-10 08:30 | ESPR_ITS ---
<Statement entered by Manas Valera MD - 09/10/25 18:00> Patient seen and examined at bedside. I discussed and supervised with the internet marketing specialist physician who took care of this patient. I personally saw and examined the patient. I agree with most of the assessment and plan. Continuing to optimize medical management of afib using metoprolol. Cardiology following. Continuing diuresis with IV Lasix, patient had inadequate urine output today. Plan of care discussed with attending Dr. Booker. Manas Valera MD PGY-2 Documentation for date of: 09/10/25 Subjective Subjective Interval history: No acute event overnight.? Patient reported improving shortness of breath, does not feel like he needs to work hard to catch his breath.? Satting 96% on 2 L nasal cannula.? Able to mobilize from bed to chair.? Heart rate still in the 110s to 150s. Asymptomatic at this time. Oven Tender, Dr. Nathan, consulted, appreciate recs: Change Lasix 40 mg IV twice daily to 40 mg daily, continue Eliquis, metoprolol 50 twice daily with SBP > 100, started digoxin 0.25 mg every 8 hour x 3 doses x 24 hours for loading dose then 0.25 mg once daily, plan for GDMT with Entresto and spironolactone Exam Vital Signs Temp Pulse Resp BP Pulse Ox O2 Del Method O2 Flow Rate 97.1 F 131 H 21 H 117/92 H 97 Nasal Cannula 2 09/10/25 08:00 09/10/25 08:28 09/10/25 08:00 09/10/25 08:28 09/10/25 08:00 09/10/25 08:00 09/10/25 07:58 FiO2 4 09/09/25 09:00 Narrative Exam GENERAL APPEARANCE: AOx4. NAD, activity normal for age, well developed/ well nourished, no cyanosis, pallor, or diaphoresis. Laying on back, no orthopnea at the moment. HEENT: Normocephalic atraumatic, no facial trauma, neck is supple. Lids/conjunctiva normal. Mucous membranes moist, nares normal, lips/teeth normal uvula midline without oral pharyngeal erythema, exudate or swelling TMs normal bilaterally. No lymphangitis/lymphedema. CARDIAC: Irregular rhythm RESPIRATORY: respiratory effort normal, speaks in full sentences, on 2L NC. Mild crackles auscultated in R lung quadrants and bronchial breath sounds in L lung. No wheezes heard. ABDOMINAL: NBS. Soft, ND/NT. No evidence of fluid wave. No pulsatile masses on exam, rebound tenderness, Skelton sign or pain over Mcburney's point. MUSCLES/EXTREMITIES: No abnormal range of motion. +1 Pedal edema DERM: Warm, pink and dry. No rashes, dermatoses, petechiae or lesions. No bronzing of the shins NEUROLOGICAL: Speech is clear and appropriate. Normal level of consciousness. 5/5 strength in all extremities. PSYCH: Normal mood and affect. Judgement/competence is appropriate Objective Labs 09/11/25 05:15 09/11/25 05:15 Labs: Laboratory Results - last 24 hr 09/08/25 09/10/25 09/10/25 02:20 04:31 06:50 WBC 8.1 RBC 4.53 Hgb 13.0 L Hct 41.3 MCV 91 MCH 28.7 MCHC 31.5 RDW Std Deviation 51.3 H Plt Count 186 Neut % (Auto) 63 Lymph % (Auto) 23 [place] % (Auto) 10 Eos % (Auto) 2 Baso % (Auto) 2 Neut # (Auto) 5.1 Lymph # (Auto) 1.9 [place] # (Auto) 0.8 Eos # (Auto) 0.2 Baso # (Auto) 0.2 Immature Gran # (Auto) 0.02 H Absolute Nucleated RBC 0.00 Immature Gran % 0 Nucleated RBC % 0 Sodium 143 Potassium 4.4 D Chloride 105 Carbon Dioxide 29.3 Anion Gap 9 BUN 18 Creatinine 1.1 Estim Creat Clear Calc Not Performed. eGFR > 60 BUN/Creatinine Ratio 16 Glucose 106 Calculated Osmolality 286 Calcium 9.6 Corrected Calcium 9.6 Phosphorus 3.3 Magnesium 2.5 Total Bilirubin 1.0 AST 23 ALT 58 H Alkaline Phosphatase 73 Total Protein 6.6 Albumin 4.2 Globulin 2.4 Albumin/Globulin Ratio 1.8 Coccidioides IgM Ab Negative Quality Measures Quality Measures VTE prophylaxis Assessment & Plan Assessment Current Active Medications: Generic Name Dose Route Start Last Admin Trade Name Freq PRN Reason Stop Dose Admin Acetaminophen 650 mg 09/07/25 22:45 Acetaminophen 325 Mg Tablet PO 10/07/25 22:44 Q6H PRN Fever >100.4 or pain 1-3 Hydrocodone Bitart/Acetaminophen 1 tab 09/07/25 22:45 Hydrocodone/Apap 5/325 Tablet PO 09/12/25 22:44 Q4HR PRN PAIN SCALE 4-6 (Moderate Apixaban 5 mg 09/08/25 09:00 09/10/25 08:25 Apixaban 2.5 Mg Tablet PO 10/08/25 08:59 5 mg BID KATINA Administration Digoxin 0.25 mg 09/09/25 19:10 09/10/25 06:12 Digoxin 0.125 Mg Tablet PO 09/10/25 14:01 0.25 mg Q8HR KATINA Administration Famotidine 20 mg 09/08/25 09:00 09/10/25 08:27 Famotidine Inj 10 Mg/Ml Vial 2 Ml IVP 10/08/25 08:59 20 mg Q12HR KATINA Administration Ferrous Sulfate 325 mg 09/09/25 11:15 09/09/25 11:25 Ferrous Sulf 325 Mg Tablet PO 10/09/25 11:14 325 mg QOD KATINA Administration Furosemide 40 mg 09/10/25 09:00 09/10/25 08:28 Furosemide Inj 10 Mg/Ml 4ml Vial IVP 10/10/25 08:59 40 mg QDAY KATINA Administration Metoprolol Succinate 50 mg 09/09/25 21:00 09/10/25 08:26 Metoprolol Succinate Xl 25 Mg Tabcr PO 10/09/25 20:59 50 mg BID KATINA Administration Ondansetron HCl 4 mg 09/07/25 23:26 09/10/25 05:43 Ondansetron Inj 2 Mg/Ml Inj 2 Ml IVP 10/07/25 23:25 4 mg Q6HR PRN Administration NAUSEA OR VOMITING Protocol Plan 64yo obese male w/ pmhx of chronic back pain s/p cervical fusion (2006) presents to ED with progressively worsening shortness of breath over the last 1-2 weeks. Admitted for AHRF with new onset afib w/ RVR. Initial weight 130.266kg #AHRF #New onset A fib with RVR #New onset CHF #NSTEMI type II #LV thrombus DDx: HTN, CINDY, OHS Most likely HTN that patient has not been managing, very poor doctor follow up after 2011, OHS to be considered, however patient has lost over 100lbs, and CINDY is less likely because he does not have headaches upon waking and generally feels well rested, neck circumference also appears to be under 40cm; however STOP BANG score of 3. Patient presented respiratory distress and SOB the last 2 weeks. In ED oxygen saturation went down to 92% corrected with NC. He has crackles in the lungs and +2 bilateral pretibial edema. EKG shows afib with RVR. CXR revealed mild heart failure. He was given 3x dilt 10mg Inj and started on dilt drip 5-15mg/h and lasix 20mg and 40mg IV in ED. His HR lowered to 102 and BP 125/82. His orthopnea has lessened and he has not had any chest pain nor noticed palpitations. Troponins: 0.107 -->0.0100, BNP 613. 09/10: Oven Tender, Dr. Nathan, consulted, appreciate recs. Currently on metoprolol succinate 50mg PO QD, Lasix 40mg IV QD, digoxin 0.25mg Q8H. Heart rate still in the 110s to 150s. Asymptomatic at this time. Plan: -Close monitor of heart rate -Strict I/Os -Fluid restriction 1.5L -Head of bed elevation -Continue Eliquis 5mg BID -Cards, Dr. Nathan, consulted, recs appreciated -Continue Metoprolol succinate 50mg PO BID -Continue to Lasix 40mg QD IV -Continue digoxin 0.25mg Q8H for 24h then 0.25mg QD after #Transaminitis #Hyperbilirubinemia #Liver cirrhosis Patient reports minimal PO intake the last week due to SOB, elevated labs most likely due to hepatic congestion in setting of CHF. No abdominal TTP or murphys sign on physical exam, no jaundice, no scleral icterus, no mucousal darkening. T Bili 1.5(H) AST 83 ALT 109. Liver US showed irregular liver contour, thickened gallbladder wall up to 8 mm, cirrhosis versus primary hepatocellular disease. Transaminitis likely secondary to new onset CHF 09/10: LFT overall improving Plan: -Optimize HF management as above -Follow up outpatient for possible liver cirrhosis workup #Pre-diabetes No history of diabetes, family history of strokes and heart disease. Patient not seen by doctor, is morbidly obese, recently lost 100lbs over the course of a year. Patient has limited mobility due to back pain. Cannot walk more than a mile due to pain. Is still morbidy obese since losing the weight. Blood glucose on admission is 138mg/dl. A1c 5.6% Plan: -Lifestyle modification -Cardiac and low carb diet Health Maintenance: Code status: Full DVT prophylaxis: Eliquis 5mg BID GI prophylaxis: Famotidine Diet: Cardiac Kiran: Yes Lines: PIV Supplemental O2: NC and oxy mask prn Disposition: Tele Assessment and plan discussed with my attending physician Dr. Booker and Dr. Valera (PGY-2). Dr. Shukla (PGY-1) ? president ergonomic consulting Attending Provider Attestation/Addendum I, Shantelle Booker, , attest that I was physically present for the castle portions of the service and evaluated the patient with the resident and I reviewed and discussed the case with the resident and agree with the resident's findings and plans of care as documented above Patient seen and eval this a.m. He remains on 2 L nasal cannula. Patient states that he easily gets short of breath with exertion. Patient stated that he had progressively worsening symptoms over the course of a few months which he had initially thought was due to allergies. However, patient states that he had renovated in his house, but but without any improvement of his symptoms. He reported a near syncopal episode due to dyspnea on exertion while going to the bathroom at home, which prompted him to come to the ED. Patient remains to be in A-fib with heart rate ranging between 40s to 130. He continues to receive digoxin 0.25 mg 3 times daily. He also remains on metoprolol p.o. twice daily. Discussed with patient his echo results and the need for goal-directed medical therapy due to reduced ejection fraction. He denied any history of alcohol, tobacco or drug use. Suspect that patient may have tachycardia induced cardiomyopathy as he has never felt palpitations with his tachycardic episodes. Suspect that this has been probably an ongoing issue that had been left unnoticed. Will follow-up with cardiology recommendations. Continue to titrate O2 as tolerated.
--- NOTE | 2025-09-10 08:49 | PC.SS ---
Follow up note: On IV meds. On IV diuresis. Pt will return home upon dc.
--- NOTE | 2025-09-10 12:12 | PD.RESPRO ---
Documentation for date of: 09/10/25 Subjective Subjective Interval history: A 64-year-old male with no significant past medical history presented to the ED with worsening shortness of breath over the past two weeks, along with orthopnea, dyspnea on exertion, and weight gain. He also reported bilateral lower extremity edema. The patient has a sedentary lifestyle due to a history of back injury and surgeries. He denied chest pain, nausea, or vomiting. In the ED, the patient was hypoxic, with labs showing mildly elevated troponin and elevated BNP. He developed atrial fibrillation with a rapid ventricular response of 170. The patient was started on a diltiazem drip to control the heart rate and was admitted for acute hypoxic respiratory failure due to new-onset CHF and A-fib with RVR. Diuretics and anticoagulation were initiated, and cardiology was consulted for further management. Past medical history none Past surgical history back surgeries in 2006 Allergies tobacco Social living at home with son, denies smoking, alcohol or any other drug use. 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 No acute overnight events. Patient is saturating 96% on 3 liters, oxygen demands slowly decreasing. Renal function improving, creatinine is down from 1.3-1, overall he is stating that he is feeling much better. Currently patient is on Lasix 40 mg IV twice daily, can be continued with 40 daily, close monitor electrolytes, vitals are stable, A-fib, however rate controlled. Continue with metoprolol and Eliquis. Increase metoprolol to 50 mg twice daily blood pressure is permissible and systolic blood pressure greater than 100 mmHg. Also started on digoxin 0.25 mg every 6 hours for the next 24 hours for loading digoxin and then we will start the patient on 0.25 mg once daily after that from tomorrow. Patient will need goal-directed medical therapy with Entresto and spironolactone if blood pressure is permissible. And continue close monitoring renal function. 09/10/25. Patient was seen and examined at bedside, No acute overnight events. Saturating 97%on 3 L. Rate is better controlled now on digoxin as well as metoprolol. Lasix was decreased to 40 daily, UO 1L. On metoprolol 50 BID. Completed digoxin loading and will start the patient on digoxin 0.25 mg daily along with metoprolol for rate control. Check digoxin levels after 1 week. Continue current managment. CLose monitore vitals Exam Vital Signs Temp Pulse Resp BP Pulse Ox O2 Del Method O2 Flow Rate 97.1 F 131 H 21 H 117/92 H 97 Nasal Cannula 2 09/10/25 08:00 09/10/25 08:33 09/10/25 08:33 09/10/25 08:28 09/10/25 08:33 09/10/25 08:00 09/10/25 08:33 FiO2 4 09/09/25 09:00 Narrative Exam GENERAL: no acute distress, AAO x3. Obese HEENT: Head AT/ NC. Mucous membranes moist. PERRL. NECK: Supple, no lymphadenopathy, no carotid bruits. CARDIOVASCULAR: Irregular RR. Normal S1/S2, No m/r/g. 2+ pitting edema of BL LEs, more on R side RESPIRATORY: No wheezing, rhonchi, crackles. GASTROINTESTINAL: Abdomen soft, non tender no palpable masses. Bowel sounds present in all 4 quadrants. NEUROLOGICAL: CN II-XII grossly intact. No focal deficits. Sensation intact, symmetric. PSYCHIATRIC: Awake and alert, not agitated, normal mood and affect. INTEGUMENTARY: No obvious rashes, no jaundice, normal turgor. Objective Labs 09/12/25 04:42 09/12/25 04:42 Labs: Laboratory Results - last 24 hr 09/08/25 09/10/25 09/10/25 02:20 04:31 06:50 WBC 8.1 RBC 4.53 Hgb 13.0 L Hct 41.3 MCV 91 MCH 28.7 MCHC 31.5 RDW Std Deviation 51.3 H Plt Count 186 Neut % (Auto) 63 Lymph % (Auto) 23 [place] % (Auto) 10 Eos % (Auto) 2 Baso % (Auto) 2 Neut # (Auto) 5.1 Lymph # (Auto) 1.9 [place] # (Auto) 0.8 Eos # (Auto) 0.2 Baso # (Auto) 0.2 Immature Gran # (Auto) 0.02 H Absolute Nucleated RBC 0.00 Immature Gran % 0 Nucleated RBC % 0 Sodium 143 Potassium 4.4 D Chloride 105 Carbon Dioxide 29.3 Anion Gap 9 BUN 18 Creatinine 1.1 Estim Creat Clear Calc Not Performed. eGFR > 60 BUN/Creatinine Ratio 16 Glucose 106 Calculated Osmolality 286 Calcium 9.6 Corrected Calcium 9.6 Phosphorus 3.3 Magnesium 2.5 Total Bilirubin 1.0 AST 23 ALT 58 H Alkaline Phosphatase 73 Total Protein 6.6 Albumin 4.2 Globulin 2.4 Albumin/Globulin Ratio 1.8 Coccidioides IgM Ab Negative Quality Measures Quality Measures VTE prophylaxis Assessment & Plan Assessment Current Active Medications: Generic Name Dose Route Start Last Admin Trade Name Freq PRN Reason Stop Dose Admin Acetaminophen 650 mg 09/07/25 22:45 Acetaminophen 325 Mg Tablet PO 10/07/25 22:44 Q6H PRN Fever >100.4 or pain 1-3 Hydrocodone Bitart/Acetaminophen 1 tab 09/07/25 22:45 Hydrocodone/Apap 5/325 Tablet PO 09/12/25 22:44 Q4HR PRN PAIN SCALE 4-6 (Moderate Apixaban 5 mg 09/08/25 09:00 09/10/25 08:25 Apixaban 2.5 Mg Tablet PO 10/08/25 08:59 5 mg BID KATINA Administration Digoxin 0.25 mg 09/09/25 19:10 09/10/25 06:12 Digoxin 0.125 Mg Tablet PO 09/10/25 14:01 0.25 mg Q8HR KATINA Administration Famotidine 20 mg 09/08/25 09:00 09/10/25 08:27 Famotidine Inj 10 Mg/Ml Vial 2 Ml IVP 10/08/25 08:59 20 mg Q12HR KATINA Administration Ferrous Sulfate 325 mg 09/09/25 11:15 09/09/25 11:25 Ferrous Sulf 325 Mg Tablet PO 10/09/25 11:14 325 mg QOD KATINA Administration Furosemide 40 mg 09/10/25 09:00 09/10/25 08:28 Furosemide Inj 10 Mg/Ml 4ml Vial IVP 10/10/25 08:59 40 mg QDAY KATINA Administration Metoprolol Succinate 50 mg 09/09/25 21:00 09/10/25 08:26 Metoprolol Succinate Xl 25 Mg Tabcr PO 10/09/25 20:59 50 mg BID KATINA Administration Ondansetron HCl 4 mg 09/07/25 23:26 09/10/25 05:43 Ondansetron Inj 2 Mg/Ml Inj 2 Ml IVP 10/07/25 23:25 4 mg Q6HR PRN Administration NAUSEA OR VOMITING Protocol Plan Patient is a 64-year-old male without past medical history, never followed Dr. In the past was admitted for acute hypoxic respiratory failure secondary due to new onset CHF A-fib with RVR. #Acute hypoxic respiratory failure secondary due to new onset CHF-improving #Acute decompensated severe systolic congestive heart failure, NYHA class III - HFrEF 20-25% #NSTEMI type 2 demand ischemia Patient presented with worsening shortness of breath, orthopnea, dyspnea on exertion with bilateral lower extremity edema Elevated BNP level and hypoxia suggest volume overload and acute heart failure. CTA (-) for PE Echo 09/08/2025: Summary 1. Left ventricle size is mildly enlarged and systolic function is severely reduced. Estimated ejection fraction is 20-25%. There is grade II diastolic dysfunction. Cannot rule out Small LV thrombus. Will need echo contrast study which is not available here. 2. Right ventricle chamber size is normal and systolic function is normal. Estimated RVSP is 37 mmHg. mildly elevated RVSP. 3. There is moderate aortic valve sclerosis with no stenosis and mild regurgitation. 4. There is mild to moderate mitral and tricuspid valve regurgitation. 5. The left atrium is severely enlarged. The right atrium is moderately enlarged. 6. Dilated IVC with estimated RA pressure 15 mmHg. 7. There is trivial pericardial effusion with no tamponade. 09/09/2025: Oxygen demand slowly decreasing, currently is on 3 L saturating 96% Patient net 3 L on Lasix 40 mg twice daily, will recommend to switch to 40 daily Renal panel improving, patient is having adequate urine output with improvement of creatinine from 1.3-1 Electrolytes replaced as needed Conntinue with metoprolol and Eliquis. Increase metoprolol to 50 mg twice daily blood pressure is permissible and systolic blood pressure greater than 100 mmHg. Also started on digoxin 0.25 mg every 8 hours for the next 24 hours for loading digoxin and then we will start the patient on 0.25 mg once daily after that from Tomorrow. Patient will need goal-directed medical therapy with Entresto and spironolactone if blood pressure is permissible. And continue close monitoring renal function. Recommendations Continue IV 40 daily diuretics to manage fluid overload Strict JP's Fluid restriction Close monitor urine output Keep electrolytes within normal limit, potassium above 4, magnesium above 2 Support with oxygen For A-fib Continue with metoprolol 50 mL once daily for now and if needed we will continue to uptitrate based on the blood pressure. [id number] score is 4, recommended to continue with Eliquis twice daily Once patient vitals are more stable and fluid status is managed, patient will need to be on GDMT for heart failure to optimize long-term management. For now continue with metoprolol, Started on digoxin 0.25 mg every 6 hours for the next 24 hours for loading digoxin and then we will start the patient on 0.25 mg once daily after that. Check digoxin levels after 1 week On the day before discharge, after active diuresis is stopped and fluid status is appropriately managed, with stable vitals, Entresto can be initiated. Spironolactone will also need to be started. If GDMT is introduced with active diuresis, there is an increased risk of severe hypotension. Follow-up: outpatient cardiology follow-up to discuss long-term management of heart failure, optimization of medical therapy, and assessment of any potential need for device therapy (e.g., ICD or CATCHER PLUG if indicated). #A-fib with RVR new onset Patient was placed on diltiazem drip, however given the low EF, patient was transition to p.o. metoprolol, Rate is better controlled on metoprolol XL as well as digoxin as noted above. Continue Eliquis 5 mg twice daily for anticoagulation and status post questions elevated #?LV thrombus seen on ECHO, will need echo contrast study outpatient for now continue Elquis rather than warfarin which is recommended to ensure patient compliance as he did not follow-up with doctors regularly before Patient care was discussed with attending physician Dr. Jac Guerrero MD PGY-3 I have carefully reviewed this document. Due to imperfections in the voice software, there could be grammatical errors including phonetic/typographic errors. This in no way compromises the medical care the patient is receiving Attending Provider Attestation/Addendum I have personally seen and examined the patient separately on the above date of service and discussed the plan of care with the resident. I reviewed the resident Dr. Sofia Sarabia consultation progress note and agree with the resident findings and plan in the note above and have also edited the documentation to reflect my findings and plan. Marcus Nathan M.D. Interventional Cardiology
--- NOTE | 2025-09-10 12:30 | CHAP ---
Patient was visited by the Spiritual Care Volunteer who prayed for them. (Volunteer was in the hospital from 09:15-12:30)
[2025-09-10 12:39] LABS: Cocci Serology, IgG Negative (Negative)
[2025-09-11] VITALS (12 sets, daily range): BP systolic 108–141; BP diastolic 67–95; PULSE 72–119; RESP 14–22; TEMP 36.1–36.3; O2SAT 93–99
[2025-09-11 06:06] LABS: Basophils # (Auto) 0.1 Thou/mm3 (0.0-0.2); Basophils % (Auto) 2 % (0-2.5); Eosinophils # (Auto) 0.2 Thou/mm3 (0.0-0.5); Eosinophils % (Auto) 3 % (0-10); Hematocrit 43.6 % (41.0-53.0); Hemoglobin 13.5 g/dL (13.5-16.0); Immature Granulocytes Auto 0.02 Thou/mm3 (0.00-0.00); Lymphocytes # (Auto) 1.6 Thou/mm3 (1.0-4.8); Lymphocytes % (Auto) 26 % (10-50); Mean Corpuscular HGB Conc 31.0 g/dl (31.0-37.0); Mean Corpuscular Hemoglobin 28.7 pg (25.0-35.0); Mean Corpuscular Volume 93 fL (80-100); Monocytes # (Auto) 0.6 Thou/mm3 (0.0-0.8); Monocytes % (Auto) 9 % (0-12); Neutrophils # (Auto) 3.8 Thou/mm3 (1.8-7.7); Neutrophils % (Auto) 61 % (37-80); Nucleated Red Blood Cell # 0.00 Thou/mm3 (0.00-0.00); Nucleated Red Blood Cell % 0 /100 WBC (0); Platelet Count 170 Thou/mm3 (140-440); RDW Standard Deviation 51.6 fL (35.1-43.9); Red Blood Count 4.71 Miln/mm3 (4.50-5.90); White Blood Count 6.3 Thou/mm3 (3.8-10.6)
[2025-09-11 06:35] LABS: Alanine Aminotransferase 48 U/L (10-49); Albumin, Serum 4.0 gm/dL (3.4-4.8); Albumin/Globulin Ratio 2.0 (1.2-2.2); Alkaline Phosphatase 69 U/L (46-116); Anion Gap 9 (7-16); Aspartate Amino Transferase 27 U/L (0-34); BUN/Creatinine Ratio 16 Ratio (12-20); Bilirubin,Total 1.1 mg/dL (0.3-1.2); Blood Urea Nitrogen 18 mg/dL (9-23); Calcium 9.1 mg/dL (8.3-10.6); Calcium (Corrected) 9.1 mg/dL (8.5-10.1); Carbon Dioxide 30.0 mMol/L (20.0-31.0); Chloride 105 mMol/L (98-107); Creatinine (Component) 1.1 mg/dL (0.6-1.3); Globulin 2.0 gm/dL (2.3-3.5); Glucose 88 mg/dL (74-106); Magnesium 2.2 mg/dL (1.6-2.6); Osmolality,Calculated 287 (275-295); Phosphorous 3.7 mg/dL (2.4-5.1); Potassium 4.4 mMol/L (3.4-5.1); Sodium 144 mMol/L (136-145); Total Protein 6.0 gm/dL (5.7-8.2); eGFR > 60 See Note
[2025-09-11] MEDS: FERROUS SULF 325 MG TABLET PO (08:41)
[2025-09-11] MEDS: DIGOXIN 0.125 MG TABLET 0.25 MG PO (08:41)
[2025-09-11] MEDS: APIXABAN 2.5 MG TABLET 5 MG PO ×2 (08:41→20:40)
[2025-09-11] MEDS: METOPROLOL SUCCINATE XL 25 MG TABCR 50 MG PO ×3 (08:41→23:26)
[2025-09-11] MEDS: FAMOTIDINE INJ 10 MG/ML VIAL 2 ML 20 MG IVP ×2 (08:42→20:40)
[2025-09-11] MEDS: FUROSEMIDE INJ 10 MG/ML 4ML VIAL 40 MG IVP (08:42)
[2025-09-11 10:08] LABS: Procalcitonin < 0.04 ng/ml (0.0-0.49)
--- NOTE | 2025-09-11 11:37 | PD.RESPRO ---
Documentation for date of: 09/11/25 Subjective Subjective Interval history: A 64-year-old male with no significant past medical history presented to the ED with worsening shortness of breath over the past two weeks, along with orthopnea, dyspnea on exertion, and weight gain. He also reported bilateral lower extremity edema. The patient has a sedentary lifestyle due to a history of back injury and surgeries. He denied chest pain, nausea, or vomiting. In the ED, the patient was hypoxic, with labs showing mildly elevated troponin and elevated BNP. He developed atrial fibrillation with a rapid ventricular response of 170. The patient was started on a diltiazem drip to control the heart rate and was admitted for acute hypoxic respiratory failure due to new-onset CHF and A-fib with RVR. Diuretics and anticoagulation were initiated, and cardiology was consulted for further management. Past medical history none Past surgical history back surgeries in 2006 Allergies tobacco Social living at home with son, denies smoking, alcohol or any other drug use. 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 No acute overnight events. Patient is saturating 96% on 3 liters, oxygen demands slowly decreasing. Renal function improving, creatinine is down from 1.3-1, overall he is stating that he is feeling much better. Currently patient is on Lasix 40 mg IV twice daily, can be continued with 40 daily, close monitor electrolytes, vitals are stable, A-fib, however rate controlled. Continue with metoprolol and Eliquis. Increase metoprolol to 50 mg twice daily blood pressure is permissible and systolic blood pressure greater than 100 mmHg. Also started on digoxin 0.25 mg every 6 hours for the next 24 hours for loading digoxin and then we will start the patient on 0.25 mg once daily after that from tomorrow. Patient will need goal-directed medical therapy with Entresto and spironolactone if blood pressure is permissible. And continue close monitoring renal function. 09/10/25. Patient was seen and examined at bedside, No acute overnight events. Saturating 97%on 3 L. Rate is better controlled now on digoxin as well as metoprolol. Lasix was decreased to 40 daily, UO 1L. On metoprolol 50 BID. Completed digoxin loading and will start the patient on digoxin 0.25 mg daily along with metoprolol for rate control. Check digoxin levels after 1 week. Continue current managment. CLose monitore vitals 09/11/2025:patient was seen and examined at bedside. Overnight patient had nonsustained V. tach about 20 seconds which was self-limited. Continue on telemetry, close monitor vitals, patient continue to be on metoprolol and digoxin, tolerates well for now, if patient continue to having nonsustained V. tach we will switch from digoxin to amiodarone. Will give additional dose of metoprolol XL 50 mg x 1 this evening if BP stable apart from metoprolol XL 50 twice daily. Keep electrolytes within normal limits. Patient still on IV diuresis, continue for now, from tomorrow if patient fluid status is stable can be transition to p.o. Lasix. Exam Vital Signs Temp Pulse Resp BP Pulse Ox O2 Del Method O2 Flow Rate 97.3 F 79 14 128/78 99 Nasal Cannula 2 09/11/25 08:00 09/11/25 08:42 09/11/25 08:00 09/11/25 08:42 09/11/25 08:00 09/11/25 08:00 09/11/25 08:00 FiO2 4 09/10/25 20:00 Narrative Exam GENERAL: no acute distress, AAO x3. Obese HEENT: Head AT/ NC. Mucous membranes moist. PERRL. NECK: Supple, no lymphadenopathy, no carotid bruits. CARDIOVASCULAR: Irregular RR. Normal S1/S2, No m/r/g. 1+ pitting edema of BL LEs, more on R side RESPIRATORY: No wheezing, rhonchi, crackles. GASTROINTESTINAL: Abdomen soft, non tender no palpable masses. Bowel sounds present in all 4 quadrants. NEUROLOGICAL: CN II-XII grossly intact. No focal deficits. Sensation intact, symmetric. PSYCHIATRIC: Awake and alert, not agitated, normal mood and affect. INTEGUMENTARY: No obvious rashes, no jaundice, normal turgor. Objective Labs 09/12/25 04:42 09/12/25 04:42 Labs: Laboratory Results - last 24 hr 09/08/25 09/11/25 02:20 05:15 WBC 6.3 RBC 4.71 Hgb 13.5 Hct 43.6 MCV 93 MCH 28.7 MCHC 31.0 RDW Std Deviation 51.6 H Plt Count 170 Neut % (Auto) 61 Lymph % (Auto) 26 [place] % (Auto) 9 Eos % (Auto) 3 Baso % (Auto) 2 Neut # (Auto) 3.8 Lymph # (Auto) 1.6 [place] # (Auto) 0.6 Eos # (Auto) 0.2 Baso # (Auto) 0.1 Immature Gran # (Auto) 0.02 H Absolute Nucleated RBC 0.00 Immature Gran % 0 Nucleated RBC % 0 Sodium 144 Potassium 4.4 Chloride 105 Carbon Dioxide 30.0 Anion Gap 9 BUN 18 Creatinine 1.1 Estim Creat Clear Calc Not Performed. eGFR > 60 BUN/Creatinine Ratio 16 Glucose 88 Calculated Osmolality 287 Calcium 9.1 Corrected Calcium 9.1 Phosphorus 3.7 Magnesium 2.2 Total Bilirubin 1.1 AST 27 ALT 48 Alkaline Phosphatase 69 Total Protein 6.0 Albumin 4.0 Globulin 2.0 L Albumin/Globulin Ratio 2.0 Procalcitonin < 0.04 Coccidioides IgG Ab Negative Quality Measures Quality Measures VTE prophylaxis Assessment & Plan Assessment Current Active Medications: Generic Name Dose Route Start Last Admin Trade Name Freq PRN Reason Stop Dose Admin Acetaminophen 650 mg 09/07/25 22:45 Acetaminophen 325 Mg Tablet PO 10/07/25 22:44 Q6H PRN Fever >100.4 or pain 1-3 Hydrocodone Bitart/Acetaminophen 1 tab 09/07/25 22:45 Hydrocodone/Apap 5/325 Tablet PO 09/12/25 22:44 Q4HR PRN PAIN SCALE 4-6 (Moderate Apixaban 5 mg 09/08/25 09:00 09/11/25 08:41 Apixaban 2.5 Mg Tablet PO 10/08/25 08:59 5 mg BID KATINA Administration Digoxin 0.25 mg 09/11/25 09:00 09/11/25 08:41 Digoxin 0.125 Mg Tablet PO 10/11/25 08:59 0.25 mg QDAY KATINA Administration Famotidine 20 mg 09/08/25 09:00 09/11/25 08:42 Famotidine Inj 10 Mg/Ml Vial 2 Ml IVP 10/08/25 08:59 20 mg Q12HR KATINA Administration Ferrous Sulfate 325 mg 09/09/25 11:15 09/11/25 08:41 Ferrous Sulf 325 Mg Tablet PO 10/09/25 11:14 325 mg QOD KATINA Administration Furosemide 40 mg 09/10/25 09:00 09/11/25 08:42 Furosemide Inj 10 Mg/Ml 4ml Vial IVP 10/10/25 08:59 40 mg QDAY KATINA Administration Metoprolol Succinate 50 mg 09/09/25 21:00 09/11/25 08:41 Metoprolol Succinate Xl 25 Mg Tabcr PO 10/09/25 20:59 50 mg BID KATINA Administration Ondansetron HCl 4 mg 09/07/25 23:26 09/10/25 05:43 Ondansetron Inj 2 Mg/Ml Inj 2 Ml IVP 10/07/25 23:25 4 mg Q6HR PRN Administration NAUSEA OR VOMITING Protocol Plan Patient is a 64-year-old male without past medical history, never followed Dr. In the past was admitted for acute hypoxic respiratory failure secondary due to new onset CHF A-fib with RVR. #Acute hypoxic respiratory failure secondary due to new onset CHF-improving #Acute decompensated severe systolic congestive heart failure, NYHA class III - HFrEF 20-25% #NSTEMI type 2 demand ischemia Patient presented with worsening shortness of breath, orthopnea, dyspnea on exertion with bilateral lower extremity edema Elevated BNP level and hypoxia suggest volume overload and acute heart failure. CTA (-) for PE Echo 09/08/2025: Summary 1. Left ventricle size is mildly enlarged and systolic function is severely reduced. Estimated ejection fraction is 20-25%. There is grade II diastolic dysfunction. Cannot rule out Small LV thrombus. Will need echo contrast study which is not available here. 2. Right ventricle chamber size is normal and systolic function is normal. Estimated RVSP is 37 mmHg. mildly elevated RVSP. 3. There is moderate aortic valve sclerosis with no stenosis and mild regurgitation. 4. There is mild to moderate mitral and tricuspid valve regurgitation. 5. The left atrium is severely enlarged. The right atrium is moderately enlarged. 6. Dilated IVC with estimated RA pressure 15 mmHg. 7. There is trivial pericardial effusion with no tamponade. 09/11/2025: Overnight patient had nonsustained V. tach about 20 seconds which was self-limited. Continue on telemetry, close monitor vitals, patient continue to be on metoprolol and digoxin, tolerates well for now, if patient continue to having nonsustained V. tach we will switch from digoxin to amiodarone. Will give additional dose of metoprolol XL 50 mg x 1 this evening if BP stable apart from the metoprolol XL 50 twice daily. Keep electrolytes within normal limits. Patient still on IV diuresis, continue for now, from tomorrow if patient fluid status is stable can be transition to p.o. Lasix. Recommendations Continue daily Lasix 40 IV, once volume status is stable, can transition to p.o.. Fluid restriction Close monitor urine output Keep electrolytes within normal limit, potassium above 4, magnesium above 2 Support with oxygen For A-fib Continue with metoprolol 50 mL once daily for now and if needed we will continue to uptitrate based on the blood pressure. [id number] score is 4, recommended to continue with Eliquis twice daily Once patient vitals are more stable and fluid status is managed, patient will need to be on GDMT for heart failure to optimize long-term management. For now continue with metoprolol, COntinue with metoprolol 50 twice daily, digoxin 0.25 daily and Eliquis. If rate is not well-controlled with current medication can increase metoprolol if vitals are stable. Follow-up with Check digoxin levels after 1 week On the day before discharge, after active diuresis is stopped and fluid status is appropriately managed, with stable vitals, Entresto can be initiated. Spironolactone will also need to be started. If GDMT is introduced with active diuresis, there is an increased risk of severe hypotension. Follow-up: outpatient cardiology follow-up to discuss long-term management of heart failure, optimization of medical therapy, and assessment of any potential need for device therapy (e.g., ICD or HEADING MAKER if indicated). Patient will need ambulation to evaluate oxygen requirement at home. #Nonsustained V. tach~20 seconds Patient vitals currently are stable Continue monitor on telemetry If patient continue to have a episode of nonsustained V. tach, we will switch from digoxin to amiodarone For now continue the same management, and close monitor vitals #A-fib with RVR new onset Patient was placed on diltiazem drip, however given the low EF, patient was transition to p.o. metoprolol, Rate is better controlled on metoprolol XL as well as digoxin as noted above. Continue Eliquis 5 mg twice daily for anticoagulation and status post questions elevated #?LV thrombus seen on ECHO, will need echo contrast study outpatient for now continue Elquis rather than warfarin which is recommended to ensure patient compliance as he did not follow-up with doctors regularly before Patient care was discussed with attending physician Dr. Jac Guerrero MD PGY-3 I have carefully reviewed this document. Due to imperfections in the voice software, there could be grammatical errors including phonetic/typographic errors. This in no way compromises the medical care the patient is receiving Attending Provider Attestation/Addendum I have personally seen and examined the patient separately on the above date of service and discussed the plan of care with the resident. I reviewed the resident Dr. Sofia Sarabia consultation progress note and agree with the resident findings and plan in the note above and have also edited the documentation to reflect my findings and plan. Marcus Nathan M.D. Interventional Cardiology
[2025-09-11] MEDS: Magnesium Sulfate 2 GM Ivpb 2 GM/50 ML BAG IV ×2 (12:21→23:27)
--- NOTE | 2025-09-11 13:10 | PD.RESPRO ---
Documentation for date of: 09/11/25 Subjective Subjective Interval history: Overnight patient had a run of nonsustained ventricular tachycardia for about 20 seconds, asymptomatic. Patient is net hospitalization -2 L, will continue with IV diuresis Continue with digoxin 0.25 mg daily, metoprolol succinate 50 mg twice daily and Eliquis 5 mg p.o. twice daily for atrial fibrillation. Continue ferrous sulfate Will monitor patient overnight on telemetry, was given 2 g of magnesium. Exam Vital Signs Temp Pulse Resp BP Pulse Ox O2 Del Method O2 Flow Rate 97.3 F 77 14 128/78 99 Nasal Cannula 2 09/11/25 08:00 09/11/25 12:00 09/11/25 08:00 09/11/25 08:42 09/11/25 08:00 09/11/25 08:00 09/11/25 08:00 FiO2 4 09/10/25 20:00 Narrative Exam GENERAL: no acute distress, AAO x3. Obese HEENT: Head AT/ NC. Mucous membranes moist. PERRL. NECK: Supple, no lymphadenopathy, no carotid bruits. CARDIOVASCULAR: Irregular RR. Normal S1/S2, No m/r/g. 1+ pitting edema of BL LEs, more on R side RESPIRATORY: No wheezing, rhonchi, crackles. GASTROINTESTINAL: Abdomen soft, non tender no palpable masses. Bowel sounds present in all 4 quadrants. NEUROLOGICAL: CN II-XII grossly intact. No focal deficits. Sensation intact, symmetric. PSYCHIATRIC: Awake and alert, not agitated, normal mood and affect. INTEGUMENTARY: No obvious rashes, no jaundice, normal turgor. Objective Labs 09/11/25 05:15 09/11/25 05:15 Labs: Laboratory Results - last 24 hr 09/11/25 05:15 WBC 6.3 RBC 4.71 Hgb 13.5 Hct 43.6 MCV 93 MCH 28.7 MCHC 31.0 RDW Std Deviation 51.6 H Plt Count 170 Neut % (Auto) 61 Lymph % (Auto) 26 [place] % (Auto) 9 Eos % (Auto) 3 Baso % (Auto) 2 Neut # (Auto) 3.8 Lymph # (Auto) 1.6 [place] # (Auto) 0.6 Eos # (Auto) 0.2 Baso # (Auto) 0.1 Immature Gran # (Auto) 0.02 H Absolute Nucleated RBC 0.00 Immature Gran % 0 Nucleated RBC % 0 Sodium 144 Potassium 4.4 Chloride 105 Carbon Dioxide 30.0 Anion Gap 9 BUN 18 Creatinine 1.1 Estim Creat Clear Calc Not Performed. eGFR > 60 BUN/Creatinine Ratio 16 Glucose 88 Calculated Osmolality 287 Calcium 9.1 Corrected Calcium 9.1 Phosphorus 3.7 Magnesium 2.2 Total Bilirubin 1.1 AST 27 ALT 48 Alkaline Phosphatase 69 Total Protein 6.0 Albumin 4.0 Globulin 2.0 L Albumin/Globulin Ratio 2.0 Procalcitonin < 0.04 Quality Measures Quality Measures VTE prophylaxis Assessment & Plan Assessment Current Active Medications: Generic Name Dose Route Start Last Admin Trade Name Freq PRN Reason Stop Dose Admin Acetaminophen 650 mg 09/07/25 22:45 Acetaminophen 325 Mg Tablet PO 10/07/25 22:44 Q6H PRN Fever >100.4 or pain 1-3 Hydrocodone Bitart/Acetaminophen 1 tab 09/07/25 22:45 Hydrocodone/Apap 5/325 Tablet PO 09/12/25 22:44 Q4HR PRN PAIN SCALE 4-6 (Moderate Apixaban 5 mg 09/08/25 09:00 09/11/25 08:41 Apixaban 2.5 Mg Tablet PO 10/08/25 08:59 5 mg BID KATINA Administration Digoxin 0.25 mg 09/11/25 09:00 09/11/25 08:41 Digoxin 0.125 Mg Tablet PO 10/11/25 08:59 0.25 mg QDAY KATINA Administration Famotidine 20 mg 09/08/25 09:00 09/11/25 08:42 Famotidine Inj 10 Mg/Ml Vial 2 Ml IVP 10/08/25 08:59 20 mg Q12HR KATINA Administration Ferrous Sulfate 325 mg 09/09/25 11:15 09/11/25 08:41 Ferrous Sulf 325 Mg Tablet PO 10/09/25 11:14 325 mg QOD KATINA Administration Furosemide 40 mg 09/10/25 09:00 09/11/25 08:42 Furosemide Inj 10 Mg/Ml 4ml Vial IVP 10/10/25 08:59 40 mg QDAY KATINA Administration Magnesium Sulfate 2 gm in 50 mls @ 25 mls/hr 09/11/25 11:51 09/11/25 12:21 Magnesium Sulfate Ivpb IV 09/11/25 13:50 25 mls/hr X1 ONE Administration Metoprolol Succinate 50 mg 09/09/25 21:00 09/11/25 08:41 Metoprolol Succinate Xl 25 Mg Tabcr PO 10/09/25 20:59 50 mg BID KATINA Administration Ondansetron HCl 4 mg 09/07/25 23:26 09/10/25 05:43 Ondansetron Inj 2 Mg/Ml Inj 2 Ml IVP 10/07/25 23:25 4 mg Q6HR PRN Administration NAUSEA OR VOMITING Protocol Plan 64yo obese male w/ pmhx of chronic back pain s/p cervical fusion (2006) presents to ED with progressively worsening shortness of breath over the last 1-2 weeks. Admitted for AHRF with new onset afib w/ RVR. Initial weight 130.266kg #AHRF, resolved #New onset A fib with RVR #New onset CHF #NSTEMI type II #LV thrombus #Nonsustained ventricular tachycardia DDx: HTN, CINDY, OHS Most likely HTN that patient has not been managing, very poor doctor follow up after 2011, OHS to be considered, however patient has lost over 100lbs, and CINDY is less likely because he does not have headaches upon waking and generally feels well rested, neck circumference also appears to be under 40cm; however STOP BANG score of 3. Patient presented respiratory distress and SOB the last 2 weeks. In ED oxygen saturation went down to 92% corrected with NC. He has crackles in the lungs and +2 bilateral pretibial edema. EKG shows afib with RVR. CXR revealed mild heart failure. He was given 3x dilt 10mg Inj and started on dilt drip 5-15mg/h and lasix 20mg and 40mg IV in ED. His HR lowered to 102 and BP 125/82. His orthopnea has lessened and he has not had any chest pain nor noticed palpitations. Troponins: 0.107 -->0.0100, BNP 613. 09/10: Mechanical Technologist, Dr. Nathan, consulted, appreciate recs. Currently on metoprolol succinate 50mg PO QD, Lasix 40mg IV QD, digoxin 0.25mg QD. Heart rate still in the 110s. Asymptomatic at this time. Plan: -Close monitor of heart rate -Strict I/Os -Fluid restriction 1.5L -Head of bed elevation -Continue Eliquis 5mg BID -Cards, Dr. Nathan, consulted, recs appreciated -Continue Metoprolol succinate 50mg PO BID -Continue to Lasix 40mg QD IV -Continue digoxin 0.25mg Qday - Patient maintains SpO2 greater than 92 on walk test #Transaminitis #Hyperbilirubinemia #Liver cirrhosis, MASLD Patient reports minimal PO intake the last week due to SOB, elevated labs most likely due to hepatic congestion in setting of CHF. No abdominal TTP or murphys sign on physical exam, no jaundice, no scleral icterus, no mucousal darkening. T Bili 1.5(H) AST 83 ALT 109. Liver US showed irregular liver contour, thickened gallbladder wall up to 8 mm, cirrhosis versus primary hepatocellular disease. Transaminitis likely secondary to new onset CHF 09/10: LFT overall improving Plan: -Optimize HF management as above -Follow up outpatient for possible liver cirrhosis workup #Pre-diabetes No history of diabetes, family history of strokes and heart disease. Patient not seen by doctor, is morbidly obese, recently lost 100lbs over the course of a year. Patient has limited mobility due to back pain. Cannot walk more than a mile due to pain. Is still morbidy obese since losing the weight. Blood glucose on admission is 138mg/dl. A1c 5.6% Plan: -Lifestyle modification -Cardiac and low carb diet Health Maintenance: Code status: Full DVT prophylaxis: Eliquis 5mg BID GI prophylaxis: Famotidine Diet: Cardiac Kiran: Yes Lines: PIV Supplemental O2: NC and oxy mask prn Disposition: Tele Case discussed with Attending Physician Dr. Shantelle Gaston MD Internal Medicine PGY-2 Disclaimer: This note was dictated by speech recognition. Minor errors in financial assistance specialist may be present due to voice recognition software. Attending Provider Attestation/Addendum Shantelle Garcia DO, attest that I was physically present for the [place] portions of the service and evaluated the patient with the resident and I reviewed and discussed the case with the resident and agree with the resident's findings and plans of care as documented above Patient seen and evaluated this AM. He states he is feeling well. Patient has been weaned to room air and able to ambulate without HOBSON. HR has been in the 90s. He continues to have trace b/l le edema. However, he had 20 seconds of nonsustained vtach overnight. Will continue to monitor on telemetry. He remains on metoprolol 50mg PO BID and digoxin 0.25mg. Continue with eliquis. Will f/u with cardiology recommendations.
[2025-09-12] VITALS (11 sets, daily range): BP systolic 111–135; BP diastolic 78–94; PULSE 55–130; RESP 12–20; TEMP 36–36.6; O2SAT 92–100
[2025-09-12 05:46] LABS: Basophils # (Auto) 0.1 Thou/mm3 (0.0-0.2); Basophils % (Auto) 2 % (0-2.5); Eosinophils # (Auto) 0.2 Thou/mm3 (0.0-0.5); Eosinophils % (Auto) 3 % (0-10); Hematocrit 42.0 % (41.0-53.0); Hemoglobin 13.1 g/dL (13.5-16.0); Immature Granulocytes Auto 0.02 Thou/mm3 (0.00-0.00); Lymphocytes # (Auto) 1.5 Thou/mm3 (1.0-4.8); Lymphocytes % (Auto) 27 % (10-50); Mean Corpuscular HGB Conc 31.2 g/dl (31.0-37.0); Mean Corpuscular Hemoglobin 28.9 pg (25.0-35.0); Mean Corpuscular Volume 93 fL (80-100); Monocytes # (Auto) 0.6 Thou/mm3 (0.0-0.8); Monocytes % (Auto) 11 % (0-12); Neutrophils # (Auto) 3.2 Thou/mm3 (1.8-7.7); Neutrophils % (Auto) 57 % (37-80); Nucleated Red Blood Cell # 0.00 Thou/mm3 (0.00-0.00); Nucleated Red Blood Cell % 0 /100 WBC (0); Platelet Count 156 Thou/mm3 (140-440); RDW Standard Deviation 50.8 fL (35.1-43.9); Red Blood Count 4.53 Miln/mm3 (4.50-5.90); White Blood Count 5.6 Thou/mm3 (3.8-10.6)
[2025-09-12 06:10] LABS: Alanine Aminotransferase 45 U/L (10-49); Albumin, Serum 3.7 gm/dL (3.4-4.8); Albumin/Globulin Ratio 1.9 (1.2-2.2); Alkaline Phosphatase 61 U/L (46-116); Anion Gap 7 (7-16); Aspartate Amino Transferase 27 U/L (0-34); BUN/Creatinine Ratio 15 Ratio (12-20); Bilirubin,Total 1.1 mg/dL (0.3-1.2); Blood Urea Nitrogen 18 mg/dL (9-23); Calcium 9.2 mg/dL (8.3-10.6); Calcium (Corrected) 9.4 mg/dL (8.5-10.1); Carbon Dioxide 34.6 mMol/L (20.0-31.0); Chloride 103 mMol/L (98-107); Creatinine (Component) 1.2 mg/dL (0.6-1.3); Globulin 1.9 gm/dL (2.3-3.5); Glucose 85 mg/dL (74-106); Magnesium 2.5 mg/dL (1.6-2.6); Osmolality,Calculated 289 (275-295); Phosphorous 4.1 mg/dL (2.4-5.1); Potassium 4.5 mMol/L (3.4-5.1); Sodium 145 mMol/L (136-145); Total Protein 5.6 gm/dL (5.7-8.2); eGFR > 60 See Note
[2025-09-12] MEDS: DIGOXIN 0.125 MG TABLET 0.25 MG PO (08:22)
[2025-09-12] MEDS: APIXABAN 2.5 MG TABLET 5 MG PO ×2 (08:22→20:47)
[2025-09-12] MEDS: FAMOTIDINE INJ 10 MG/ML VIAL 2 ML 20 MG IVP ×2 (08:24→20:48)
[2025-09-12] MEDS: FUROSEMIDE INJ 10 MG/ML 4ML VIAL 40 MG IVP (08:25)
[2025-09-12] MEDS: METOPROLOL SUCCINATE XL 25 MG TABCR 50 MG PO ×2 (09:14→20:47)
--- NOTE | 2025-09-12 11:43 | PD.RESPRO ---
Documentation for date of: 09/12/25 Subjective Subjective Interval history: A 64-year-old male with no significant past medical history presented to the ED with worsening shortness of breath over the past two weeks, along with orthopnea, dyspnea on exertion, and weight gain. He also reported bilateral lower extremity edema. The patient has a sedentary lifestyle due to a history of back injury and surgeries. He denied chest pain, nausea, or vomiting. In the ED, the patient was hypoxic, with labs showing mildly elevated troponin and elevated BNP. He developed atrial fibrillation with a rapid ventricular response of 170. The patient was started on a diltiazem drip to control the heart rate and was admitted for acute hypoxic respiratory failure due to new-onset CHF and A-fib with RVR. Diuretics and anticoagulation were initiated, and cardiology was consulted for further management. Past medical history none Past surgical history back surgeries in 2006 Allergies tobacco Social living at home with son, denies smoking, alcohol or any other drug use. 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 No acute overnight events. Patient is saturating 96% on 3 liters, oxygen demands slowly decreasing. Renal function improving, creatinine is down from 1.3-1, overall he is stating that he is feeling much better. Currently patient is on Lasix 40 mg IV twice daily, can be continued with 40 daily, close monitor electrolytes, vitals are stable, A-fib, however rate controlled. Continue with metoprolol and Eliquis. Increase metoprolol to 50 mg twice daily blood pressure is permissible and systolic blood pressure greater than 100 mmHg. Also started on digoxin 0.25 mg every 6 hours for the next 24 hours for loading digoxin and then we will start the patient on 0.25 mg once daily after that from tomorrow. Patient will need goal-directed medical therapy with Entresto and spironolactone if blood pressure is permissible. And continue close monitoring renal function. 09/10/25. Patient was seen and examined at bedside, No acute overnight events. Saturating 97%on 3 L. Rate is better controlled now on digoxin as well as metoprolol. Lasix was decreased to 40 daily, UO 1L. On metoprolol 50 BID. Completed digoxin loading and will start the patient on digoxin 0.25 mg daily along with metoprolol for rate control. Check digoxin levels after 1 week. Continue current managment. CLose monitore vitals 09/11/2025:patient was seen and examined at bedside. Overnight patient had nonsustained V. tach about 20 seconds which was self-limited. Continue on telemetry, close monitor vitals, patient continue to be on metoprolol and digoxin, tolerates well for now, if patient continue to having nonsustained V. tach we will switch from digoxin to amiodarone. Will give additional dose of metoprolol XL 50 mg x 1 this evening if BP stable apart from metoprolol XL 50 twice daily. Keep electrolytes within normal limits. Patient still on IV diuresis, continue for now, from tomorrow if patient fluid status is stable can be transition to p.o. Lasix. 09/12/2025:Patient was seen at bedside . No acute overnight events. we can start on 100mg Metoprolol xl in the morning and 50mg Metoprolol in the evening for better control of his NSVT and Afib. Can continue 0.25mg of digoxin and 40mg of oral lasix.Reccomended outpatient follow up for optimization of his medications and his HFrEF after the discharge. Exam Vital Signs Temp Pulse Resp BP Pulse Ox O2 Del Method O2 Flow Rate 97.9 F 85 19 132/94 H 97 Nasal Cannula 2 09/12/25 08:00 09/12/25 09:30 09/12/25 09:30 09/12/25 09:14 09/12/25 09:30 09/12/25 08:00 09/12/25 09:30 FiO2 4 09/12/25 04:00 Objective Labs 09/13/25 05:40 09/13/25 05:40 Labs: Laboratory Results - last 24 hr 09/12/25 04:42 WBC 5.6 RBC 4.53 Hgb 13.1 L Hct 42.0 MCV 93 MCH 28.9 MCHC 31.2 RDW Std Deviation 50.8 H Plt Count 156 Neut % (Auto) 57 Lymph % (Auto) 27 [place] % (Auto) 11 Eos % (Auto) 3 Baso % (Auto) 2 Neut # (Auto) 3.2 Lymph # (Auto) 1.5 [place] # (Auto) 0.6 Eos # (Auto) 0.2 Baso # (Auto) 0.1 Immature Gran # (Auto) 0.02 H Absolute Nucleated RBC 0.00 Immature Gran % 0 Nucleated RBC % 0 Sodium 145 Potassium 4.5 Chloride 103 Carbon Dioxide 34.6 H Anion Gap 7 BUN 18 Creatinine 1.2 Estim Creat Clear Calc Not Performed. eGFR > 60 BUN/Creatinine Ratio 15 Glucose 85 Calculated Osmolality 289 Calcium 9.2 Corrected Calcium 9.4 Phosphorus 4.1 Magnesium 2.5 Total Bilirubin 1.1 AST 27 ALT 45 Alkaline Phosphatase 61 Total Protein 5.6 L Albumin 3.7 Globulin 1.9 L Albumin/Globulin Ratio 1.9 Quality Measures Quality Measures VTE prophylaxis Assessment & Plan Assessment Current Active Medications: Generic Name Dose Route Start Last Admin Trade Name Freq PRN Reason Stop Dose Admin Acetaminophen 650 mg 09/07/25 22:45 Acetaminophen 325 Mg Tablet PO 10/07/25 22:44 Q6H PRN Fever >100.4 or pain 1-3 Hydrocodone Bitart/Acetaminophen 1 tab 09/07/25 22:45 Hydrocodone/Apap 5/325 Tablet PO 09/12/25 22:44 Q4HR PRN PAIN SCALE 4-6 (Moderate Apixaban 5 mg 09/08/25 09:00 09/12/25 08:22 Apixaban 2.5 Mg Tablet PO 10/08/25 08:59 5 mg BID KATINA Administration Digoxin 0.25 mg 09/11/25 09:00 09/12/25 08:22 Digoxin 0.125 Mg Tablet PO 10/11/25 08:59 0.25 mg QDAY KATINA Administration Famotidine 20 mg 09/08/25 09:00 09/12/25 08:24 Famotidine Inj 10 Mg/Ml Vial 2 Ml IVP 10/08/25 08:59 20 mg Q12HR KATINA Administration Ferrous Sulfate 325 mg 09/09/25 11:15 09/11/25 08:41 Ferrous Sulf 325 Mg Tablet PO 10/09/25 11:14 325 mg QOD KATINA Administration Furosemide 40 mg 09/10/25 09:00 09/12/25 08:25 Furosemide Inj 10 Mg/Ml 4ml Vial IVP 10/10/25 08:59 40 mg QDAY KATINA Administration Metoprolol Succinate 50 mg 09/09/25 21:00 09/12/25 09:14 Metoprolol Succinate Xl 25 Mg Tabcr PO 12/13/25 20:59 50 mg BID KATINA Administration Ondansetron HCl 4 mg 09/07/25 23:26 09/10/25 05:43 Ondansetron Inj 2 Mg/Ml Inj 2 Ml IVP 10/07/25 23:25 4 mg Q6HR PRN Administration NAUSEA OR VOMITING Protocol Plan Patient is a 64-year-old male without past medical history, never followed Dr. In the past was admitted for acute hypoxic respiratory failure secondary due to new onset CHF A-fib with RVR. #Acute hypoxic respiratory failure secondary due to new onset CHF-improving #Acute decompensated severe systolic congestive heart failure, NYHA class III - HFrEF 20-25% #NSTEMI type 2 demand ischemia Patient presented with worsening shortness of breath, orthopnea, dyspnea on exertion with bilateral lower extremity edema Elevated BNP level and hypoxia suggest volume overload and acute heart failure. CTA (-) for PE Echo 09/08/2025: Summary 1. Left ventricle size is mildly enlarged and systolic function is severely reduced. Estimated ejection fraction is 20-25%. There is grade II diastolic dysfunction. Cannot rule out Small LV thrombus. Will need echo contrast study which is not available here. 2. Right ventricle chamber size is normal and systolic function is normal. Estimated RVSP is 37 mmHg. mildly elevated RVSP. 3. There is moderate aortic valve sclerosis with no stenosis and mild regurgitation. 4. There is mild to moderate mitral and tricuspid valve regurgitation. 5. The left atrium is severely enlarged. The right atrium is moderately enlarged. 6. Dilated IVC with estimated RA pressure 15 mmHg. 7. There is trivial pericardial effusion with no tamponade. Recommendations Continue daily Lasix 40 IV, once volume status is stable, can transition to p.o.. Fluid restriction Close monitor urine output Keep electrolytes within normal limit, potassium above 4, magnesium above 2 Support with oxygen For A-fib Continue with metoprolol 50 mL once daily for now and if needed we will continue to uptitrate based on the blood pressure. [id number] score is 4, recommended to continue with Eliquis twice daily Once patient vitals are more stable and fluid status is managed, patient will need to be on GDMT for heart failure to optimize long-term management. For now continue with metoprolol, Start Metoprolol 100mg in the morning and 50 mg in the evening , digoxin 0.25 daily and Eliquis. Can transitioned to oral Lasix 40mg. Follow-up with cardiology after discharge. Check digoxin levels after 1 week On the day before discharge, after active diuresis is stopped and fluid status is appropriately managed, with stable vitals, Entresto can be initiated. Spironolactone will also need to be started. If GDMT is introduced with active diuresis, there is an increased risk of severe hypotension. Follow-up: outpatient cardiology follow-up to discuss long-term management of heart failure, optimization of medical therapy, and assessment of any potential need for device therapy (e.g., ICD or INSIDE SALES ENGINEER if indicated). Patient will need ambulation to evaluate oxygen requirement at home. #Nonsustained V. tach~20 seconds on 09/11/2025 Patient vitals currently are stable Continue monitor on telemetry No further episodes of NSVT and recommend to continue metoprolol XL as well as digoxin. Metoprolol XL increased to 100 mg in the morning and 50 mg in the evening. For now continue the same management, and close monitor vitals #A-fib with RVR new onset Patient was placed on diltiazem drip, however given the low EF, patient was transition to p.o. metoprolol, Rate is better controlled on metoprolol XL as well as digoxin as noted above. Continue Eliquis 5 mg twice daily for anticoagulation and status post questions elevated #?LV thrombus seen on ECHO, will need echo contrast study outpatient for now continue Elliquis rather than warfarin which is recommended to ensure patient compliance as he did not follow-up with doctors regularly before Patient care was discussed with attending physician Dr. Jac Grubbs MD-PGY1 Attending Provider Attestation/Addendum I have personally seen and examined the patient separately on the above date of service and discussed the plan of care with the resident. I reviewed the resident Dr. Je Grubbs consultation progress note and agree with the resident findings and plan in the note above and have also edited the documentation to reflect my findings and plan. Marcus Nathan M.D. Interventional Cardiology
--- NOTE | 2025-09-12 13:23 | PC.NURSE ---
Room air SpO2% at rest: 95% Room air SpO2% with exercise: 73%
--- NOTE | 2025-09-12 14:14 | ESDS_ITS ---
<Statement entered by Shantelle Booker DO - 09/12/25 16:04> I, Shantelle Booker DO, attest that I was physically present for the castle portions of the service and evaluated the patient with the resident and I reviewed and discussed the case with the resident and agree with the resident's findings and plans of care as documented above <Statement entered by Manas Valera MD - 09/12/25 15:24> Patient seen and examined at bedside. I discussed and supervised with the internal combustion engineer physician who took care of this patient. I personally saw and examined the patient. I agree with most of the assessment and plan. Plan of care discussed with attending Dr. Booker. Manas Valera MD PGY-2 Planned Discharge Date 09/12/25 DS: Providers Provider Date of admission: 09/07/25 22:45 Primary care physician: Physician No Primary/Family Admitting Provider: Shawn Haque MD Attending Provider on Admission: Sheryl Steward MD Consults: 09/07/25 23:03 Consult to Cardiology Routine Comment: Consulting Provider: Marcus Nathan Attending Provider on DC: Shantelle Booker MD Discharging Provider: Yani Shukla MD DS: Diagnosis Problem List Completed Was Problem List Reviewed/Reconciled?: Yes Hospital Course Hospital Course Hospital course: 64-year-old male with past medical history of right thumb amputation, DDD of spine, right C6 denervation, right shoulder labrum tear, right leg weakness, bilateral L5 pars defect, right leg weakness, presenting with worsening shortness of breath for 2 weeks, admitted for acute hypoxic respiratory failure secondary to new onset A-fib RVR and CHF exacerbation. In ED, O2 sat 95% on 2 L nasal cannula, elevated BNP 613, mild troponin elevated. EKG showed A-fib RVR in 170s. Chest x-ray showed mild heart failure. Improved on Lasix and diltiazem. In hospital, patient was found to have possible LV thrombus, started Eliquis. Mincing Machine Operator, Dr. Nathan, was consulted for A-fib RVR rate control. Patient had 1 episode of asymptomatic nonsustained V. tach for 20 seconds that required no intervention. Patient is stable and medically cleared for discharge. Will be discharged with regimen for A-fib RVR as below. Advised to follow-up with PCP and easement man outpatient. Return precaution provided. #AHRF, resolved #New onset A fib with RVR #New onset CHF #NSTEMI type II #LV thrombus #Nonsustained ventricular tachycardia #Transaminitis #Hyperbilirubinemia #Liver cirrhosis, MASLD #Pre-diabetes Instruction: - You were admitted to the hospital for atrial fibrillation, we will be discharging you on metoprolol succinate 100 mg in the morning and 50 mg in the evening along with Eliquis 5 mg twice a day. Also continue to take digoxin 250 mcg daily for your atrial fibrillation. We are discharging you on a blood thinner, risks and benefits were explained to you by the easement man. - You also have heart failure with reduced ejection fraction, please continue to take Lasix 40 mg daily, weigh yourself daily, monitor your daily fluid intake keep it less than 2 L, low-sodium diet and follow-up with your easement man outpatient. You will also need to be on GDMT, discussed with her easement man outpatient. - For your iron deficiency anemia continue to take iron tablets every other day. - Return to the ED if your symptoms worsen. - Follow-up with your easement man Dr. Nathan outpatient, call his office to make an appointment. - Obtain digoxin level outpatient in 1 week. - Follow-up with your primary care physician within 1 week. Assessment and plan discussed with my attending physician Dr. Booker and Dr. Valera (PGY-2). Dr. Shukla (PGY-1) ? advanced manufacturing vice president Status at Discharge Overall status at discharge: patient is progressing back to baseline Time Spent with Patient Time attestation: Total time spent providing and/or coordinating discharge services: Time spent: Greater than 30 minutes Exam Vital Signs Temp Pulse Resp BP Pulse Ox O2 Del Method O2 Flow Rate 97.4 F 110 H 20 119/78 96 Room Air 2 09/12/25 12:00 09/12/25 12:00 09/12/25 12:00 09/12/25 12:00 09/12/25 12:00 09/12/25 12:00 09/12/25 09:30 FiO2 4 11/16/25 04:00 Narrative Exam GENERAL: no acute distress, AAO x3. Obese HEENT: Head AT/ NC. Mucous membranes moist. PERRL. NECK: Supple, no lymphadenopathy, no carotid bruits. CARDIOVASCULAR: Irregular RR. Normal S1/S2, No m/r/g. 1+ pitting edema of BL LEs, more on R side RESPIRATORY: No wheezing, rhonchi, crackles. GASTROINTESTINAL: Abdomen soft, non tender no palpable masses. Bowel sounds p resent in all 4 quadrants. NEUROLOGICAL: CN II-XII grossly intact. No focal deficits. Sensation intact, symmetric. PSYCHIATRIC: Awake and alert, not agitated, normal mood and affect. INTEGUMENTARY: No obvious rashes, no jaundice, normal turgor. Discharge Plan Plan Patient Disposition: HOME (Self Care) Patient condition on transfer: Stable Care Plan Goals: - You were admitted to the hospital for atrial fibrillation, we will be discharging you on metoprolol succinate 100 mg in the morning and 50 mg in the evening along with Eliquis 5 mg twice a day. Also continue to take digoxin 250 mcg daily for your atrial fibrillation. We are discharging you on a blood thinner, risks and benefits were explained to you by the easement man. - You also have heart failure with reduced ejection fraction, please continue to take Lasix 40 mg daily, weigh yourself daily, monitor your daily fluid intake ke ep it less than 2 L, low-sodium diet and follow-up with your easement man outpatient. You will also need to be on GDMT, discussed with her easement man outpatient. - For your iron deficiency anemia continue to take iron tablets every other day. - Return to the ED if your symptoms worsen. - Follow-up with your easement man Dr. Nathan outpatient, call his office to make an appointment. - Obtain digoxin level outpatient in 1 week. - Follow-up with your primary care physician within 1 week. Prescriptions/Referrals Prescriptions/Med Rec: New apixaban 5 mg tablet 5 mg PO BID 30 Days Qty: 60 0RF digoxin 250 mcg (0.25 mg) tablet 0.25 mg PO QDAY 30 Days Qty: 30 0RF ferrous sulfate 325 mg (65 mg iron) Tablet,Delayed Release (Dr/Ec) 325 mg PO QOD 30 Days Qty: 15 0RF furosemide [Lasix] 40 mg tablet 40 mg PO QDAY Qty: 30 0RF metoprolol succinate 100 mg capsule,sprinkle,ER 24hr 100 mg PO QDAY Qty: 30 0RF metoprolol succinate 50 mg capsule,sprinkle,ER 24hr 50 mg PO HS Qty: 30 3RF Referrals: Marcus Nathan MD [Physician, Cardiology] No Primary/Family,Physician [Primary Care Provider] Outpatient Orders (i.e. Home Health, Labs, Imaging): Digoxin (Routine) Timeframe: 1 Week Location: Determined by Patient Ordered By: Ryder Horner Patient/Caregiver Discharge Instructions Discharge Activity: activity as tolerated Education Materials: Digoxin Medicine Level, AFL/Afib, Coping with Heart Failure Print Language: Hungarian Stand Alone Forms: Tatyana Award Info., Patient Portal Info Letter Discharge Order Discharge Orders: Discharge (Routine); Ordered 09/12/25 Ordered By: Ryder Horner Quality Discharge Quality Measures VTE prophylaxis
--- NOTE | 2025-09-12 15:20 | PC.SS ---
TISH Florence was notified by [facility] doctors that patient will need home oxygen, pending nurse updated note to submit for oxygen.
--- NOTE | 2025-09-12 15:27 | PC.CC ---
Cristiane ADAMS assisted Ludivina with ordering oxygen.
--- NOTE | 2025-09-12 15:35 | PC.NURSE ---
Room air SpO2% at rest: 95% Room air SpO2% with exercise: 73% SoO2% on 3L of oxygen with exercise: 95%
--- NOTE | 2025-09-12 15:48 | PC.SS ---
Addendum entered by FRANK Kate 09/12/25 16:05: oxygen to be delivered at bedside in 60-90 min by Jude. Addendum entered by FRANK Kate 09/12/25 16:04: ASW received update from [facility] stating oxygen will be delivered at bedside, ASW notified bedside nurse Heidy. Original Note: ASW submitted oxygen referral via [employer], pending responses.
[2025-09-13] VITALS (10 sets, daily range): BP systolic 102–132; BP diastolic 65–98; PULSE 51–98; RESP 15–18; TEMP 36.1–36.4; O2SAT 94–99
[2025-09-13 06:15] LABS: Basophils # (Auto) 0.1 Thou/mm3 (0.0-0.2); Basophils % (Auto) 2 % (0-2.5); Eosinophils # (Auto) 0.1 Thou/mm3 (0.0-0.5); Eosinophils % (Auto) 3 % (0-10); Hematocrit 45.6 % (41.0-53.0); Hemoglobin 14.2 g/dL (13.5-16.0); Immature Granulocytes Auto 0.01 Thou/mm3 (0.00-0.00); Lymphocytes # (Auto) 1.6 Thou/mm3 (1.0-4.8); Lymphocytes % (Auto) 30 % (10-50); Mean Corpuscular HGB Conc 31.1 g/dl (31.0-37.0); Mean Corpuscular Hemoglobin 28.5 pg (25.0-35.0); Mean Corpuscular Volume 91 fL (80-100); Monocytes # (Auto) 0.6 Thou/mm3 (0.0-0.8); Monocytes % (Auto) 10 % (0-12); Neutrophils # (Auto) 3.0 Thou/mm3 (1.8-7.7); Neutrophils % (Auto) 55 % (37-80); Nucleated Red Blood Cell # 0.00 Thou/mm3 (0.00-0.00); Nucleated Red Blood Cell % 0 /100 WBC (0); Platelet Count 169 Thou/mm3 (140-440); RDW Standard Deviation 49.7 fL (35.1-43.9); Red Blood Count 4.99 Miln/mm3 (4.50-5.90); White Blood Count 5.4 Thou/mm3 (3.8-10.6)
[2025-09-13 06:21] LABS: Alanine Aminotransferase 43 U/L (10-49); Albumin, Serum 4.0 gm/dL (3.4-4.8); Albumin/Globulin Ratio 1.6 (1.2-2.2); Alkaline Phosphatase 75 U/L (46-116); Anion Gap 9 (7-16); Aspartate Amino Transferase 26 U/L (0-34); BUN/Creatinine Ratio 12 Ratio (12-20); Bilirubin,Total 1.1 mg/dL (0.3-1.2); Blood Urea Nitrogen 13 mg/dL (9-23); Calcium 9.7 mg/dL (8.3-10.6); Calcium (Corrected) 9.7 mg/dL (8.5-10.1); Carbon Dioxide 31.5 mMol/L (20.0-31.0); Chloride 105 mMol/L (98-107); Creatinine (Component) 1.1 mg/dL (0.6-1.3); Globulin 2.5 gm/dL (2.3-3.5); Glucose 90 mg/dL (74-106); Magnesium 2.1 mg/dL (1.6-2.6); Osmolality,Calculated 288 (275-295); Phosphorous 4.2 mg/dL (2.4-5.1); Potassium 4.3 mMol/L (3.4-5.1); Sodium 145 mMol/L (136-145); Total Protein 6.5 gm/dL (5.7-8.2); eGFR > 60 See Note
--- NOTE | 2025-09-13 08:45 | PD.RESPRO ---
Documentation for date of: 09/13/25 Subjective Subjective Interval history: A 64-year-old male with no significant past medical history presented to the ED with worsening shortness of breath over the past two weeks, along with orthopnea, dyspnea on exertion, and weight gain. He also reported bilateral lower extremity edema. The patient has a sedentary lifestyle due to a history of back injury and surgeries. He denied chest pain, nausea, or vomiting. In the ED, the patient was hypoxic, with labs showing mildly elevated troponin and elevated BNP. He developed atrial fibrillation with a rapid ventricular response of 170. The patient was started on a diltiazem drip to control the heart rate and was admitted for acute hypoxic respiratory failure due to new-onset CHF and A-fib with RVR. Diuretics and anticoagulation were initiated, and cardiology was consulted for further management. Past medical history none Past surgical history back surgeries in 2006 Allergies tobacco Social living at home with son, denies smoking, alcohol or any other drug use. 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 No acute overnight events. Patient is saturating 96% on 3 liters, oxygen demands slowly decreasing. Renal function improving, creatinine is down from 1.3-1, overall he is stating that he is feeling much better. Currently patient is on Lasix 40 mg IV twice daily, can be continued with 40 daily, close monitor electrolytes, vitals are stable, A-fib, however rate controlled. Continue with metoprolol and Eliquis. Increase metoprolol to 50 mg twice daily blood pressure is permissible and systolic blood pressure greater than 100 mmHg. Also started on digoxin 0.25 mg every 6 hours for the next 24 hours for loading digoxin and then we will start the patient on 0.25 mg once daily after that from tomorrow. Patient will need goal-directed medical therapy with Entresto and spironolactone if blood pressure is permissible. And continue close monitoring renal function. 09/10/25. Patient was seen and examined at bedside, No acute overnight events. Saturating 97%on 3 L. Rate is better controlled now on digoxin as well as metoprolol. Lasix was decreased to 40 daily, UO 1L. On metoprolol 50 BID. Completed digoxin loading and will start the patient on digoxin 0.25 mg daily along with metoprolol for rate control. Check digoxin levels after 1 week. Continue current managment. CLose monitore vitals 09/11/2025:patient was seen and examined at bedside. Overnight patient had nonsustained V. tach about 20 seconds which was self-limited. Continue on telemetry, close monitor vitals, patient continue to be on metoprolol and digoxin, tolerates well for now, if patient continue to having nonsustained V. tach we will switch from digoxin to amiodarone. Will give additional dose of metoprolol XL 50 mg x 1 this evening if BP stable apart from metoprolol XL 50 twice daily. Keep electrolytes within normal limits. Patient still on IV diuresis, continue for now, from tomorrow if patient fluid status is stable can be transition to p.o. Lasix. 09/12/2025:Patient was seen at bedside . No acute overnight events. we can start on 100mg Metoprolol xl in the morning and 50mg Metoprolol in the evening for better control of his NSVT and Afib. Can continue 0.25mg of digoxin and 40mg of oral lasix.Reccomended outpatient follow up for optimization of his medications and his HFrEF after the discharge. 09/13/2025:Patient seen and examined at bedside. No acute overnight events. Patient is saturating 99% in 2 L nasal cannula. Chemistry panel within normal limit, creatinine is improving, 1.1, BUN is 13. Patient had total of 600 mL urine output since yesterday. Currently is on Lasix 40 IV push daily. Over 24 hours patient did not have any NSVT, currently is on metoprolol and digoxin. Plan is to discharge with metoprolol 100 a.m. and metoprolol 50 p.m. along with digoxin 0.25 mg daily, continue Eliquis. Patient will need close follow-up outpatient with cardiology to optimize the rest of the GDMT therapy and repeat echo in 3 months after GDMT therapy initiation. Exam Vital Signs Temp Pulse Resp BP Pulse Ox O2 Del Method O2 Flow Rate 96.9 F 51 L 18 121/98 H 94 L Room Air 2 09/13/25 04:00 09/13/25 07:14 09/13/25 07:14 09/13/25 04:00 09/13/25 07:14 09/13/25 04:00 09/13/25 07:14 FiO2 4 09/12/25 04:00 Narrative Exam GENERAL: no acute distress, AAO x3. Obese HEENT: Head AT/ NC. Mucous membranes moist. PERRL. NECK: Supple, no lymphadenopathy, no carotid bruits. CARDIOVASCULAR: Irregular RR. Normal S1/S2, No m/r/g. 1+ pitting edema of BL LEs, more on R side RESPIRATORY: No wheezing, rhonchi, crackles. GASTROINTESTINAL: Abdomen soft, non tender no palpable masses. Bowel sounds present in all 4 quadrants. NEUROLOGICAL: CN II-XII grossly intact. No focal deficits. Sensation intact, symmetric. PSYCHIATRIC: Awake and alert, not agitated, normal mood and affect. INTEGUMENTARY: No obvious rashes, no jaundice, normal turgor. Objective Labs 09/13/25 05:40 09/13/25 05:40 Labs: Laboratory Results - last 24 hr 09/13/25 05:40 WBC 5.4 RBC 4.99 Hgb 14.2 Hct 45.6 MCV 91 MCH 28.5 MCHC 31.1 RDW Std Deviation 49.7 H Plt Count 169 Neut % (Auto) 55 Lymph % (Auto) 30 Swain % (Auto) 10 Eos % (Auto) 3 Baso % (Auto) 2 Neut # (Auto) 3.0 Lymph # (Auto) 1.6 Swain # (Auto) 0.6 Eos # (Auto) 0.1 Baso # (Auto) 0.1 Immature Gran # (Auto) 0.01 H Absolute Nucleated RBC 0.00 Immature Gran % 0 Nucleated RBC % 0 Sodium 145 Potassium 4.3 Chloride 105 Carbon Dioxide 31.5 H Anion Gap 9 BUN 13 Creatinine 1.1 Estim Creat Clear Calc Not Performed. eGFR > 60 BUN/Creatinine Ratio 12 Glucose 90 Calculated Osmolality 288 Calcium 9.7 Corrected Calcium 9.7 Phosphorus 4.2 Magnesium 2.1 Total Bilirubin 1.1 AST 26 ALT 43 Alkaline Phosphatase 75 D Total Protein 6.5 Albumin 4.0 Globulin 2.5 Albumin/Globulin Ratio 1.6 Quality Measures Quality Measures VTE prophylaxis Assessment & Plan Assessment Current Active Medications: Generic Name Dose Route Start Last Admin Trade Name Freq PRN Reason Stop Dose Admin Acetaminophen 650 mg 09/07/25 22:45 Acetaminophen 325 Mg Tablet PO 10/07/25 22:44 Q6H PRN Fever >100.4 or pain 1-3 Apixaban 5 mg 09/08/25 09:00 09/12/25 20:47 Apixaban 2.5 Mg Tablet PO 10/08/25 08:59 5 mg BID KATINA Administration Digoxin 0.25 mg 09/11/25 09:00 09/12/25 08:22 Digoxin 0.125 Mg Tablet PO 10/11/25 08:59 0.25 mg QDAY KATINA Administration Famotidine 20 mg 09/08/25 09:00 09/12/25 20:48 Famotidine Inj 10 Mg/Ml Vial 2 Ml IVP 10/08/25 08:59 20 mg Q12HR KATINA Administration Ferrous Sulfate 325 mg 09/09/25 11:15 09/11/25 08:41 Ferrous Sulf 325 Mg Tablet PO 10/09/25 11:14 325 mg QOD KATINA Administration Furosemide 40 mg 09/10/25 09:00 09/12/25 08:25 Furosemide Inj 10 Mg/Ml 4ml Vial IVP 10/10/25 08:59 40 mg QDAY KATINA Administration Ondansetron HCl 4 mg 09/07/25 23:26 09/10/25 05:43 Ondansetron Inj 2 Mg/Ml Inj 2 Ml IVP 10/07/25 23:25 4 mg Q6HR PRN Administration NAUSEA OR VOMITING Protocol Plan Patient is a 64-year-old male without past medical history, never followed Dr. In the past was admitted for acute hypoxic respiratory failure secondary due to new onset CHF A-fib with RVR. #Acute hypoxic respiratory failure secondary due to new onset CHF-improving #Acute decompensated severe systolic congestive heart failure, NYHA class III - HFrEF 20-25% #NSTEMI type 2 demand ischemia Patient presented with worsening shortness of breath, orthopnea, dyspnea on exertion with bilateral lower extremity edema Elevated BNP level and hypoxia suggest volume overload and acute heart failure. CTA (-) for PE Echo 09/08/2025: Summary 1. Left ventricle size is mildly enlarged and systolic function is severely reduced. Estimated ejection fraction is 20-25%. There is grade II diastolic dysfunction. Cannot rule out Small LV thrombus. Will need echo contrast study which is not available here. 2. Right ventricle chamber size is normal and systolic function is normal. Estimated RVSP is 37 mmHg. mildly elevated RVSP. 3. There is moderate aortic valve sclerosis with no stenosis and mild regurgitation. 4. There is mild to moderate mitral and tricuspid valve regurgitation. 5. The left atrium is severely enlarged. The right atrium is moderately enlarged. 6. Dilated IVC with estimated RA pressure 15 mmHg. 7. There is trivial pericardial effusion with no tamponade. Recommendations Continue daily Lasix 40 IV, once volume status is stable, can transition to p.o.. Fluid restriction Close monitor urine output Keep electrolytes within normal limit, potassium above 4, magnesium above 2 Support with oxygen [id number] score is 4, recommended to continue with Eliquis twice daily Once patient vitals are more stable and fluid status is managed, patient will need to be on GDMT for heart failure to optimize long-term management. For now continue with metoprolol, For A-fib continue metoprolol 100mg in the morning and 50 mg in the evening , digoxin 0.25 daily and Eliquis. Can transitioned to oral Lasix 40mg. Follow-up with cardiology after discharge. Check digoxin levels after 1 week After discharge, patient need to follow-up outpatient with cardiology and based on vital signs and how patient tolerates current regimen Entresto can be initiated. Spironolactone will also need to be started. Follow-up: outpatient cardiology follow-up to discuss long-term management of heart failure, optimization of medical therapy, and assessment of any potential need for device therapy (e.g., ICD or ITEM PROCESSOR if indicated). #Nonsustained V. tach~20 seconds on 09/11/2025 Patient vitals currently are stable Continue monitor on telemetry No further episodes of NSVT and recommend to continue metoprolol XL as well as digoxin. Metoprolol XL increased to 100 mg in the morning and 50 mg in the evening. For now continue the same management, and close monitor vitals #A-fib with RVR new onset Patient was placed on diltiazem drip, however given the low EF, patient was transition to p.o. metoprolol, Rate is better controlled on metoprolol XL as well as digoxin as noted above. Continue Eliquis 5 mg twice daily for anticoagulation and status post questions elevated #?LV thrombus seen on ECHO, will need echo contrast study outpatient for now continue Elliquis rather than warfarin which is recommended to ensure patient compliance as he did not follow-up with doctors regularly before Patient care was discussed with attending physician Dr. Jac Guerrero MD PGY-2 Attending Provider Attestation/Addendum I have personally seen and examined the patient separately on the above date of service and discussed the plan of care with the resident. I reviewed the resident Dr. Sofia Sarabia consultation progress note and agree with the resident findings and plan in the note above and have also edited the documentation to reflect my findings and plan. Marcus Nathan M.D. Interventional Cardiology
[2025-09-13] MEDS: APIXABAN 2.5 MG TABLET 5 MG PO (08:47)
[2025-09-13] MEDS: FERROUS SULF 325 MG TABLET PO (08:48)
[2025-09-13] MEDS: DIGOXIN 0.125 MG TABLET 0.25 MG PO (08:48)
[2025-09-13] MEDS: METOPROLOL SUCCINATE XL 25 MG TABCR 100 MG PO (08:49)
[2025-09-13] MEDS: FAMOTIDINE INJ 10 MG/ML VIAL 2 ML 20 MG IVP (08:50)
[2025-09-13] MEDS: FUROSEMIDE INJ 10 MG/ML 4ML VIAL 40 MG IVP (08:51)
--- NOTE | 2025-09-13 16:04 | PD.RESDS ---
Planned Discharge Date 09/14/25 DS: Providers Provider Date of admission: 09/07/25 22:45 Primary care physician: Physician No Primary/Family Admitting Provider: Shawn Haque MD Attending Provider on Admission: Sheryl Steward MD Consults: 09/07/25 23:03 Consult to Cardiology Routine Comment: Consulting Provider: Marcus Nathan Attending Provider on DC: Sheryl Steward MD Discharging Provider: Sheryl Steward MD Anticipated date of discharge: 09/13/25 DS: Diagnosis Problem List Completed Was Problem List Reviewed/Reconciled?: Yes Hospital Course Hospital Course Hospital course: Note: Patient's discharge was held yesterday due to pending home oxygen delivery and pharmacy medication issue. Hospital Course: 64-year-old male with past medical history of right thumb amputation, DDD of spine, right C6 denervation, right shoulder labrum tear, right leg weakness, bilateral L5 pars defect, right leg weakness, presenting with worsening shortness of breath for 2 weeks, admitted for acute hypoxic respiratory failure secondary to new onset A-fib RVR and CHF exacerbation. In ED, O2 sat 95% on 2 L nasal cannula, elevated BNP 613, mild troponin elevated. EKG showed A-fib RVR in 170s. Chest x-ray showed mild heart failure. Improved on Lasix and diltiazem. In hospital, patient was found to have possible LV thrombus, started Eliquis. Cl[employer] Bol[employer] Wrapper, Dr. Nathan, was consulted for A-fib RVR rate control. Patient had 1 episode of asymptomatic nonsustained V. tach for 20 seconds that required no intervention. Patient is stable and medically cleared for discharge. Will be discharged with regimen for A-fib RVR as below. Advised to follow-up with PCP and solar installation crew supervisor outpatient. Return precaution provided. #AHRF, resolving #New onset A fib with RVR #Acute decompensated heart failure #New onset CHF, HFrEF EF 20 to 25%, systolic and diastolic heart failure #NSTEMI type II #LV thrombus #Nonsustained ventricular tachycardia #Transaminitis #Hyperbilirubinemia #Liver cirrhosis, MASLD #Pre-diabetes Instruction: - You were admitted to the hospital for atrial fibrillation, we will be discharging you on metoprolol succinate 100 mg in the morning and 50 mg in the evening along with Eliquis 5 mg twice a day. Also continue to take digoxin 250 mcg daily for your atrial fibrillation. We are discharging you on a blood thinner, risks and benefits were explained to you by the solar installation crew supervisor. - You also have heart failure with reduced ejection fraction, please continue to take Lasix 40 mg daily, weigh yourself daily, monitor your daily fluid intake keep it less than 2 L, low-sodium diet and follow-up with your solar installation crew supervisor outpatient. You will also need to be on GDMT, discussed with her solar installation crew supervisor outpatient. - For your iron deficiency anemia continue to take iron tablets every other day. - Return to the ED if your symptoms worsen. - Follow-up with your solar installation crew supervisor Dr. Nathan outpatient, call his office to make an appointment. - Obtain digoxin level outpatient in 1 week. - Follow-up with your primary care physician within 1 week. Case discussed with Attending Physician Dr. Bin Horner MD Internal Medicine PGY-2 Disclaimer: This note was dictated by speech recognition. Minor errors in business services assistant may be present due to voice recognition software. Status at Discharge Overall status at discharge: patient is progressing back to baseline Time Spent with Patient Time attestation: Total time spent providing and/or coordinating discharge services: 35 minutes Time spent: Greater than 30 minutes Exam Vital Signs Temp Pulse Resp BP Pulse Ox O2 Del Method O2 Flow Rate 97.6 F 72 18 129/87 H 99 Nasal Cannula 2 09/13/25 12:00 09/13/25 12:00 09/13/25 12:00 09/13/25 12:00 09/13/25 12:00 09/13/25 12:00 09/13/25 07:14 FiO2 4 09/12/25 04:00 Narrative Exam GENERAL: no acute distress, AAO x3. Obese HEENT: Head AT/ NC. Mucous membranes moist. PERRL. NECK: Supple, no lymphadenopathy, no carotid bruits. CARDIOVASCULAR: Irregular RR. Normal S1/S2, No m/r/g. 1+ pitting edema of BL LEs, more on R side RESPIRATORY: No wheezing, rhonchi, crackles. GASTROINTESTINAL: Abdomen soft, non tender no palpable masses. Bowel sounds present in all 4 quadrants. NEUROLOGICAL: CN II-XII grossly intact. No focal deficits. Sensation intact, symmetric. PSYCHIATRIC: Awake and alert, not agitated, normal mood and affect. INTEGUMENTARY: No obvious rashes, no jaundice, normal turgor. Discharge Plan Plan Patient Disposition: HOME (Self Care) Patient condition on transfer: Stable Care Plan Goals: - You were admitted to the hospital for atrial fibrillation, we will be discharging you on metoprolol succinate 100 mg in the morning and 50 mg in the evening along with Eliquis 5 mg twice a day. Also continue to take digoxin 250 mcg daily for your atrial fibrillation. We are discharging you on a blood thinner, risks and benefits were explained to you by the solar installation crew supervisor. - You also have heart failure with reduced ejection fraction, please continue to take Lasix 40 mg daily, weigh yourself daily, monitor your daily fluid intake keep it less than 2 L, low-sodium diet and follow-up with your solar installation crew supervisor outpatient. You will also need to be on GDMT, discussed with her solar installation crew supervisor outpatient. - For your iron deficiency anemia continue to take iron tablets every other day. - Return to the ED if your symptoms worsen. - Follow-up with your solar installation crew supervisor Dr. Nathan outpatient, call his office to make an appointment. - Obtain digoxin level outpatient in 1 week. - Follow-up with your primary care physician within 1 week. Prescriptions/Referrals Prescriptions/Med Rec: New apixaban 5 mg tablet 5 mg PO BID 30 Days Qty: 60 0RF digoxin 250 mcg (0.25 mg) tablet 0.25 mg PO QDAY 30 Days Qty: 30 0RF ferrous sulfate 325 mg (65 mg iron) Tablet,Delayed Release (Dr/Ec) 325 mg PO QOD 30 Days Qty: 15 0RF furosemide [Lasix] 40 mg tablet 40 mg PO QDAY Qty: 30 0RF metoprolol succinate 100 mg tablet extended release 24 hr 100 mg PO QAM Qty: 30 3RF metoprolol succinate 50 mg tablet extended release 24 hr 50 mg PO QPM Qty: 30 3RF Referrals: Marcus Nathan MD [Physician, Cardiology] No Primary/Family,Physician [Primary Care Provider] Outpatient Orders (i.e. Home Health, Labs, Imaging): Digoxin (Routine) Timeframe: 1 Week Location: Determined by Patient Ordered By: Ryder Horner Patient/Caregiver Discharge Instructions Discharge Activity: activity as tolerated Education Materials: Digoxin Medicine Level, AFL/Afib, Coping with Heart Failure Print Language: Luxembourger Stand Alone Forms: Tatyana Award Info., Patient Portal Info Letter Discharge Order Discharge Orders: Discharge (Routine); Ordered 09/13/25 Ordered By: Sheryl Steward Quality Discharge Quality Measures VTE prophylaxis MD Attestestation MD Attestation I have seen and examined the patient. I was physically present for the castle portions of the services provided including history, physical exam, diagnosis, treatment plans and orders. I agree with assessment and plan of care as documented by residents. Even though this this note was carefully revised there may still be minor errors in business services assistant due to voice recognition software. Sheryl Steward MD
== END 2025-09-13 13:13 | disposition home or self-care (01) | DRG 280 ==
LOC: SERX 21:31 → SERHOLD 23:04 → S2NX 09-08 00:18 → S3NX 09-13 03:19
PROVIDERS: Admitting Provider Student in an Organized Health Care Education/Training Program; Emergency Provider Emergency Medicine; Visit Provider Student in an Organized Health Care Education/Training Program
DX: I48.91 Unspecified atrial fibrillation (principal); J96.00 Acute respiratory failure, unspecified whether with hypoxia or hypercapnia; I21.A1 Myocardial infarction type 2; J96.01 Acute respiratory failure with hypoxia; R17 Unspecified jaundice; I50.40 Unspecified combined systolic (congestive) and diastolic (congestive) heart failure; I11.0 Hypertensive heart disease with heart failure; E66.01 Morbid (severe) obesity due to excess calories; R74.01 Elevation of levels of liver transaminase levels; M54.9 Dorsalgia, unspecified; R79.1 Abnormal coagulation profile; I47.20 Ventricular tachycardia, unspecified; I35.8 Other nonrheumatic aortic valve disorders; D50.9 Iron deficiency anemia, unspecified; K74.60 Unspecified cirrhosis of liver; R73.03 Prediabetes; Z79.01 Long term (current) use of anticoagulants; Z79.899 Other long term (current) drug therapy; Z98.1 Arthrodesis status
CPT/HCPCS: 36415; 71045; 71275; 76705; 80053; 80061; 81001; 82728; 83036; 83540; 83550; 83690; 83735; 83880; 84100; 84145; 84443; 84484; 85025; 85610; 85730; 86331; 86635; 93005; 93306; 94762; 96361; 96365; 96366; 96375; 96376; 99285; A4649; J1938; J2270; J2405; J3475; J3490; J7030; Q9967; A9270

== ENCOUNTER 2025-10-02 03:04 | Inpatient (IN) | payer BC, SELFPAY ==
[2025-10-02] VITALS (16 sets, daily range): BP systolic 120–167; BP diastolic 64–106; PULSE 69–130; RESP 12–24; TEMP 36.8–37.2; O2SAT 94–100; BMI 43.8
--- NOTE | 2025-10-02 03:13 | EKG_ITS ---
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
--- NOTE | 2025-10-02 03:42 | XR_ITS ---
EXAMINATION: AP chest single view TECHNIQUE: AP portable upright chest single view Date and time: October 02, 2025, 0350 hours INDICATIONS: Shortness of breath chest pain beginning today. FINDINGS: Moderate CHF Mild enlargement cardiac contour Prominent vascular congestion with perihilar edema Large left pleural effusion IMPRESSION: Moderate CHF Prominent left pleural effusion
[2025-10-02] MEDS: BUMETANIDE INJ 0.25 MG/ML VIAL 4 ML 1 MG IVP (03:52)
[2025-10-02] MEDS: MORPHINE SULF INJ 4 MG/ML VIAL 2 MG IVP (03:53)
--- NOTE | 2025-10-02 03:58 | PD.EDADULT ---
ED General RME/HPI General Chief complaint: Abdominal Pain Stated complaint: ABD PAIN Time Seen by Provider: 10/02/25 03:34 Arrival date/time: 10/02/25 03:04 Related Data Previous Rx's ?Medication ?Instructions ?Recorded apixaban 5 mg tablet 5 mg PO BID 30 days #60 tabs 09/11/25 digoxin 250 mcg (0.25 mg) tablet 0.25 mg PO QDAY 30 days #30 tabs 09/11/25 ferrous sulfate 325 mg (65 mg 325 mg PO QOD 30 days #15 tabs 09/11/25 iron) tablet,delayed release furosemide 40 mg tablet (Lasix) 40 mg PO QDAY #30 tabs 09/11/25 metoprolol succinate 100 mg 100 mg PO QAM #30 tabs 09/12/25 tablet,extended release 24 hr metoprolol succinate 50 mg 50 mg PO QPM #30 tabs 09/12/25 tablet,extended release 24 hr Allergies Allergy/AdvReac Type Severity Reaction Status Date / Time eucalyptus Allergy Verified 09/07/25 19:08 SODIUM PENTHOL Allergy Uncoded 09/07/25 19:08 TOBACCO Allergy Uncoded 09/07/25 19:08 ED Exam Narrative Physical exam: Physical Exam: GENERAL: Awake, answering questions appropriately, appears in moderate distress secondary to abdominal pain, morbidly obese HEENT: NC/AT. Moist mucosa. PERRLA/EOMI. CARDIO: Irregularly irregular, grade III/ systolic ejection murmur noted at left sternal base and second intercostal space on the left, no JVD. PULM: No coughing but visibly appears short of breath on 4 L nasal cannula. Poor respiratory effort and reduced breath sounds bilaterally GI: Abdomen soft grossly distended, morbidly obese, exquisitely tender to palpation in the left upper quadrant epigastric region, borborygmi apparent SKIN/MSK/EXT: +2 pitting edema to bilateral shins. Right thumb amputated versus hypoplastic. No wounds/discoloration/rashes/noted. +1 Pedal pulses present B/L. NEURO: Oriented x3, Moves extremities x4, no focal neurologic deficits noted Course Quality Measures none Orders Category Date Time Status CT Screening NOW Care 10/02/25 03:[address] Screening NOW Care 10/02/25 06:00 Active EKG (ED ONLY) *Do not use* NOW Care 10/02/25 03:13 Completed EKG (ED ONLY) *Do not use* NOW Care 10/02/25 03:42 Active Insert IV NOW Care 10/02/25 03:42 Active Saline [Insert IV] NOW Care 10/02/25 06:28 Completed Straight [In and Out Catheter] X1 Care 10/02/25 06:[address] angio chest abdomen pelvis Stat Exams 10/02/25 06:00 Ordered CXRP [XR chest 1V portable] Stat Exams 10/02/25 03:42 Taken EKG (ED Only) Stat Exams 10/02/25 03:13 Ordered EKG (ED Only) Stat Exams 10/02/25 03:42 Ordered ABG [Arterial Blood Gas] Stat Lab 10/02/25 06:30 Ordered BNP [B-Type Natriuretic Peptide] Stat Lab 10/02/25 04:24 Completed Bilirubin,Direct Stat Lab 10/02/25 06:30 Ordered Blood Culture (Lab) Stat Lab 10/02/25 06:30 Ordered CBC Stat Lab 10/02/25 04:24 Completed CMP [Comprehensive Metabolic Panel] Stat Lab 10/02/25 04:24 Completed COVID-19 Antigen (In-House) Stat Lab 10/02/25 06:28 Ordered CRP [C-Reactive Protein] Stat Lab 10/02/25 06:30 Ordered D-Dimer Stat Lab 10/02/25 06:30 Ordered ESR [Sed Rate (ESR)] Stat Lab 10/02/25 06:30 Ordered Hemoglobin A1C [Glycohemoglobin w (eAG)] Stat Lab 10/02/25 06:30 Ordered Influenza A & B Rapid Panel Stat Lab 10/02/25 06:28 Ordered Lactic Acid [Lactate (Lactic Acid)] Stat Lab 10/02/25 04:24 Completed Lipase Stat Lab 10/02/25 04:24 Completed Magnesium Stat Lab 10/02/25 06:30 Ordered Procalcitonin Stat Lab 10/02/25 06:30 Ordered TSH [Thyroid Stimulating Hormone] Stat Lab 10/02/25 06:30 Ordered Troponin I Stat Lab 10/02/25 06:30 Ordered UA, C/S IF [Urinalysis, C/S if Indicated] Stat Lab 10/02/25 06:30 Ordered Bumetanide Inj [Bumex Inj] Med 10/02/25 03:41 Discontinued 1 mg IVP X1 ONE DILTIAZEM in NS 100 MG (DO NOT [DILTIAZEM in NS 100 MG] Med 10/02/25 06:15 Active 100 mg in 100 ml IV 5 mg/hr Diltiazem Inj [Cardizem Inj] Med 10/02/25 06:00 Discontinued 20 mg IV X1 ONE Metoprolol Tartrate Inj [Lopressor Inj] Med 10/02/25 03:46 Discontinued 2.5 mg IVP X1 ONE Metoprolol Tartrate Inj [Lopressor Inj] Med 10/02/25 05:06 Discontinued 2.5 mg IVP X1 ONE Morphine* Inj Med 10/02/25 03:42 Discontinued 2 mg IVP X1 ONE Vital Signs Vital signs: Vital Signs Temperature 99.0 F 10/02/25 03:26 Pulse Rate 69 10/02/25 03:26 Respiratory Rate 24 H 10/02/25 03:26 Blood Pressure 167/106 H 10/02/25 03:26 Pulse Oximetry (%) 98 10/02/25 03:26 Oxygen Delivery Method Nasal Cannula 10/02/25 03:26 Oxygen Flow Rate 4 10/02/25 03:26 Discharge Plan Plan Patient Disposition: Admit Acute Care w/in Hospital Patient condition on transfer: Stable Prescriptions/Referrals Prescriptions/Med Rec: No Action apixaban 5 mg tablet 5 mg PO BID 30 Days Qty: 60 0RF digoxin 250 mcg (0.25 mg) tablet 0.25 mg PO QDAY 30 Days Qty: 30 0RF ferrous sulfate 325 mg (65 mg iron) Tablet,Delayed Release (Dr/Ec) 325 mg PO QOD 30 Days Qty: 15 0RF furosemide [Lasix] 40 mg tablet 40 mg PO QDAY Qty: 30 0RF metoprolol succinate 100 mg tablet extended release 24 hr 100 mg PO QAM Qty: 30 3RF metoprolol succinate 50 mg tablet extended release 24 hr 50 mg PO QPM Qty: 30 3RF Referrals: No Primary/Family,Physician [Primary Care Provider] - In 1 week Problem List Clinical Impression: Acute exacerbation of CHF (congestive heart failure) Clinical Impression: (Ruled Out): Abdominal pain Patient/Caregiver Discharge Instructions Print Language: Chinese Stand Alone Forms: Tatyana Award Info., Patient Portal Info Letter MDM Narrative MDM hospital course (for use when minimal MDM required): 65-year-old male with past medical history of congestive heart failure with severe systolic dysfunction HFrEF EF between 20 to 25%, A-fib RVR, right thumb amputation, DDD of spine, right C6 denervation presenting to the ED on 10/02 with severe abdominal pain associated with nausea and vomiting episodes. Patient states that he woke up with severe abdominal pain but that his last bowel movement was earlier in the day and was normal except that the color was green apparently. Patient has been passing gas without concern and denies having any sick contacts or any dietary changes. Patient is also been having significant edema and states that recently his medications were changed by cardiology to include Entresto and bumetanide and instead of taking Lasix. Patient apparently has not taking his Bumex dose as of yet. He is presenting with his son who is bedside and corroborated his story. Of note, patient has been told by previous attending doctor to come right back to the emergency room if he starts to experience worsening shortness of breath which he currently is. On examination, please refer to the physical exam note above; patient presented hypertensive 167/108, heart rate as high as 140s now currently at 123, respiratory rate of 24, afebrile saturating 98 but requiring 4 L of supplemental oxygen. Laboratory findings have been ordered and are pending including CBC CMP, BNP, lactic acid, lipase. Chest x-ray including CT angio of the abdomen/pelvis has been ordered as there is some concern for possible ischemic bowel considering the fact that patient has severe systolic dysfunction EF of 2025%, A-fib and exquisite tenderness on palpation. Differentials for patient's shortness of breath include: CHF exacerbation, volume overload status, pneumonia, PE, less likely to be pneumothorax Differentials for patient's abdominal tenderness include: Ischemic bowel, splenic infarct, peptic ulcer disease, gastritis, diverticulitis Patient was given 2 mg of IV morphine for pain control, Bumex 4 mg IV for the CHF exacerbation and what appears to be pulmonary edema as noted on chest x-ray and IV metoprolol 2.5 mg for the A-fib RVR as confirmed on EKG findings. Will continue monitoring the patient and await for CT angio of abdomen/pelvis Attending physician Dr. Hilario has been made aware Eliseo So DO PGY-2 Internal Medicine - GME Medication Administration(s) Medication Administration History Diltiazem/Sodium Chloride (Diltiazem In Ns 100 Mg) 100 mg in 100 mls @ 5 mls/hr IV .Q20H KATINA Stop: 11/01/25 06:14 Last Admin: 10/02/25 06:07 Dose: 5 mg/hr, 5 mls/hr Documented By: AMEENA Discontinued Medications Bumetanide (Bumetanide Inj 0.25 Mg/Ml Vial 4 Ml) 1 mg IVP X1 ONE Stop: 10/02/25 03:42 Last Admin: 10/02/25 03:52 Dose: 1 mg Documented By: AMEENA Diltiazem HCl (Diltiazem Inj 5 Mg/Ml Vial 5 Ml) 20 mg IV X1 ONE Stop: 10/02/25 06:01 Last Admin: 10/02/25 06:07 Dose: 20 mg Documented By: AMEENA Metoprolol Tartrate (Metoprolol Tartrate Inj 1 Mg/Ml Vial 5 Ml) 2.5 mg IVP X1 ONE Stop: 10/02/25 03:47 Last Admin: 10/02/25 03:55 Dose: 2.5 mg Documented By: AMEENA Metoprolol Tartrate (Metoprolol Tartrate Inj 1 Mg/Ml Vial 5 Ml) 2.5 mg IVP X1 ONE Stop: 10/02/25 05:07 Last Admin: 10/02/25 05:37 Dose: 2.5 mg Documented By: AMEENA Morphine Sulfate (Morphine Sulf Inj 4 Mg/Ml Vial) 2 mg IVP X1 ONE Stop: 10/02/25 03:43 Last Admin: 10/02/25 03:53 Dose: 2 mg Documented By: AMEENA
[2025-10-02 04:50] LABS: Lactate (Lactic Acid) 2.0 mMol/L (0.4-2.0)
[2025-10-02 04:54] LABS: Basophils # (Auto) 0.0 Thou/mm3 (0.0-0.2); Basophils % (Auto) 0 % (0-2.5); Eosinophils # (Auto) 0.1 Thou/mm3 (0.0-0.5); Eosinophils % (Auto) 1 % (0-10); Hematocrit 45.4 % (41.0-53.0); Hemoglobin 14.0 g/dL (13.5-16.0); Immature Granulocytes Auto 0.04 Thou/mm3 (0.00-0.00); Lymphocytes # (Auto) 1.2 Thou/mm3 (1.0-4.8); Lymphocytes % (Auto) 10 % (10-50); Mean Corpuscular HGB Conc 30.8 g/dl (31.0-37.0); Mean Corpuscular Hemoglobin 28.1 pg (25.0-35.0); Mean Corpuscular Volume 91 fL (80-100); Monocytes # (Auto) 0.7 Thou/mm3 (0.0-0.8); Monocytes % (Auto) 6 % (0-12); Neutrophils # (Auto) 10.2 Thou/mm3 (1.8-7.7); Neutrophils % (Auto) 84 % (37-80); Nucleated Red Blood Cell # 0.00 Thou/mm3 (0.00-0.00); Nucleated Red Blood Cell % 0 /100 WBC (0); Platelet Count 239 Thou/mm3 (140-440); RDW Standard Deviation 49.7 fL (35.1-43.9); Red Blood Count 4.99 Miln/mm3 (4.50-5.90); White Blood Count 12.2 Thou/mm3 (3.8-10.6)
[2025-10-02 05:13] LABS: Alanine Aminotransferase 25 U/L (10-49); Albumin, Serum 4.3 gm/dL (3.4-4.8); Albumin/Globulin Ratio 1.7 (1.2-2.2); Alkaline Phosphatase 80 U/L (46-116); Anion Gap 9 (7-16); Aspartate Amino Transferase 22 U/L (0-34); BUN/Creatinine Ratio 13 Ratio (12-20); Bilirubin,Total 1.7 mg/dL (0.3-1.2); Blood Urea Nitrogen 12 mg/dL (9-23); Calcium 9.1 mg/dL (8.3-10.6); Calcium (Corrected) 9.1 mg/dL (8.5-10.1); Carbon Dioxide 33.1 mMol/L (20.0-31.0); Chloride 103 mMol/L (98-107); Creatinine (Component) 0.9 mg/dL (0.6-1.3); Estimated Creatinine Clearance 107.5 mL/min (>60); Globulin 2.6 gm/dL (2.3-3.5); Glucose 146 mg/dL (74-106); Lipase 22 U/L (12-53); Osmolality,Calculated 291 (275-295); Potassium 3.6 mMol/L (3.4-5.1); Sodium 145 mMol/L (136-145); Total Protein 6.9 gm/dL (5.7-8.2); eGFR > 60 See Note
[2025-10-02 05:14] LABS: B-Type Natriuretic Peptide 1039 pg/mL (0-100)
--- NOTE | 2025-10-02 06:00 | XR_ITS ---
Examination: CTA chest, with intravenous contrast. CTA abdomen, with intravenous contrast. CTA pelvis, with intravenous contrast. 2-D sagittal and coronal reconstructions. 3-D reconstructions. Date and time of exam: October 02, 2025, 0712 hours INDICATIONS: Shortness of breath chest pain lower abdominal pain beginning 1:00 a.m. this morning CTDI vol (mgy) 26.8 DLP (MGycm) 1196 Technique: Multiple CTA images, 2.0 mm slice thickness, obtained chest, abdomen, pelvis, with the high-resolution 64 slice scanner. 100 cc [id number]-370 Is administered intravenously. Sagittal and coronal 2-D reconstructions are obtained. 3-D reconstructions, angiographic images are obtained. 3-D postprocessing, including vascular maximum intensity projections. Low dose protocols were performed. One or more of the following dose reduction techniques were used; automated exposure control, adjustment of the mA and/or KV according to patient size, use of iterative reconstruction technique. Findings: No thoracic aortic aneurysmal dilatation or dissection Pulmonary artery segments are not enlarged No pulmonary artery emboli. Mild enlargement cardiac contour with prominent vascular congestion. Pneumonia left base. Small pericardial effusion Large bilateral pleural effusions Liver is irregular in contour Distended gallbladder No splenic or pancreatic mass Nodular thickening left adrenal gland No renal or ureteral calculi, no hydronephrosis Normal appendix No bowel obstruction Colonic diverticulosis Suspicious for anasarca Mild ascites Intact urinary bladder No prostatomegaly Grade 1 spondylolisthesis L5 on S1 with advanced degenerative disc disease at this level IMPRESSION: Mild heart failure Pneumonia left base Large bilateral pleural effusions Cirrhosis Mild ascites Distended gallbladder, recommend about a biliary sonography follow-up Colonic diverticulosis Suspicious for anasarca No bowel obstruction
[2025-10-02] MEDS: DILTIAZEM INJ 5 MG/ML VIAL 5 ML 20 MG IV (06:07)
--- NOTE | 2025-10-02 06:20 | PD.EDADDENDU ---
Emergency Room Addendum Addendum Narrative: I took over the care from previous shift physician at _0600_ on _10/02/25_. See previous notes for complete H & P and ED course. I reviewed all diagnostic test results. Diagnoses include: CHF exacerbation Atrial fibrillation with RVR NSTEMI I discussed the case with our hospitalist. About the presentation and exam and diagnostics and treatments here. And need of further care in the hospital. Will accept the patient. Shahram Marshall MD
[2025-10-02 06:49] LABS: Collection Type, Urine Clean Catch
[2025-10-02 07:05] LABS: Bilirubin,Urine Negative (Negative); Blood,Urine Negative (Negative); Clarity,Urine Clear (Clear/Hazy); Color,Urine Colorless (Lt Yel-Yel); Culture Indicated,Urine Not Indicated; Glucose, Urine Negative (Negative); Ketones,Urine Negative (Negative); Leukocyte Esterase,Urine Negative (Negative); Nitrite,Urine Negative (Negative); PH,Urine 7.0 (5.0-7.0); Protein,Urine Negative (Neg - Trace); RBC,Urine < 1 /hpf (0-3); Specific Gravity,Urine 1.009 (1.001-1.035); Squamous Epithelial Cell,Urine < 1 /hpf (0-5); Urobilinogen,Urine Negative mg/dL (0.0-1.0); WBC,Urine < 1 /hpf (0-5)
[2025-10-02 07:16] LABS: Sed Rate (ESR) 27 mm/hr (0-20)
[2025-10-02 07:37] LABS: D-Dimer 979 ng/mL (<600); Glucose Estimated Average 126 mg/dL (80-131); Hemoglobin A1C 6.0 % Hgb (4.8-6.0)
--- NOTE | 2025-10-02 07:41 | XR_ITS ---
Examination: Abdomen sonogram, Limited Date and time of exam: October 02, 2025, 0920 hours INDICATIONS: Onset abdominal pain beginning 2 days ago Technique: Real-time lopez scale transabdominal sonographic images of the upper abdomen obtained. Findings: Normal gallbladder normal gallbladder Normal common bile duct. Pancreatic head 2.6 cm Liver 16.8 cm irregular contour no focal liver lesions Normal hepatopetal portal venous flow Patent IVC Small right pleural effusion IMPRESSION: Normal gallbladder
[2025-10-02 08:21] LABS: Bilirubin,Direct 1.1 mg/dL (0.0-0.3); C-Reactive Protein 1.6 mg/dL (0.0-0.9); Magnesium 1.8 mg/dL (1.6-2.6); Procalcitonin 0.46 ng/ml (0.0-0.49); Thyroid Stimulating Hormone 0.52 uIU/mL (0.55-4.78)
[2025-10-02 08:23] LABS: Troponin I 0.076 ng/mL (0.0-0.045)
[2025-10-02 09:43] LABS: Free T3 3.2 pg/mL (2.3-4.2); Free T4 (Free Thyroxine) 1.47 ng/dL (0.89-1.76)
--- NOTE | 2025-10-02 11:21 | ESCONSULT_ITS ---
HPI Data of Consult Requesting Physician: Chauncey Escamilla DO Admitting Provider: Chauncey Escamilla DO Attending Provider: Chauncey Escamilla DO Primary Care Provider: Physician No Primary/Family Consult Narrative History of present illness: History of Present Illness: 65-year-old male with past medical history of congestive heart failure with severe systolic dysfunction HFrEF EF between 20 to 25%, A-fib RVR, right thumb amputation, DDD of spine, right C6 denervation presenting to the hospital on 10/02/2025 due to worsening lower abdominal pain, shortness of breathe, Nausea and vomiting. It first started as lower abdominal pain last night, which developed into shivering, swelling of abdomen, shortness of breathe, Nausea and vomiting which prompted him to come to the hospital. Patient follows Dr. Nathan as a Assistant Drafter. Visited clinic 2 days ago (09/30). during which his medication changed from PO lasix to Sacubitral-valsartan 24-26 mg po qd and Bumetanide 2mg po qd. Yesterday, he took his last pill of Lasix along with Sacubitral-valsartan. On admission, patient denies SOB, palpitation, chest pain, Nausea and vomiting. Patient will be admitted and consulted for management of Acute on Chronic CHF ED course: Vitals: 99.0F, DE 69, RR:24, BP: 167/106, O2sat: 98% NC 4L. Labs: WBC: 12.2, Hgb: 14.0, Plt:238, Na:145, K:3.6, HCO3:33.1, Cr:0.9, eGFR>60, Glucose 146, Troponin: 0.076, CRP:1.6, BNP:1039, TSH: 0.52. CXR (10/02/2025) showed moderate CHF, Prominent Left pleural effusion CTA Chest/Abd/Pelvis (10/02/2025): showed mild HF, Large bilateral peural effusions, Cirrhosis, Mild ascites, Distended gallbladder In ED, patient received IV Bumex 1mg x1, Diltiazem drip, IV diltiazem 20mg x1, IV metoprolol Tartrate 2.5mg x2, Morphine 2mg IV x1. 10/02/2025: Labs reviewed and patient examined at the bedside. Continue on Metoprolol 100mg po in the morning and Metoprolol 50mg po HS, IV Bumex 2mg bid, Digoxin 0.25 mg po qd. Hold Sacubitrol-valsartan. Troponin level 0.076. Monitor troponin level until it downtrends. cc:: cc: Chauncey Escamilla, DO Review of Systems Review of Systems Narrative Review of Systems: All 12 systems assessed and the patient denies unless otherwise stated in HPI Exam Vital Signs Temp Pulse Resp BP Pulse Ox O2 Del Method O2 Flow Rate 98.9 F 108 H 22 H 141/78 H 94 L Nasal Cannula 3 10/02/25 08:16 10/02/25 08:16 10/02/25 08:16 10/02/25 08:16 10/02/25 08:16 10/02/25 08:16 10/02/25 08:16 Narrative Exam General: AAO x3 Eye: Normal conjunctiva, no scleral icterus HENT: Normocephalic, atraumatic, hearing intact to conversation at normal volume, moist oral mucosa Neck: Supple, non-tender, no JVD, no lymphadenopathy Lungs: Non-labored respirations, symmetric chest rise, Clear to auscultate bilaterally, No wheezing, rhonchi, crackles Heart: Peripheral pulses intact bilaterally, Regular Rate and Rhythm. 2/4 Systolic murmur Abdomen: Soft, no palpable masses, Moderate distenstion of lower abdomen. Mild tenderness on palpation. Musculoskeletal: Normal range of motion and strength, +3 pitting edema BLE., Right thumb amputated. Skin: Skin is warm, dry, no rashes or lesions. Neuro: Cranial nerves II-XII grossly intact. Sensations intact to light touch. Results Labs 10/04/25 04:52 10/04/25 04:52 Labs: Short CBC 10/02/25 Range/Units 04:24 WBC 12.2 H (3.8-10.6) Thou/mm3 Hgb 14.0 (13.5-16.0) g/dL Hct 45.4 (41.0-53.0) % Plt Count 239 D (140-440) Thou/mm3 BMP 10/02/25 04:24 Sodium 145 Potassium 3.6 Chloride 103 Carbon Dioxide 33.1 H BUN 12 Creatinine 0.9 Glucose 146 H Calcium 9.1 Cardiac Enzymes 10/02/25 Range/Units 07:30 Troponin I 0.076 H* (0.0-0.045) ng/mL Liver Function 10/02/25 10/02/25 Range/Units 04:24 07:30 Total Bilirubin 1.7 H (0.3-1.2) mg/dL Direct Bilirubin 1.1 H (0.0-0.3) mg/dL AST 22 (0-34) U/L ALT 25 (10-49) U/L Alkaline Phosphatase 80 (46-116) U/L Albumin 4.3 (3.4-4.8) gm/dL Urine 10/02/25 Range/Units 06:40 Urine Color Colorless A (Lt Yel-Yel) Urine Clarity Clear (Clear/Hazy) Urine pH 7.0 (5.0-7.0) Ur Specific Alexander 1.009 (1.001-1.035) Urine Protein Negative (Neg - Trace) Urine Glucose (UA) Negative (Negative) Quality Measures Quality Measures none Medications Home Medications and Allergies Home Medications ?Medication ?Instructions ?Recorded ?Confirmed ?Type bumetanide 2 mg tablet 2 mg PO DAILY 10/02/2510/02 History sacubitril 24 mg-valsartan 26 mg 0.5 tab PO BID 10/02/25 History tablet Allergies Allergy/AdvReac Type Severity Reaction Status Date / Time eucalyptus Allergy Verified 09/07/25 19:08 SODIUM PENTHOL Allergy Uncoded 09/07/25 19:08 TOBACCO Allergy Uncoded 09/07/25 19:08 Visit Medications Acetaminophen (Acetaminophen 325 Mg Tablet) 650 mg PO Q6H PRN PRN Reason: Fever >100.4 or pain Stop: 11/01/25 10:41 Apixaban (Apixaban 2.5 Mg Tablet) 5 mg PO BID [facility] Stop: 11/01/25 10:59 Bumetanide (Bumetanide Inj 0.25 Mg/Ml Vial 4 Ml) 2 mg IVP QDAY KATINA Stop: 11/01/25 10:59 Digoxin (Digoxin 0.125 Mg Tablet) 0.25 mg PO QDAY [facility] Stop: 11/02/25 08:59 Diltiazem/Sodium Chloride (Diltiazem In Ns 100 Mg) 100 mg in 100 mls @ 5 mls/hr IV .Q20H [facility] Stop: 11/01/25 06:14 Last Admin: 10/02/25 06:07 Dose: 5 mg/hr, 5 mls/hr Metoprolol Succinate (Metoprolol Succinate Xl 25 Mg Tabcr) 100 mg PO QAM [facility] Stop: 11/02/25 08:59 Metoprolol Succinate (Metoprolol Succinate Xl 25 Mg Tabcr) 50 mg PO HS [facility] Stop: 11/01/25 20:59 Sacubitril/Valsartan (Sacubitril 24 Mg/Valsartan 26 Mg Tablet) 0.5 tab PO BID [facility] Stop: 11/01/25 20:59 Sennosides (Senna Tablet) 1 tab PO QDAY PRN; Protocol PRN Reason: constipation Stop: 11/01/25 10:41 Discontinued Medications Bumetanide (Bumetanide Inj 0.25 Mg/Ml Vial 4 Ml) 1 mg IVP X1 ONE Stop: 10/02/25 03:42 Last Admin: 10/02/25 03:52 Dose: 1 mg Diltiazem HCl (Diltiazem Inj 5 Mg/Ml Vial 5 Ml) 20 mg IV X1 ONE Stop: 10/02/25 06:01 Last Admin: 10/02/25 06:07 Dose: 20 mg Metoprolol Tartrate (Metoprolol Tartrate Inj 1 Mg/Ml Vial 5 Ml) 2.5 mg IVP X1 ONE Stop: 10/02/25 03:47 Last Admin: 10/02/25 03:55 Dose: 2.5 mg Metoprolol Tartrate (Metoprolol Tartrate Inj 1 Mg/Ml Vial 5 Ml) 2.5 mg IVP X1 ONE Stop: 10/02/25 05:07 Last Admin: 10/02/25 05:37 Dose: 2.5 mg Morphine Sulfate (Morphine Sulf Inj 4 Mg/Ml Vial) 2 mg IVP X1 ONE Stop: 10/02/25 03:43 Last Admin: 10/02/25 03:53 Dose: 2 mg Assessment & Plan Plan 65-year-old male with past medical history of congestive heart failure with severe systolic dysfunction HFrEF EF between 20 to 25%, A-fib RVR, right thumb amputation, DDD of spine, right C6 denervation presenting to the hospital on 10/02/2025 due to worsening lower abdominal pain, shortness of breathe, Nausea and vomiting. Patient will be admitted and consulted for management of Acute on Chronic CHF #Acute on Chronic CHF #Severe bilateral Pleural effusion #NSTEMI Type II #Hx of Decompensated HF, NYHA class III #Hx of HFrEF 20-25% (ECHO 09/21/2025) -Presented to hospital due to worsening SOB, PND, orthpnea with +3 pitting edema of bilateral Lower extremity -On admission, Troponin 0.076, BNP: 1039, -CXR (10/02/2025) showed moderate CHF, Prominent Left pleural effusion -CTA Chest/Abd/Pelvis (10/02/2025): showed mild HF, Large bilateral peural effusions, Cirrhosis, Mild ascites, Distended gallbladder -Past ECHO (09/21/2025): showed EF of 20-25%, Grade II diastolic dysfunction. RVSP 37mmHg with RAP 15mmHg, Moderate aortic valve sclerosis, Mild AR, Mild to Moderate MR and TR. At the time, could not rule out Small LV thrombus. -Elevated troponin likely in the setting of CHF exacerbation Plan: -Continue IV Bumex 2mg bid. if patient's volume status improves, change to PO -Continue to monitor troponin levels until it downtrends. -Hold Sacubitral-Valsartan -Fluid restrict 1500ml daily -Strict I&O -Close monitor of UOP #A-Fib with RVR -EKG showing A-fib pattern -Previously diagnosed with Rfib w/ RVR in last admission on 09/07/2025. -In ED, patient received Diltiazem drip, IV diltiazem 20mg x1, IV metoprolol Tartrate 2.5mg x2, Plan: -Continue on Metoprolol 100mg po in the morning and Metoprolol 50mg po HS, -Digoxin 0.25 mg po qd #Liver Cirrhosis -Management per Primary Hospitalist team Thank you for allowing us to participate in the care of your patient. Assessment and plan discussed with my attending physician Dr. Jac Ames (PGY-1) - Internal medicine resident Attending Provider Attestation/Addendum I have personally seen and examined the patient separately on the above date of service and discussed the plan of care with the resident. I reviewed the resident Dr. Robert Ames consultation progress note and agree with the resident findings and plan in the note above and have also edited the documentation to reflect my findings and plan. Marcus Nathan M.D. Interventional Cardiology
[2025-10-02 12:11] LABS: Troponin I 0.076 ng/mL (0.0-0.045)
--- NOTE | 2025-10-02 12:32 | PD.RESHP ---
Documentation for date of: 10/02/25 HPI History of Present Illness Chief complaint: HFrEF exacerbation History of present illness: Rocael Doe 65M pmhx significant for HFrEF (20-25%), atrial fibrillation, DDD, chronic back pain, and R C6 dennervation who presents with progressive anascara and SOB. Patient reports that since discharge in August he has been steadily swelling especially lower abdomen and legs with weakness. Also endorses shortness of breath and for the past week he has required 4 L of O2 when his baseline is 3 L. Reports dyspnea on exertion about 10-15 feet, orthopnea, PND and leg swelling. Had appointment with Dr. Nathan in which he was prescribed Bumex 2 mg daily and Entresto half tablet twice daily. Patient had not yet started medication and was previously on Lasix 40 mg twice daily. Denies diarrhea, recent illness, fever/chills or nausea or vomiting. PMHx: as above Surgical Hx: Cervical fusion 2006 FHx: Significant for heart attack, strokes both sides of family Social Hx: Denies smoking, alcohol or recreational/illicit drug use. 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 Lives at home with son. Independent of all ADLs. Walks with cane. Allergies: NKDA Medications: In ED, BP 164/106, HR 69, RR 24, afebrile 98% 4L O2, significant labs include WBC 12.2, Hgb 14, K 3.6, bicarb 33.1, Cr 0.9, troponin 0.076x2, CRP 1.6, BNP 1039. In ED, given IV Bumex 1mg x1, Diltiazem drip, IV diltiazem 20mg x1, IV metoprolol Tartrate 2.5mg x2, Morphine 2mg IV x1. CXR moderate CHF, Prominent Left pleural effusion. C/A/P CTA mild HF, Large bilateral peural effusions, Cirrhosis, Mild ascites, Distended gallbladder. Cardiology consulted for CHF exacerbation. Patient was admitted for further management of CHF exacerbation. Review of Systems Review of Systems Systems Reviewed: All systems reviewed, normal except as documented Exam Vital Signs Temp Pulse Resp BP Pulse Ox O2 Del Method O2 Flow Rate 98.9 F 108 H 22 H 141/78 H 94 L Nasal Cannula 3 10/02/25 08:16 10/02/25 08:16 10/02/25 08:16 10/02/25 08:16 10/02/25 08:16 10/02/25 08:16 10/02/25 08:16 Narrative Exam GENERAL: AOx3, no acute distress HEENT: mucous membranes moist, bilateral sclera anicteric CARDIOVASCULAR: regular rate and rhythm, S1/S2 present, 2/6 systolic murmur, JVD unable to be appreciated PULMONARY: clear to auscultation bilaterally, no rales/rhonchi/wheezes ABDOMINAL: soft, no rebound/guarding, bowel sounds present, moderate distension of lower abdomen also TTP EXTREMITIES: 3+ pitting edema BLE, R thumb amputated although nail remains SKIN: warm and dry, intact, no rashes NEURO: CN II-XII grossly intact, no focal deficits, alert, following commands Results: Labs 10/02/25 04:24 10/02/25 04:24 Labs: Short CBC 10/02/25 Range/Units 04:24 WBC 12.2 H (3.8-10.6) Thou/mm3 Hgb 14.0 (13.5-16.0) g/dL Hct 45.4 (41.0-53.0) % Plt Count 239 D (140-440) Thou/mm3 BMP 10/02/25 04:24 Sodium 145 Potassium 3.6 Chloride 103 Carbon Dioxide 33.1 H BUN 12 Creatinine 0.9 Glucose 146 H Calcium 9.1 Cardiac Enzymes 10/02/25 10/02/25 Range/Units 07:30 11:20 Troponin I 0.076 H* 0.076 H* (0.0-0.045) ng/mL Liver Function 10/02/25 10/02/25 Range/Units 04:24 07:30 Total Bilirubin 1.7 H (0.3-1.2) mg/dL Direct Bilirubin 1.1 H (0.0-0.3) mg/dL AST 22 (0-34) U/L ALT 25 (10-49) U/L Alkaline Phosphatase 80 (46-116) U/L Albumin 4.3 (3.4-4.8) gm/dL Urine 10/02/25 Range/Units 06:40 Urine Color Colorless A (Lt Yel-Yel) Urine Clarity Clear (Clear/Hazy) Urine pH 7.0 (5.0-7.0) Ur Specific [place] 1.009 (1.001-1.035) Urine Protein Negative (Neg - Trace) Urine Glucose (UA) Negative (Negative) Quality Measures Quality Measures none Medications Home Medications and Allergies Home Medications ?Medication ?Instructions ?Recorded ?Confirmed ?Type bumetanide 2 mg tablet 2 mg PO DAILY 10/02/25 10/02/25 History sacubitril 24 mg-valsartan 26 mg 0.5 tab PO BID 10/02/25 10/02/25 History tablet Allergies Allergy/AdvReac Type Severity Reaction Status Date / Time eucalyptus Allergy Verified 09/07/25 19:08 SODIUM P[place] Allergy Uncoded 09/07/25 19:08 TOBACCO Allergy Uncoded 09/07/25 19:08 Visit Medications Acetaminophen (Acetaminophen 325 Mg Tablet) 650 mg PO Q6H PRN PRN Reason: Fever >100.4 or pain Stop: 11/01/25 10:41 Apixaban (Apixaban 2.5 Mg Tablet) 5 mg PO BID [facility] Stop: 11/01/25 10:59 Bumetanide (Bumetanide Inj 0.25 Mg/Ml Vial 4 Ml) 2 mg IVP QDAY [facility] Stop: 11/01/25 10:59 Digoxin (Digoxin 0.125 Mg Tablet) 0.25 mg PO QDAY [facility] Stop: 11/02/25 08:59 Diltiazem/Sodium Chloride (Diltiazem In Ns 100 Mg) 100 mg in 100 mls @ 5 mls/hr IV .Q20H KATINA Stop: 11/01/25 06:14 Last Admin: 10/02/25 06:07 Dose: 5 mg/hr, 5 mls/hr Metoprolol Succinate (Metoprolol Succinate Xl 25 Mg Tabcr) 100 mg PO QAM [facility] Stop: 11/02/25 08:59 Metoprolol Succinate (Metoprolol Succinate Xl 25 Mg Tabcr) 50 mg PO HS [facility] Stop: 11/01/25 20:59 Sacubitril/Valsartan (Sacubitril 24 Mg/Valsartan 26 Mg Tablet) 0.5 tab PO BID [facility] Stop: 11/01/25 20:59 Sennosides (Senna Tablet) 1 tab PO QDAY PRN; Protocol PRN Reason: constipation Stop: 11/01/25 10:41 Discontinued Medications Bumetanide (Bumetanide Inj 0.25 Mg/Ml Vial 4 Ml) 1 mg IVP X1 ONE Stop: 10/02/25 03:42 Last Admin: 10/02/25 03:52 Dose: 1 mg Diltiazem HCl (Diltiazem Inj 5 Mg/Ml Vial 5 Ml) 20 mg IV X1 ONE Stop: 10/02/25 06:01 Last Admin: 10/02/25 06:07 Dose: 20 mg Metoprolol Tartrate (Metoprolol Tartrate Inj 1 Mg/Ml Vial 5 Ml) 2.5 mg IVP X1 ONE Stop: 10/02/25 03:47 Last Admin: 10/02/25 03:55 Dose: 2.5 mg Metoprolol Tartrate (Metoprolol Tartrate Inj 1 Mg/Ml Vial 5 Ml) 2.5 mg IVP X1 ONE Stop: 10/02/25 05:07 Last Admin: 10/02/25 05:37 Dose: 2.5 mg Morphine Sulfate (Morphine Sulf Inj 4 Mg/Ml Vial) 2 mg IVP X1 ONE Stop: 10/02/25 03:43 Last Admin: 10/02/25 03:53 Dose: 2 mg Assessment & Plan Plan Rocael Doe 65M pmhx significant for HFrEF (20-25%) with severe systolic dysfunction, atrial fibrillation on Eliquis with hx of RVR, right thumb amputation, DDD of spine, right C6 denervation DDD, chronic back pain, and R C6 dennervation who presents with progressive anascara and SOB, admitted for acute on chronic HFrEF exacerbation. #Acute on chronic HFrEF (20-25%), NYHA III #Bilateral pleural effusion #NSTEMI type II #Metabolic alkalosis, likely contraction 2/2 diuresis Presents with abdominal pain due to progressive anascarca, SOB with inc in O2 requirement, dyspnea on exertion, orthopnea, and PND. BNP 1k, trop 0.076 flat x2. Recently dx with HFrEF in 08/2025, unknown cause, denies [place], substance use or strong family hx. Follows Dr. Nathan outpatient, last saw 10/01 and was prescribed Bumex and Entresto, but has yet to start. Echo 09/21/25: LV size mildly enlarged with systolic function severely reduced, estimated EF 2024%, G2DD, RV size and systolic function normal, estimated RVSP 37 mmHg, moderate AV sclerosis without stenosis and mild regurgitation, mild to moderate MVR and TVR, LA severely enlarged, RA moderately enlarged, dilated IVC, trivial pericardial effusion CXR: moderate CHF, prominent L pleural effusion. C/A/P CTA: mild HF, PNA L base, b/l large pleural effusion, cirrhosis, mild ascities, distended GB, colonic diverticulosis. Abd US: normal GB Possible inadequate diuresis since previous discharge. s/p acetazolamide 10/02 Plan: - Cardiology consulted, recs appreciated: hold Entresto to account for BP with aggressive diuresis - IV Bumex 2 mg BID with goal net negative 2-3L negative within 24h - CTM for contraction alkalosis and kidney fx - Strict I&Os, daily weights, 1.5L fluid restriction - Keep K>4 and Mg>2 at all times - If pleural effusions persistent following adequate diuresis, will consider thoracentsis #Atrial fibrillation #Hx of atrial fibrillation RVR Recently diagnosed with atrial fibrillation during 08/2025 admission. EKG shows atrial fibrillation rate 93. Plan: - Cardiology consulted, recs appreciated - Continue home Eliquis 5 mg BID - Continue home metoprolol XL 100 mg qAM and 50 mg qhs, and digoxin 0.25 mg QD - AM digoxin level ordered Hospital management: Lines: PIV Diet: cardiac, low sodium, 1.5L fluid restriction Bowel: not indicated GI prophylaxis: senna prn DVT prophylaxis: Eliquis 5 mg BID Disposition: tele, IV diuresis CODE STATUS: FULL CODE Plan of care discussed with attending Dr. Escamilla, and PGY-3 Dr. Mantilla. Ellie Cifuentes, DO PGY-1 Internal Medicine Senior Resident Attestation: The patient is a 65-year-old male with significant past medical history of HFrEF 20 to 25%, atrial fibrillation, chronic back pain, C6 denervation presented to ED on 10/02/2025 with chief complaint of generalized anasarca and SOB. He reported that his swelling has been worsening since early August, and requiring about 4 L of oxygen despite his baseline being 3 L. He followed up yesterday with forge press operator Dr. 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 This morning he presented to ED. In the ED his BNP was 1039, and he received Bumex 1 mg x 1, morphine 2 mg IV x 1, and CXR revealed moderate CHF, with prominent left pleural effusion, chest/abdomen/pelvis CTA revealed mild heart failure, large bilateral pleural effusion, cirrhosis, mild ascites and distended gallbladder. Physical exam is significant for generalized anasarca. The patient was started on Bumex 2 mg twice daily, acetazolamide 500 mg IV x 1, digoxin 0.25 mg daily, metoprolol succinate 100 Mg daily and 50 mg at night, and senna as needed for constipation. We will continue to check on ins and outs, and the patient will possibly need cardiac catheterization for finding of the reason for recent HFrEF. I discussed with and supervised the internet sales associate physician involved in the care of this patient. I personally saw and examined the patient and discussed the assessment and plan with the entire medicine team, including my attending. I agree with the assessment and plan as documented above. Claudy Mantilla MD PGY3 Internal Medicine Attending Provider Attestation/Addendum I or my resident physicians have discussed care with the ED physician and I have made the decision to admit. I have discussed and was present for the essential components of the history, physical examination, diagnosis, and treatment plan with the resident. I agree with the patient's care as documented by the resident and amended herein by me. Jovan Escamilla DO. Although this document has been carefully reviewed, there may still be some phonetic and other typographical errors. These errors are purely grammatical due to imperfections in the software program and should not be construed in any way to compromise the substance of the patient's medical care during this visit. Patient seen and evaluated in the ED. In short, the patient is a 65-year-old male with a significant past medical history of HFrEF with an EF of 20-25% recently diagnosed in August 2025, atrial fibrillation on Eliquis, degenerative disc disease who presented to the ED today for progressive fluid overload and shortness of breath since his discharge from [facility] on 09/13/2025. The patient also endorsed abdominal pain, worse in the lower quadrants, nausea and vomiting, his abdominal pain started the night prior to admission, he also endorsed rigors at that time. On that admission, the patient was admitted for acute hypoxic respiratory failure secondary to new onset a atrial fibrillation and new onset heart failure with exacerbation. He does not know the cause of his heart failure. Echo on 09/07/2025 at that time demonstrated an EF of 20 to 25% with a mildly enlarged left ventricle and a severely reduced systolic function. Grade 2 diastolic function was also noted. RVSP was noted to be 37. Mild to moderate mitral and tricuspid valve regurgitation was noted and the left atrium was severely enlarged. The right atrium moderately enlarged. Dilation of the IVC with estimated RA pressure of 15 mmHg was also noted. The patient was recently converted from Lasix to Bumex 2 mg p.o. daily however has not taken the Bumex as of yet. The patient was also started on Entresto 24-26 mg p.o. daily. The patient does follow-up with forge press operator, Dr Jac senior seen in the office approximately 2 days prior to admission. Per patient. In the ED, patient was hypertensive with a BP of 167/106 mmHg, respiratory rate was 24, the patient was afebrile on nasal cannula, 4 L SpO2 90%. Significant labs included WBC of 12.2, D-dimer 979, normal sodium and potassium, bicarb 33.1, T. bili 1.7 and a troponin of 0.076 which had seemed to plateau. Urinalysis was negative. Chest x-ray demonstrated moderate CHF and a prominent left pleural effusion, CTA chest demonstrated mild heart failure, a left base pneumonia, large bilateral pleural effusions, cirrhosis, mild ascites a distended gallbladder, colonic diverticulosis, and possible anasarca. An abdominal ultrasound was also performed in the ED demonstrating normal gallbladder. EKG demonstrated atrial fibrillation with a rate of 93 and a QTc interval of 414. Patient admitted to acute telemetry, significant problem list below: #Acute decompensated heart failure, history of HFrEF with an EF of 20-25% per echocardiogram in 09/07/2025 #Anasarca secondary to above #Bilateral pleural effusions secondary to above #Demand ischemia #Metabolic alkalosis #Atrial fibrillation on Eliquis Plan: Patient admitted to acute telemetry, cardiology has been consulted, patient started on Bumex 2 mg IV twice daily, a dose of acetazolamide was also given for alkalosis as well, heart failure measures in place to include strict I's and O's, daily weights and fluid restriction to 1.5 L/day. For the patient's pleural effusions, hopefully will resolve with diuresis however will consider thoracentesis on Saturday if not, will replete electrolytes as needed, start patient on his home medications as appropriate to include his home dose Eliquis 5 mg p.o. twice daily and metoprolol XL 100 mg every morning and 50 mg nightly as well as digoxin 0.25 mg daily. Digoxin level also has been ordered. Patient is in no acute distress at this time, likely discharge in 2 to 3 days following adequate diuresis and specialist recommendations.
--- NOTE | 2025-10-02 13:15 | PC.NURSE ---
CTA shows PA. Went to covid swab pt for admission. Pt refusing covid swab. Charge nurse notified.
[2025-10-02] MEDS: APIXABAN 2.5 MG TABLET 5 MG PO ×2 (13:47→20:33)
[2025-10-02] MEDS: BUMETANIDE INJ 0.25 MG/ML VIAL 4 ML 2 MG IVP ×2 (13:48→20:34)
[2025-10-02] MEDS: METOPROLOL SUCCINATE XL 25 MG TABCR 50 MG PO (20:33)
--- NOTE | 2025-10-02 22:22 | PC.NURSE ---
Unable to do bedside COVID-19 Antigen test and MRSA d/t patient refusal despite multiple attempts. Dr. Waterman was made aware, said he will let the day team know. Pt to remain at the isolation room.
[2025-10-03] VITALS (15 sets, daily range): BP systolic 107–142; BP diastolic 69–89; PULSE 62–109; RESP 17–25; TEMP 36.1–36.9; O2SAT 96–100; BMI 43.8
[2025-10-03 00:50] LABS: Collection Type, Urine Clean Catch; Squamous Epithelial Cell,Urine 0 /hpf (0-5)
[2025-10-03 00:59] LABS: Bilirubin,Urine Negative (Negative); Blood,Urine Negative (Negative); Clarity,Urine Clear (Clear/Hazy); Color,Urine Colorless (Lt Yel-Yel); Culture Indicated,Urine Not Indicated; Glucose, Urine Negative (Negative); Ketones,Urine Negative (Negative); Leukocyte Esterase,Urine Negative (Negative); Nitrite,Urine Negative (Negative); PH,Urine 8.0 (5.0-7.0); Protein,Urine Negative (Neg - Trace); RBC,Urine 6 /hpf (0-3); Specific Gravity,Urine 1.008 (1.001-1.035); Urobilinogen,Urine Negative mg/dL (0.0-1.0); WBC,Urine < 1 /hpf (0-5)
[2025-10-03 05:54] LABS: Basophils # (Auto) 0.1 Thou/mm3 (0.0-0.2); Basophils % (Auto) 1 % (0-2.5); Eosinophils # (Auto) 0.1 Thou/mm3 (0.0-0.5); Eosinophils % (Auto) 1 % (0-10); Hematocrit 38.0 % (41.0-53.0); Hemoglobin 12.1 g/dL (13.5-16.0); Immature Granulocytes Auto 0.04 Thou/mm3 (0.00-0.00); Lymphocytes # (Auto) 1.1 Thou/mm3 (1.0-4.8); Lymphocytes % (Auto) 11 % (10-50); Mean Corpuscular HGB Conc 31.8 g/dl (31.0-37.0); Mean Corpuscular Hemoglobin 28.7 pg (25.0-35.0); Mean Corpuscular Volume 90 fL (80-100); Monocytes # (Auto) 0.9 Thou/mm3 (0.0-0.8); Monocytes % (Auto) 9 % (0-12); Neutrophils # (Auto) 7.5 Thou/mm3 (1.8-7.7); Neutrophils % (Auto) 78 % (37-80); Nucleated Red Blood Cell # 0.00 Thou/mm3 (0.00-0.00); Nucleated Red Blood Cell % 0 /100 WBC (0); Platelet Count 188 Thou/mm3 (140-440); RDW Standard Deviation 48.9 fL (35.1-43.9); Red Blood Count 4.22 Miln/mm3 (4.50-5.90); White Blood Count 9.6 Thou/mm3 (3.8-10.6)
[2025-10-03 06:48] LABS: Alanine Aminotransferase 18 U/L (10-49); Albumin, Serum 3.6 gm/dL (3.4-4.8); Albumin/Globulin Ratio 1.4 (1.2-2.2); Alkaline Phosphatase 60 U/L (46-116); Anion Gap 10 (7-16); Aspartate Amino Transferase 15 U/L (0-34); BUN/Creatinine Ratio 13 Ratio (12-20); Bilirubin,Total 2.9 mg/dL (0.3-1.2); Blood Urea Nitrogen 10 mg/dL (9-23); Calcium 8.8 mg/dL (8.3-10.6); Calcium (Corrected) 9.1 mg/dL (8.5-10.1); Carbon Dioxide 29.4 mMol/L (20.0-31.0); Cardiac Risk Estimate 2.8 RATIO (4.0-6.7); Chloride 103 mMol/L (98-107); Cholesterol 108 mg/dL (132-200); Creatinine (Component) 0.8 mg/dL (0.6-1.3); Digoxin 0.8 ng/mL (0.8-2.0); Estimated Creatinine Clearance 120.9 mL/min (>60); Globulin 2.6 gm/dL (2.3-3.5); Glucose 112 mg/dL (74-106); HDL Cholesterol 39 mg/dL (40-60); LDL Cholesterol,Calculated 58 mg/dL (0-130); Magnesium 1.8 mg/dL (1.6-2.6); Osmolality,Calculated 283 (275-295); Potassium 3.2 mMol/L (3.4-5.1); Sodium 142 mMol/L (136-145); Total Protein 6.2 gm/dL (5.7-8.2); Triglycerides 56 mg/dL (30-150); eGFR > 60 See Note
[2025-10-03 08:33] LABS: Phosphorous 3.1 mg/dL (2.4-5.1)
--- NOTE | 2025-10-03 09:23 | ESPR_ITS ---
<Statement entered by Ted Goldberg MD - 10/03/25 16:05> I saw and examined patient personally and supervised PGY 1 resident, Dr. Wray with formulating a management plan. I agree with the documentation with the exceptions as listed below. Patient admitted for CHF exacerbation. Negative fluid balance of 1202 cc in past 24 hours. On diuresis with Bumex 2 Mg IV twice daily. Electrolytes were repleted. Patient endorses much improvement of his shortness of breath and lower extremity edema, however complained of not sleeping well due to having to wake up frequently to pee. Will place a condom catheter at night only. Anticipate discharge within next 24 to 48 hours. Plan of care discussed with Attending Dr. Francine Goldberg MD PGY 2 Disclaimer: This note was dictated by speech recognition. Minor errors in clinical therapist may be present due to voice recognition software. Documentation for date of: 10/03/25 Subjective Subjective Interval history: Patient seen and examined at bedside; in isolation with airborne precautions due to refusal to take COVID and MRSA testing. 1200ml out overnight. Still has anasarca to abdomen. Reports improved breathing. Exam Vital Signs Temp Pulse Resp BP Pulse Ox O2 Del Method O2 Flow Rate 97.9 F 96 20 127/81 99 Nasal Cannula 4 10/03/25 03:59 10/03/25 04:27 10/03/25 03:59 10/03/25 03:59 10/03/25 03:59 10/03/25 03:59 10/03/25 03:59 Narrative Exam GENERAL: AOx3, no acute distress HEENT: mucous membranes moist, bilateral sclera anicteric CARDIOVASCULAR: regular rate and rhythm, S1/S2 present, 2/6 systolic murmur PULMONARY: clear to auscultation bilaterally, no rales/rhonchi/wheezes ABDOMINAL: soft, no rebound/guarding, bowel sounds present, anasarca to lower abdomen EXTREMITIES: 3+ pitting edema bilaterally (anascara to abdomen), R thumb amputated although nail remains SKIN: warm and dry, intact, no rashes NEURO: CN II-XII grossly intact, no focal deficits, alert, following commands Objective Labs 10/04/25 04:52 10/04/25 04:52 Labs: Laboratory Results - last 24 hr 10/02/25 10/02/25 10/03/25 07:30 11:20 00:02 WBC RBC Hgb Hct MCV MCH MCHC RDW Std Deviation Plt Count Neut % (Auto) Lymph % (Auto) [place] % (Auto) Eos % (Auto) Baso % (Auto) Neut # (Auto) Lymph # (Auto) [place] # (Auto) Eos # (Auto) Baso # (Auto) Immature Gran # (Auto) Absolute Nucleated RBC Immature Gran % Nucleated RBC % Sodium Potassium Chloride Carbon Dioxide Anion Gap BUN Creatinine Estim Creat Clear Calc eGFR BUN/Creatinine Ratio Glucose Calculated Osmolality Calcium Corrected Calcium Phosphorus Magnesium Total Bilirubin AST ALT Alkaline Phosphatase Troponin I 0.076 H* Total Protein Albumin Globulin Albumin/Globulin Ratio Triglycerides Cholesterol LDL Cholesterol, Calc HDL Cholesterol Cholesterol/HDL Ratio Free T4 1.47 Free T3 pg/dL 3.2 Ur Collection Type Clean Catch Urine Color Colorless A Urine Clarity Clear Urine pH 8.0 H Ur Specific [place] 1.008 Urine Protein Negative Urine Glucose (UA) Negative Urine Ketones Negative Urine Blood Negative Urine Nitrite Negative Urine Bilirubin Negative Urine Urobilinogen (Auto) Negative Ur Leukocyte Esterase Negative Urine RBC 6 H Urine WBC < 1 Ur Squamous Epith Cells 0 Urine Bacteria None Ur Culture Indicated? Not Indicated Digoxin 10/03/25 05:29 WBC 9.6 RBC 4.22 L Hgb 12.1 L Hct 38.0 L MCV 90 MCH 28.7 MCHC 31.8 RDW Std Deviation 48.9 H Plt Count 188 D Neut % (Auto) 78 Lymph % (Auto) 11 [place] % (Auto) 9 Eos % (Auto) 1 Baso % (Auto) 1 Neut # (Auto) 7.5 Lymph # (Auto) 1.1 [place] # (Auto) 0.9 H Eos # (Auto) 0.1 Baso # (Auto) 0.1 Immature Gran # (Auto) 0.04 H Absolute Nucleated RBC 0.00 Immature Gran % 0 Nucleated RBC % 0 Sodium 142 Potassium 3.2 L Chloride 103 Carbon Dioxide 29.4 Anion Gap 10 BUN 10 Creatinine 0.8 Estim Creat Clear Calc 120.9 eGFR > 60 BUN/Creatinine Ratio 13 Glucose 112 H Calculated Osmolality 283 Calcium 8.8 Corrected Calcium 9.1 Phosphorus 3.1 Magnesium 1.8 Total Bilirubin 2.9 H D AST 15 ALT 18 Alkaline Phosphatase 60 D Troponin I Total Protein 6.2 Albumin 3.6 D Globulin 2.6 Albumin/Globulin Ratio 1.4 Triglycerides 56 Cholesterol 108 L LDL Cholesterol, Calc 58 HDL Cholesterol 39 L Cholesterol/HDL Ratio 2.8 L Free T4 Free T3 pg/dL Ur Collection Type Urine Color Urine Clarity Urine pH Ur Specific [place] Urine Protein Urine Glucose (UA) Urine Ketones Urine Blood Urine Nitrite Urine Bilirubin Urine Urobilinogen (Auto) Ur Leukocyte Esterase Urine RBC Urine WBC Ur Squamous Epith Cells Urine Bacteria Ur Culture Indicated? Digoxin 0.8 Quality Measures Quality Measures none Assessment & Plan Assessment Current Active Medications: Generic Name Dose Route Start Last Admin Trade Name Freq PRN Reason Stop Dose Admin Acetaminophen 650 mg 10/02/25 10:42 Acetaminophen 325 Mg Tablet PO 11/01/25 10:41 Q6H PRN Fever >100.4 or pain Apixaban 5 mg 10/02/25 11:00 10/02/25 20:33 Apixaban 2.5 Mg Tablet PO 11/01/25 10:59 5 mg BID KATINA Administration Bumetanide 2 mg 10/02/25 21:00 10/02/25 20:34 Bumetanide Inj 0.25 Mg/Ml Vial 4 Ml IVP 11/01/25 20:59 2 mg BID KATINA Administration Digoxin 0.25 mg 10/03/25 09:00 Digoxin 0.125 Mg Tablet PO 11/02/25 08:59 QDAY KATINA Metoprolol Succinate 100 mg 10/03/25 09:00 Metoprolol Succinate Xl 25 Mg Tabcr PO 11/02/25 08:59 QAM KATINA Metoprolol Succinate 50 mg 10/02/25 21:00 10/02/25 20:33 Metoprolol Succinate Xl 25 Mg Tabcr PO 11/01/25 20:59 50 mg HS KATINA Administration Sennosides 1 tab 10/02/25 10:42 Senna Tablet PO 11/01/25 10:41 QDAY PRN constipation Protocol Plan Rocael Doe 65M pmhx significant for HFrEF (20-25%) with severe systolic dysfunction, atrial fibrillation on Eliquis with hx of RVR, right thumb amputation, DDD of spine, right C6 denervation DDD, chronic back pain, and R C6 dennervation who presents with progressive anascara and SOB, admitted for acute on chronic HFrEF exacerbation. #Acute on chronic HFrEF (20-25%), NYHA III #Bilateral pleural effusion #NSTEMI type II #Metabolic alkalosis, likely contraction 2/2 diuresis Presents with abdominal pain due to progressive anascarca, SOB with inc in O2 requirement, dyspnea on exertion, orthopnea, and PND. BNP 1k, trop 0.076 flat x2. Recently dx with HFrEF in 08/2025, unknown cause, denies [place], substance use or strong family hx. Follows Dr. Nathan outpatient, last saw 10/01 and was prescribed Bumex and Entresto, but has yet to start. Echo 09/21/25: LV size mildly enlarged with systolic function severely reduced, estimated EF 2024%, G2DD, RV size and systolic function normal, estimated RVSP 37 mmHg, moderate AV sclerosis without stenosis and mild regurgitation, mild to moderate MVR and TVR, LA severely enlarged, RA moderately enlarged, dilated IVC, trivial pericardial effusion CXR: moderate CHF, prominent L pleural effusion. C/A/P CTA: mild HF, PNA L base, b/l large pleural effusion, cirrhosis, mild ascities, distended GB, colonic diverticulosis. Abd US: normal GB Possible inadequate diuresis since previous discharge. s/p acetazolamide 10/02 Plan: - Cardiology consulted, recs appreciated: hold Entresto to account for BP with aggressive diuresis - IV Bumex 2 mg BID with goal net negative 2-3L negative within 24h - CTM for contraction alkalosis and kidney fx - Strict I&Os, daily weights, 1.5L fluid restriction - Keep K>4 and Mg>2 at all times - If pleural effusions persistent following adequate diuresis, consider thoracentsis - Place condom catheter at night to prevent multiple bathroom trips #Atrial fibrillation #Hx of atrial fibrillation RVR Recently diagnosed with atrial fibrillation during 08/2025 admission. EKG shows atrial fibrillation rate 93. Digoxin level 0.8 on 10/03/25 Plan: - Cardiology consulted, recs appreciated- continue home Eliquis 5 mg BID, Continue home metoprolol XL 100 mg qAM and 50 mg qhs, and digoxin 0.25 mg QD Hospital management: Lines: PIV Diet: cardiac, low sodium, 1.5L fluid restriction Bowel: not indicated GI prophylaxis: senna prn DVT prophylaxis: Eliquis 5 mg BID Disposition: tele, IV diuresis CODE STATUS: FULL CODE This case was discussed with my attending physician, Dr. Escamilla, and senior resident, Dr. Goldberg. Jimy Wray, PGY1 Attending Provider Attestation/Addendum I have discussed and was present for the essential components of the history, physical examination, diagnosis, and treatment plan with the resident. I agree with the patient's care as documented by the resident and amended herein by me. Jovan Escamilla, DO. Although this document has been carefully reviewed, there may still be some phonetic and other typographical errors. These errors are purely grammatical due to imperfections in the software program and should not be construed in any way to compromise the substance of the patient's medical care during this visit.
--- NOTE | 2025-10-03 09:32 | PD.RESPRO ---
Documentation for date of: 10/03/25 Subjective Subjective Interval history: 65-year-old male admitted for acute decompensated heart failure. Patient seen and examined at bedside today, reports leg swelling has improved, reports some improvement in shortness of breath as well, patient on 4 L nasal cannula. Patient denies any chest pain. Patient does have significant history of secondhand smoke exposure, no PFTs done outpatient, no wheezing noted, some wheezing in the left lower lung however possible element of cardiac wheezing secondary to fluid. Patient to trial DuoNeb, should obtain PFTs outpatient. For COPD criteria patient's symptoms can be secondary to the heart failure does have cough, no increased mucus production. Patient is -1.2 L in the last 24 hours, was somewhat noncompliant with fluid restriction outpatient. Patient's potassium and magnesium were repleted aggressively today. Continue diuresis with Bumex 2 mg twice daily, goal negative for hospitalization 3 to 5 L. Patient's heart rate well-controlled on metoprolol and digoxin regimen, continue current regimen, renal function within normal limits. Digoxin level was checked outpatient was within normal limits, digoxin level today is 0.8. Exam Vital Signs Temp Pulse Resp BP Pulse Ox O2 Del Method O2 Flow Rate 97.9 F 67 17 127/81 97 Nasal Cannula 4 10/03/25 03:59 10/03/25 09:24 10/03/25 09:24 10/03/25 03:59 10/03/25 09:24 10/03/25 03:59 10/03/25 09:24 Narrative Exam GENERAL: AOx3, no acute distress HEENT: mucous membranes moist, bilateral sclera anicteric CARDIOVASCULAR: regular rate and rhythm, S1/S2 present, 2/6 murmur mitral region. PULMONARY: clear to auscultation bilaterally, no rales/rhonchi/wheezes ABDOMINAL: soft, no rebound/guarding, bowel sounds present, moderate distension of lower abdomen also TTP EXTREMITIES: 3+ pitting edema BLE, R thumb amputated although nail remains SKIN: warm and dry, intact, no rashes NEURO: CN II-XII grossly intact, no focal deficits, alert, following commands Objective Labs 10/04/25 04:52 10/04/25 04:52 Labs: Laboratory Results - last 24 hr 10/02/25 10/02/25 10/03/25 07:30 11:20 00:02 WBC RBC Hgb Hct MCV MCH MCHC RDW Std Deviation Plt Count Neut % (Auto) Lymph % (Auto) [place] % (Auto) Eos % (Auto) Baso % (Auto) Neut # (Auto) Lymph # (Auto) [place] # (Auto) Eos # (Auto) Baso # (Auto) Immature Gran # (Auto) Absolute Nucleated RBC Immature Gran % Nucleated RBC % Sodium Potassium Chloride Carbon Dioxide Anion Gap BUN Creatinine Estim Creat Clear Calc eGFR BUN/Creatinine Ratio Glucose Calculated Osmolality Calcium Corrected Calcium Phosphorus Magnesium Total Bilirubin AST ALT Alkaline Phosphatase Troponin I 0.076 H* Total Protein Albumin Globulin Albumin/Globulin Ratio Triglycerides Cholesterol LDL Cholesterol, Calc HDL Cholesterol Cholesterol/HDL Ratio Free T4 1.47 Free T3 pg/dL 3.2 Ur Collection Type Clean Catch Urine Color Colorless A Urine Clarity Clear Urine pH 8.0 H Ur Specific [place] 1.008 Urine Protein Negative Urine Glucose (UA) Negative Urine Ketones Negative Urine Blood Negative Urine Nitrite Negative Urine Bilirubin Negative Urine Urobilinogen (Auto) Negative Ur Leukocyte Esterase Negative Urine RBC 6 H Urine WBC < 1 Ur Squamous Epith Cells 0 Urine Bacteria None Ur Culture Indicated? Not Indicated Digoxin 10/03/25 05:29 WBC 9.6 RBC 4.22 L Hgb 12.1 L Hct 38.0 L MCV 90 MCH 28.7 MCHC 31.8 RDW Std Deviation 48.9 H Plt Count 188 D Neut % (Auto) 78 Lymph % (Auto) 11 [place] % (Auto) 9 Eos % (Auto) 1 Baso % (Auto) 1 Neut # (Auto) 7.5 Lymph # (Auto) 1.1 [place] # (Auto) 0.9 H Eos # (Auto) 0.1 Baso # (Auto) 0.1 Immature Gran # (Auto) 0.04 H Absolute Nucleated RBC 0.00 Immature Gran % 0 Nucleated RBC % 0 Sodium 142 Potassium 3.2 L Chloride 103 Carbon Dioxide 29.4 Anion Gap 10 BUN 10 Creatinine 0.8 Estim Creat Clear Calc 120.9 eGFR > 60 BUN/Creatinine Ratio 13 Glucose 112 H Calculated Osmolality 283 Calcium 8.8 Corrected Calcium 9.1 Phosphorus 3.1 Magnesium 1.8 Total Bilirubin 2.9 H D AST 15 ALT 18 Alkaline Phosphatase 60 D Troponin I Total Protein 6.2 Albumin 3.6 D Globulin 2.6 Albumin/Globulin Ratio 1.4 Triglycerides 56 Cholesterol 108 L LDL Cholesterol, Calc 58 HDL Cholesterol 39 L Cholesterol/HDL Ratio 2.8 L Free T4 Free T3 pg/dL Ur Collection Type Urine Color Urine Clarity Urine pH Ur Specific [place] Urine Protein Urine Glucose (UA) Urine Ketones Urine Blood Urine Nitrite Urine Bilirubin Urine Urobilinogen (Auto) Ur Leukocyte Esterase Urine RBC Urine WBC Ur Squamous Epith Cells Urine Bacteria Ur Culture Indicated? Digoxin 0.8 Quality Measures Quality Measures none Assessment & Plan Assessment Current Active Medications: Generic Name Dose Route Start Last Admin Trade Name Freq PRN Reason Stop Dose Admin Acetaminophen 650 mg 10/02/25 10:42 Acetaminophen 325 Mg Tablet PO 11/01/25 10:41 Q6H PRN Fever >100.4 or pain Apixaban 5 mg 10/02/25 11:00 10/02/25 20:33 Apixaban 2.5 Mg Tablet PO 11/01/25 10:59 5 mg BID KATINA Administration Bumetanide 2 mg 10/02/25 21:00 10/02/25 20:34 Bumetanide Inj 0.25 Mg/Ml Vial 4 Ml IVP 11/01/25 20:59 2 mg BID KATINA Administration Digoxin 0.25 mg 10/03/25 09:00 Digoxin 0.125 Mg Tablet PO 11/02/25 08:59 QDAY KATINA Magnesium Sulfate 4 gm in 50 mls @ 12.5 mls/hr 10/03/25 09:28 Magnesium Sulfate Ivpb IV 10/03/25 13:27 X1 ONE Metoprolol Succinate 100 mg 10/03/25 09:00 Metoprolol Succinate Xl 25 Mg Tabcr PO 11/02/25 08:59 QAM KATINA Metoprolol Succinate 50 mg 10/02/25 21:00 10/02/25 20:33 Metoprolol Succinate Xl 25 Mg Tabcr PO 11/01/25 20:59 50 mg HS KATINA Administration Sennosides 1 tab 10/02/25 10:42 Senna Tablet PO 11/01/25 10:41 QDAY PRN constipation Protocol Plan Assessment and plan: Summary: Mr. Doe is a 65-year-old male with past medical history of combined systolic and diastolic heart failure, HFrEF EF 20 to 25%, suspected LV thrombus, atrial fibrillation on Eliquis, NSVT, right thumb amputation, DDD of spine, right C6 denervation, significant secondhand smoke exposure and iron deficiency anemia admitted to [facility] for management of acute decompensated heart failure. Cardiology consulted as patient is known to practice and for management of heart failure. #Acute decompensated heart failure #Combined systolic and diastolic heart failure, EF 20 to 25% (08/2025), and NHYA class III #Bilateral Pleural effusion #Iron deficiency anemia Presented to hospital due to worsening SOB, PND, orthpnea with +3 pitting edema of bilateral Lower extremity On admission, Troponin 0.076, BNP: 1039. Chest x-ray showed moderate heart failure, prominent left pleural effusion. CTA chest abdomen pelvis negative for PE, shows mild heart failure, large bilateral pleural effusion, cirrhosis, mild ascites and distended gallbladder. Patient was seen in clinic earlier this week, was started on Entresto 0.5 p.o. twice daily and was switched from Lasix 40 daily to Bumex 2 mg daily however patient had not started taking Bumex prior to admission. Iron panel 09/08/2025?iron 15, TIBC 307, iron saturation 4, iron sat iron binding 292 ferritin 65 Bicarb improved today, elevated bicarb 33.1 noted 10/02, was given acetazolamide x 1 Transthoracic echocardiogram 09/21/2025: -Left ventricle size is mildly enlarged and systolic function is severely reduced. Estimated ejection fraction is 20-25%. There is grade II diastolic dysfunction. Cannot rule out Small LV thrombus. Will need echo contrast study which is not available here. -Right ventricle chamber size is normal and systolic function is normal. Estimated RVSP is 37 mmHg. mildly elevated RVSP. -There is moderate aortic valve sclerosis with no stenosis and mild regurgitation. -There is mild to moderate mitral and tricuspid valve regurgitation. -The left atrium is severely enlarged. The right atrium is moderately enlarged. -Dilated IVC with estimated RA pressure 15 mmHg. -There is trivial pericardial effusion with no tamponade. Recommendations: - Recommend continuing Bumex 2 mg twice daily. - Strict intake and output - Fluid restriction 1500 cc - Daily weight - Cardiac, low-sodium diet - Continue metoprolol succinate, start on Entresto as blood pressure tolerates once exacerbation has improved. - Patient will need close outpatient follow-up, highly recommend appointment within 1 week of discharge and will uptitrate GDMT outpatient as tolerates. - IV iron replacement, Venofer 200 x 1, to reduce exacerbations and improve mortality. - Due to history of secondhand smoke exposure will benefit from PFTs outpatient to rule out COPD. #Atrial fibrillation, rate controlled #?Suspected small LV thrombus #Nonsustained ventricular tachycardia, by history Patient admitted in August for A-fib RVR, was started on metoprolol tartrate 100 mg every morning and 50 mg nightly. Rate is well-controlled. Patient was started on digoxin as well during the prior admission, digoxin levels within normal limits, dig level this morning 0.8. Patient had NSVT runs for about 20 seconds on telemetry on 09/11/2025. No further episodes were noted after patient was started on metoprolol and digoxin. Echocardiogram during the prior visit was not able to rule out small LV thrombus. [id number] score 2 points, HAS BLED score 2 points Recommendations: - Continue metoprolol 100 mg daily and 50 mg at bedtime - Continue digoxin at 0.25 mg - Continue Eliquis 5 mg twice daily - Continue telemetry monitoring - Patient will need outpatient Holter monitoring to assess for A-fib burden and ECHO-contrast study to rule out LV thrombus. #NSTEMI type II, likely demand ischemia Patient denies any chest pain, presented with elevated troponin 0.076 -> 0.076. EKG on presentation shows no acute ST-T changes, atrial fibrillation rate controlled, Q waves noted in V3 V4 Patient's troponin elevation likely secondary to CHF exacerbation. Lipid panel 10/03/2025 shows?triglyceride 56, cholesterol 108, LDL 58, HDL 39, cholesterol/HDL ratio 2.8 TSH 10/02 0.52, free T41.47, hemoglobin A1c 6.0 Patient does have risk factor for CAD: Hypertension, dyslipidemia, morbid obesity, secondhand smoke exposure, family history of heart disease ASCVD risk score: 9.4%, moderate to high intensity statin recommended Recommendations: - Monitor for chest pain - Start high intensity statin, atorvastatin 40 mg at bedtime - Patient will need ischemia workup outpatient, last recent echocardiogram was negative for any wall motion abnormalities. Will schedule patient outpatient for stress test and possible cardiac catheterization. #Hypertension - Recommendations as above, continue metoprolol consider adding Entresto as blood pressure tolerates. #Imaging finding of liver cirrhosis, suspected MASLD #Hyperbilirubinemia Management as per primary team Thank you for the consult and allowing to participate in the care of the patient. Cardiology will continue to follow. Case discussed with Attending Physician Dr. Marcus Horner MD Internal Medicine PGY-2 Disclaimer: This note was dictated by speech recognition. Minor errors in sql ssrs ssis developer may be present due to voice recognition software. Attending Provider Attestation/Addendum I have personally seen and examined the patient separately on the above date of service and discussed the plan of care with the resident. I reviewed the resident Dr. Ryder Horner consultation progress note and agree with the resident findings and plan in the note above and have also edited the documentation to reflect my findings and plan. Marcus Nathan M.D. Interventional Cardiology
[2025-10-03] MEDS: POTASSIUM CHLORIDE 10% 20 MEQ/15 ML UDC 40 MEQ PO (09:34)
[2025-10-03] MEDS: BUMETANIDE INJ 0.25 MG/ML VIAL 4 ML 2 MG IVP ×2 (09:34→20:50)
[2025-10-03] MEDS: DIGOXIN 0.125 MG TABLET 0.25 MG PO (09:35)
[2025-10-03] MEDS: METOPROLOL SUCCINATE XL 25 MG TABCR 100 MG PO (09:35)
[2025-10-03] MEDS: APIXABAN 2.5 MG TABLET 5 MG PO ×2 (09:36→20:46)
[2025-10-03] MEDS: Magnesium Sulfate 4 GM Ivpb 4 GM/50 ML BAG IV (09:50)
--- NOTE | 2025-10-03 11:35 | PC.SS ---
This is 65-year-old, male who presented to the ED due to suffering from shortness of breath. Patient appeared alert and oriented to self, place and situation. Patient reported that prior to admission, he was residing with his son. Patient reported that he uses oxygen at home. Patient reported that also uses a cane. Patient has no PCP. Patient assigned his son, Cecil, as his medical decision maker. When patient is medically clear, patient will return home; Cecil will provide transportation to return home.
[2025-10-03] MEDS: IRON SUCROSE CPLX INJ 20 MG/ML VIAL 5 ML 200 MG IVP (11:58)
[2025-10-03] MEDS: ACETAMINOPHEN 325 MG TABLET 650 MG PO (11:59)
[2025-10-03] MEDS: ATORVASTATIN CALCIUM 20 MG TABLET 40 MG PO (20:46)
[2025-10-03] MEDS: METOPROLOL SUCCINATE XL 25 MG TABCR 50 MG PO (20:46)
[2025-10-04] VITALS (12 sets, daily range): BP systolic 111–124; BP diastolic 69–90; PULSE 74–113; RESP 18–22; TEMP 36.3–36.7; O2SAT 97–100; BMI 43.8
[2025-10-04 06:25] LABS: Basophils # (Auto) 0.1 Thou/mm3 (0.0-0.2); Basophils % (Auto) 1 % (0-2.5); Eosinophils # (Auto) 0.2 Thou/mm3 (0.0-0.5); Eosinophils % (Auto) 3 % (0-10); Hematocrit 38.0 % (41.0-53.0); Hemoglobin 12.0 g/dL (13.5-16.0); Immature Granulocytes Auto 0.02 Thou/mm3 (0.00-0.00); Lymphocytes # (Auto) 1.0 Thou/mm3 (1.0-4.8); Lymphocytes % (Auto) 12 % (10-50); Mean Corpuscular HGB Conc 31.6 g/dl (31.0-37.0); Mean Corpuscular Hemoglobin 28.3 pg (25.0-35.0); Mean Corpuscular Volume 90 fL (80-100); Monocytes # (Auto) 0.8 Thou/mm3 (0.0-0.8); Monocytes % (Auto) 9 % (0-12); Neutrophils # (Auto) 6.0 Thou/mm3 (1.8-7.7); Neutrophils % (Auto) 75 % (37-80); Nucleated Red Blood Cell # 0.00 Thou/mm3 (0.00-0.00); Nucleated Red Blood Cell % 0 /100 WBC (0); Platelet Count 205 Thou/mm3 (140-440); RDW Standard Deviation 47.8 fL (35.1-43.9); Red Blood Count 4.24 Miln/mm3 (4.50-5.90); White Blood Count 8.0 Thou/mm3 (3.8-10.6)
[2025-10-04 07:16] LABS: Alanine Aminotransferase 17 U/L (10-49); Albumin, Serum 3.8 gm/dL (3.4-4.8); Albumin/Globulin Ratio 1.5 (1.2-2.2); Alkaline Phosphatase 65 U/L (46-116); Anion Gap 10 (7-16); Aspartate Amino Transferase < 10 U/L (0-34); BUN/Creatinine Ratio 16 Ratio (12-20); Bilirubin,Total 1.7 mg/dL (0.3-1.2); Blood Urea Nitrogen 16 mg/dL (9-23); Calcium 9.2 mg/dL (8.3-10.6); Calcium (Corrected) 9.4 mg/dL (8.5-10.1); Carbon Dioxide 30.6 mMol/L (20.0-31.0); Chloride 102 mMol/L (98-107); Creatinine (Component) 1.0 mg/dL (0.6-1.3); Estimated Creatinine Clearance 96.7 mL/min (>60); Globulin 2.6 gm/dL (2.3-3.5); Glucose 93 mg/dL (74-106); Magnesium 2.3 mg/dL (1.6-2.6); Osmolality,Calculated 286 (275-295); Potassium 3.6 mMol/L (3.4-5.1); Sodium 143 mMol/L (136-145); Total Protein 6.4 gm/dL (5.7-8.2); eGFR > 60 See Note
[2025-10-04] MEDS: METOPROLOL SUCCINATE XL 25 MG TABCR 100 MG PO (08:30)
[2025-10-04] MEDS: APIXABAN 2.5 MG TABLET 5 MG PO ×2 (08:31→20:45)
[2025-10-04] MEDS: BUMETANIDE INJ 0.25 MG/ML VIAL 4 ML 2 MG IVP ×2 (08:31→20:46)
[2025-10-04] MEDS: DIGOXIN 0.125 MG TABLET 0.25 MG PO (08:31)
--- NOTE | 2025-10-04 09:05 | ESPR_ITS ---
Documentation for date of: 10/04/25 Subjective Subjective Interval history: No Overnight events. Labs reviewed and patient examined at the bedside. UoP 2.3 L yesterday. Continue on Eliquis po 5mg po bid, Atorvastatin 40mg po HS, Digoxin 0.25 mg po qd, Metoprolol succinate 100mg po qam and 50mg po HS, and IV bumex 2mg bid. Patient is still in afib, Planned for OLI and Cardioversion tomorrow. NPO after midnight. Exam Vital Signs Temp Pulse Resp BP Pulse Ox O2 Del Method O2 Flow Rate 97.6 F 74 18 112/75 97 Nasal Cannula 4 10/04/25 08:00 10/04/25 08:31 10/04/25 08:00 10/04/25 08:31 10/04/25 08:00 10/04/25 04:00 10/04/25 07:43 Narrative Exam GENERAL: AOx3, no acute distress HEENT: mucous membranes moist, bilateral sclera anicteric CARDIOVASCULAR: regular rate and rhythm, S1/S2 present, 2/6 murmur mitral region. PULMONARY: clear to auscultation bilaterally, no rales/rhonchi/wheezes ABDOMINAL: soft, no rebound/guarding, bowel sounds present, moderate distension of lower abdomen also TTP EXTREMITIES: 2+ pitting edema BLE, R thumb amputated although nail remains SKIN: warm and dry, intact, no rashes NEURO: CN II-XII grossly intact, no focal deficits, alert, following commands Objective Labs 10/04/25 04:52 10/04/25 04:52 Labs: Laboratory Results - last 24 hr 10/04/25 04:52 WBC 8.0 RBC 4.24 L Hgb 12.0 L Hct 38.0 L MCV 90 MCH 28.3 MCHC 31.6 RDW Std Deviation 47.8 H Plt Count 205 Neut % (Auto) 75 Lymph % (Auto) 12 [place] % (Auto) 9 Eos % (Auto) 3 Baso % (Auto) 1 Neut # (Auto) 6.0 Lymph # (Auto) 1.0 [place] # (Auto) 0.8 Eos # (Auto) 0.2 Baso # (Auto) 0.1 Immature Gran # (Auto) 0.02 H Absolute Nucleated RBC 0.00 Immature Gran % 0 Nucleated RBC % 0 Sodium 143 Potassium 3.6 Chloride 102 Carbon Dioxide 30.6 Anion Gap 10 BUN 16 Creatinine 1.0 Estim Creat Clear Calc 96.7 eGFR > 60 BUN/Creatinine Ratio 16 Glucose 93 Calculated Osmolality 286 Calcium 9.2 Corrected Calcium 9.4 Magnesium 2.3 Total Bilirubin 1.7 H D AST < 10 ALT 17 Alkaline Phosphatase 65 Total Protein 6.4 Albumin 3.8 Globulin 2.6 Albumin/Globulin Ratio 1.5 Quality Measures Quality Measures none Assessment & Plan Assessment Current Active Medications: Generic Name Dose Route Start Last Admin Trade Name Freq PRN Reason Stop Dose Admin Acetaminophen 650 mg 10/02/25 10:42 10/03/25 11:59 Acetaminophen 325 Mg Tablet PO 11/01/25 10:41 650 mg Q6H PRN Administration Fever >100.4 or pain Albuterol/Ipratropium 3 ml 10/03/25 09:51 Albuterol/Ipratropium (Duoneb) Rt Vonda 3 Ml Nebu INH 11/02/25 10:59 Q4HRRT PRN wheezing Apixaban 5 mg 10/02/25 11:00 10/04/25 08:31 Apixaban 2.5 Mg Tablet PO 11/01/25 10:59 5 mg BID KATINA Administration Atorvastatin Calcium 40 mg 10/03/25 21:00 10/03/25 20:46 Atorvastatin Calcium 20 Mg Tablet PO 11/02/25 20:59 40 mg HS KATINA Administration Bumetanide 2 mg 10/02/25 21:00 10/04/25 08:31 Bumetanide Inj 0.25 Mg/Ml Vial 4 Ml IVP 11/01/25 20:59 2 mg BID KATINA Administration Digoxin 0.25 mg 10/03/25 09:00 10/04/25 08:31 Digoxin 0.125 Mg Tablet PO 11/02/25 08:59 0.25 mg QDAY KATINA Administration Metoprolol Succinate 100 mg 10/03/25 09:00 10/04/25 08:30 Metoprolol Succinate Xl 25 Mg Tabcr PO 11/02/25 08:59 100 mg QAM KATINA Administration Metoprolol Succinate 50 mg 10/02/25 21:00 10/03/25 20:46 Metoprolol Succinate Xl 25 Mg Tabcr PO 11/01/25 20:59 50 mg HS KATINA Administration Sennosides 1 tab 10/02/25 10:42 Senna Tablet PO 11/01/25 10:41 QDAY PRN constipation Protocol Plan Mr. Doe is a 65-year-old male with past medical history of combined systolic and diastolic heart failure, HFrEF EF 20 to 25%, suspected LV thrombus, atrial fibrillation on Eliquis, NSVT, right thumb amputation, DDD of spine, right C6 denervation, significant secondhand smoke exposure and iron deficiency anemia admitted to [facility] for management of acute decompensated heart failure. Cardiology consulted as patient is known to practice and for management of heart failure. #Acute decompensated heart failure #Combined systolic and diastolic heart failure, EF 20 to 25% (08/2025), and NHYA class III #Bilateral Pleural effusion #Iron deficiency anemia Presented to hospital due to worsening SOB, PND, orthpnea with +3 pitting edema of bilateral Lower extremity On admission, Troponin 0.076, BNP: 1039. Chest x-ray showed moderate heart failure, prominent left pleural effusion. CTA chest abdomen pelvis negative for PE, shows mild heart failure, large bilateral pleural effusion, cirrhosis, mild ascites and distended gallbladder. Patient was seen in clinic earlier this week, was started on Entresto 0.5 p.o. twice daily and was switched from Lasix 40 daily to Bumex 2 mg daily however patient had not started taking Bumex prior to admission. Iron panel 09/08/2025?iron 15, TIBC 307, iron saturation 4, iron sat iron binding 292 ferritin 65 Bicarb improved today, elevated bicarb 33.1 noted 10/02, was given acetazolamide x 1 Transthoracic echocardiogram 09/21/2025: -Left ventricle size is mildly enlarged and systolic function is severely reduced. Estimated ejection fraction is 20-25%. There is grade II diastolic dysfunction. Cannot rule out Small LV thrombus. Will need echo contrast study which is not available here. -Right ventricle chamber size is normal and systolic function is normal. Estimated RVSP is 37 mmHg. mildly elevated RVSP. -There is moderate aortic valve sclerosis with no stenosis and mild regurgitation. -There is mild to moderate mitral and tricuspid valve regurgitation. -The left atrium is severely enlarged. The right atrium is moderately enlarged. -Dilated IVC with estimated RA pressure 15 mmHg. -There is trivial pericardial effusion with no tamponade. Recommendations: -Recommend continuing Bumex 2 mg twice daily. -Strict intake and output -Fluid restriction 1500 cc -Daily weight -Cardiac, low-sodium diet -Continue metoprolol succinate, start on Entresto as blood pressure tolerates once exacerbation has improved. -Patient will need close outpatient follow-up, highly recommend appointment within 1 week of discharge and will uptitrate GDMT outpatient as tolerates. -Due to history of secondhand smoke exposure will benefit from PFTs outpatient to rule out COPD. -Planned for OLI and Cardioversion tomorrow. #Atrial fibrillation, rate controlled #?Suspected small LV thrombus #Nonsustained ventricular tachycardia, by history Patient admitted in August for A-fib RVR, was started on metoprolol tartrate 100 mg every morning and 50 mg nightly. Rate is well-controlled. Patient was started on digoxin as well during the prior admission, digoxin levels within normal limits, dig level this morning 0.8. Patient had NSVT runs for about 20 seconds on telemetry on 09/11/2025. No further episodes were noted after patient was started on metoprolol and digoxin. Echocardiogram during the prior visit was not able to rule out small LV thrombus. [id number] score 2 points, HAS BLED score 2 points Recommendations: - Continue metoprolol 100 mg daily and 50 mg at bedtime - Continue digoxin at 0.25 mg - Continue Eliquis 5 mg twice daily - Continue telemetry monitoring - Patient will need outpatient Holter monitoring to assess for A-fib burden and ECHO-contrast study to rule out LV thrombus. - Patient is still in afib, Planned for OLI and Cardioversion tomorrow. NPO after midnight. #NSTEMI type II, likely demand ischemia Patient denies any chest pain, presented with elevated troponin 0.076 -> 0.076. EKG on presentation shows no acute ST-T changes, atrial fibrillation rate controlled, Q waves noted in V3 V4 Patient's troponin elevation likely secondary to CHF exacerbation. Lipid panel 10/03/2025 shows?triglyceride 56, cholesterol 108, LDL 58, HDL 39, cholesterol/HDL ratio 2.8 TSH 10/02 0.52, free T41.47, hemoglobin A1c 6.0 Patient does have risk factor for CAD: Hypertension, dyslipidemia, morbid obesity, secondhand smoke exposure, family history of heart disease ASCVD risk score: 9.4%, moderate to high intensity statin recommended Recommendations: - Monitor for chest pain - Start high intensity statin, atorvastatin 40 mg at bedtime - Patient will need ischemia workup outpatient, last recent echocardiogram was negative for any wall motion abnormalities. Will schedule patient outpatient for stress test and possible cardiac catheterization. #Hypertension - Recommendations as above, continue metoprolol consider adding Entresto as blood pressure tolerates. #Imaging finding of liver cirrhosis, suspected MASLD #Hyperbilirubinemia Management as per primary team Attending Provider Attestation/Addendum I have personally seen and examined the patient separately on the above date of service and discussed the plan of care with the resident. I reviewed the resident Dr. Robert Ames consultation progress note and agree with the resident findings and plan in the note above and have also edited the documentation to reflect my findings and plan. Marcus Nathan M.D. Interventional Cardiology
--- NOTE | 2025-10-04 09:51 | ESPR_ITS ---
<Statement entered by Ted Goldberg MD - 10/04/25 18:07> I saw and examined patient personally and supervised PGY 1 resident, Dr. Cifuentes with formulating a management plan. I agree with the documentation with the exceptions as listed below. Patient had -1610 fluid balance in past 24 hours. Continues to be on diuresis with Bumex 2 mg IV twice daily. Day 2 of Venofer IV for iron deficiency anemia to complete a total of 3 days. Interventional cardiology, Dr. Nathan was consulted who will carry patient tomorrow for OLI with +/- cardioversion. Plan of care discussed with Attending Dr. Francine Goldberg MD PGY 2 Disclaimer: This note was dictated by speech recognition. Minor errors in supervisor scrap preparation may be present due to voice recognition software. Documentation for date of: 10/04/25 Subjective Subjective Interval history: No acute overnight events. Patient seen and examined at bedside. Patient reports greatly improved shortness of breath and leg and abdominal swelling and resolution of abdominal pain. VSS. Potassium 3.6 repleted 40 mEq. Continue IV diuresis Bumex 2 mg twice daily. Anticipate discharge within the next 1 to 2 days. Exam Vital Signs Temp Pulse Resp BP Pulse Ox O2 Del Method O2 Flow Rate 97.6 F 74 18 112/75 97 Nasal Cannula 4 10/04/25 08:00 10/04/25 08:31 10/04/25 08:00 10/04/25 08:31 10/04/25 08:00 10/04/25 04:00 10/04/25 07:43 Narrative Exam GENERAL: AOx3, no acute distress, obese HEENT: mucous membranes moist, bilateral sclera anicteric CARDIOVASCULAR: regular rate and irregular rhythm, S1/S2 present, 2/6 systolic murmur PULMONARY: diminished breath sounds bilaterally improved since admission, bilateral crackles at base ABDOMINAL: soft, no rebound/guarding, bowel sounds present, improved anasarca to lower abdomen EXTREMITIES: 1+ pitting edema bilateral feet, trace pitting edema BLE, R thumb amputated although nail remains SKIN: warm and dry, intact, no rashes NEURO: CN II-XII grossly intact, no focal deficits, alert, following commands Objective Labs 10/04/25 04:52 10/04/25 04:52 Labs: Laboratory Results - last 24 hr 10/04/25 04:52 WBC 8.0 RBC 4.24 L Hgb 12.0 L Hct 38.0 L MCV 90 MCH 28.3 MCHC 31.6 RDW Std Deviation 47.8 H Plt Count 205 Neut % (Auto) 75 Lymph % (Auto) 12 [place] % (Auto) 9 Eos % (Auto) 3 Baso % (Auto) 1 Neut # (Auto) 6.0 Lymph # (Auto) 1.0 [place] # (Auto) 0.8 Eos # (Auto) 0.2 Baso # (Auto) 0.1 Immature Gran # (Auto) 0.02 H Absolute Nucleated RBC 0.00 Immature Gran % 0 Nucleated RBC % 0 Sodium 143 Potassium 3.6 Chloride 102 Carbon Dioxide 30.6 Anion Gap 10 BUN 16 Creatinine 1.0 Estim Creat Clear Calc 96.7 eGFR > 60 BUN/Creatinine Ratio 16 Glucose 93 Calculated Osmolality 286 Calcium 9.2 Corrected Calcium 9.4 Magnesium 2.3 Total Bilirubin 1.7 H D AST < 10 ALT 17 Alkaline Phosphatase 65 Total Protein 6.4 Albumin 3.8 Globulin 2.6 Albumin/Globulin Ratio 1.5 Quality Measures Quality Measures none Assessment & Plan Assessment Current Active Medications: Generic Name Dose Route Start Last Admin Trade Name Freq PRN Reason Stop Dose Admin Acetaminophen 650 mg 10/02/25 10:42 10/03/25 11:59 Acetaminophen 325 Mg Tablet PO 11/01/25 10:41 650 mg Q6H PRN Administration Fever >100.4 or pain Albuterol/Ipratropium 3 ml 10/03/25 09:51 Albuterol/Ipratropium (Duoneb) Rt Vonda 3 Ml Nebu INH 11/02/25 10:59 Q4HRRT PRN wheezing Apixaban 5 mg 10/02/25 11:00 10/04/25 08:31 Apixaban 2.5 Mg Tablet PO 11/01/25 10:59 5 mg BID KATINA Administration Atorvastatin Calcium 40 mg 10/03/25 21:00 10/03/25 20:46 Atorvastatin Calcium 20 Mg Tablet PO 11/02/25 20:59 40 mg HS KATINA Administration Bumetanide 2 mg 10/02/25 21:00 10/04/25 08:31 Bumetanide Inj 0.25 Mg/Ml Vial 4 Ml IVP 11/01/25 20:59 2 mg BID KATINA Administration Digoxin 0.25 mg 10/03/25 09:00 10/04/25 08:31 Digoxin 0.125 Mg Tablet PO 11/02/25 08:59 0.25 mg QDAY KATINA Administration Metoprolol Succinate 100 mg 10/03/25 09:00 10/04/25 08:30 Metoprolol Succinate Xl 25 Mg Tabcr PO 11/02/25 08:59 100 mg QAM KATINA Administration Metoprolol Succinate 50 mg 10/02/25 21:00 10/03/25 20:46 Metoprolol Succinate Xl 25 Mg Tabcr PO 11/01/25 20:59 50 mg HS KATINA Administration Sennosides 1 tab 10/02/25 10:42 Senna Tablet PO 11/01/25 10:41 QDAY PRN constipation Protocol Plan Rocael Doe 65M pmhx significant for HFrEF (20-25%) with severe systolic dysfunction, atrial fibrillation on Eliquis with hx of RVR, right thumb amputation, DDD of spine, right C6 denervation DDD, chronic back pain, and R C6 dennervation who presents with progressive anascara and SOB, admitted for acute on chronic HFrEF exacerbation. #Acute on chronic HFrEF (20-25%), NYHA III #Bilateral pleural effusion #NSTEMI type II #Metabolic alkalosis, likely contraction 2/2 diuresis Presents with abdominal pain due to progressive anascarca, SOB with inc in O2 requirement, dyspnea on exertion, orthopnea, and PND. BNP 1k, trop 0.076 flat x2. Recently dx with HFrEF in 08/2025, unknown cause, denies NM, substance use or strong family hx. Follows Dr. Nathan outpatient, last saw 10/01 and was prescribed Bumex and Entresto, but has yet to start. Echo 09/21/25: LV size mildly enlarged with systolic function severely reduced, estimated EF 2024%, G2DD, RV size and systolic function normal, estimated RVSP 37 mmHg, moderate AV sclerosis without stenosis and mild regurgitation, mild to moderate MVR and TVR, LA severely enlarged, RA moderately enlarged, dilated IVC, trivial pericardial effusion CXR: moderate CHF, prominent L pleural effusion. C/A/P CTA: mild HF, PNA L base, b/l large pleural effusion, cirrhosis, mild ascities, distended GB, colonic diverticulosis. Abd US: normal GB Possible inadequate diuresis since previous discharge. s/p acetazolamide 10/02. s/p venofer 200 x1. Plan: - Cardiology consulted, recs appreciated: hold Entresto to account for BP with aggressive diuresis, recommend close outpatient follow-up for initiation uptitration of GDMT, recommend PFT outpatient to rule out COPD - IV Bumex 2 mg BID with goal net negative 2-3L negative within 24h - CTM for contraction alkalosis and kidney fx - Strict I&Os, daily weights, 1.5L fluid restriction - Keep K>4 and Mg>2 at all times - Place condom catheter at night to prevent multiple bathroom trips #Atrial fibrillation #Hx of atrial fibrillation RVR Recently diagnosed with atrial fibrillation during 08/2025 admission. EKG shows atrial fibrillation rate 93. Digoxin level 0.8 on 10/03/25 Plan: - Cardiology consulted, recs appreciated- continue home Eliquis 5 mg BID, Continue home metoprolol XL 100 mg qAM and 50 mg qhs, and digoxin 0.25 mg QD #MASLD Seen on CTAP and abd US by irregular contour of liver. Likely 2/2 diet and obesity. Plan: - Recommend outpatient follow up Hospital management: Lines: PIV Diet: cardiac, low sodium, 1.5L fluid restriction Bowel: not indicated GI prophylaxis: senna prn DVT prophylaxis: Eliquis 5 mg BID Disposition: tele, IV diuresis CODE STATUS: FULL CODE This case was discussed with my attending physician, Dr. Escamilla, and senior resident, Dr. Goldberg. Ellie Cifuentes DO Internal Medicine PGY-1 Attending Provider Attestation/Addendum I have discussed and was present for the essential components of the history, physical examination, diagnosis, and treatment plan with the resident. I agree with the patient's care as documented by the resident and amended herein by me. Jovan Escamilla DO. Although this document has been carefully reviewed, there may still be some phonetic and other typographical errors. These errors are purely grammatical due to imperfections in the software program and should not be construed in any way to compromise the substance of the patient's medical care during this visit.
--- NOTE | 2025-10-04 10:45 | PC.SS ---
Follow up note: IV diuretics. Cardio recommendations pending. Pt will return home upon dc.
[2025-10-04] MEDS: IRON SUCROSE CPLX INJ 20 MG/ML VIAL 5 ML 200 MG IVP (17:20)
--- NOTE | 2025-10-04 19:45 | PC.NURSE ---
Per lab staff, they need to cancel order for COVID test as they ran out of COVID antigen at this time and patient has been refusing test despite multiple attempts. Called Dr. Adriel MD agreed.
[2025-10-04] MEDS: ATORVASTATIN CALCIUM 20 MG TABLET 40 MG PO (20:45)
[2025-10-04] MEDS: METOPROLOL SUCCINATE XL 25 MG TABCR 50 MG PO (20:46)
[2025-10-05] VITALS (26 sets, daily range): BP systolic 101–150; BP diastolic 61–93; PULSE 67–104; RESP 16–29; TEMP 36.1–36.7; O2SAT 94–98; BMI 43.8
[2025-10-05 05:24] LABS: Basophils # (Auto) 0.1 Thou/mm3 (0.0-0.2); Basophils % (Auto) 1 % (0-2.5); Eosinophils # (Auto) 0.2 Thou/mm3 (0.0-0.5); Eosinophils % (Auto) 3 % (0-10); Hematocrit 40.1 % (41.0-53.0); Hemoglobin 13.0 g/dL (13.5-16.0); Immature Granulocytes Auto 0.09 Thou/mm3 (0.00-0.00); Lymphocytes # (Auto) 1.4 Thou/mm3 (1.0-4.8); Lymphocytes % (Auto) 18 % (10-50); Mean Corpuscular HGB Conc 32.4 g/dl (31.0-37.0); Mean Corpuscular Hemoglobin 28.6 pg (25.0-35.0); Mean Corpuscular Volume 88 fL (80-100); Monocytes # (Auto) 0.9 Thou/mm3 (0.0-0.8); Monocytes % (Auto) 12 % (0-12); Neutrophils # (Auto) 4.9 Thou/mm3 (1.8-7.7); Neutrophils % (Auto) 65 % (37-80); Nucleated Red Blood Cell # 0.00 Thou/mm3 (0.00-0.00); Nucleated Red Blood Cell % 0 /100 WBC (0); Platelet Count 208 Thou/mm3 (140-440); RDW Standard Deviation 47.3 fL (35.1-43.9); Red Blood Count 4.54 Miln/mm3 (4.50-5.90); White Blood Count 7.6 Thou/mm3 (3.8-10.6)
[2025-10-05 05:45] LABS: Alanine Aminotransferase 19 U/L (10-49); Albumin, Serum 3.5 gm/dL (3.4-4.8); Albumin/Globulin Ratio 1.3 (1.2-2.2); Alkaline Phosphatase 61 U/L (46-116); Anion Gap 9 (7-16); Aspartate Amino Transferase 19 U/L (0-34); BUN/Creatinine Ratio 17 Ratio (12-20); Bilirubin,Total 1.2 mg/dL (0.3-1.2); Blood Urea Nitrogen 15 mg/dL (9-23); Calcium 8.9 mg/dL (8.3-10.6); Calcium (Corrected) 9.3 mg/dL (8.5-10.1); Carbon Dioxide 30.0 mMol/L (20.0-31.0); Chloride 104 mMol/L (98-107); Creatinine (Component) 0.9 mg/dL (0.6-1.3); Estimated Creatinine Clearance 107.5 mL/min (>60); Globulin 2.8 gm/dL (2.3-3.5); Glucose 94 mg/dL (74-106); Magnesium 2.1 mg/dL (1.6-2.6); Osmolality,Calculated 285 (275-295); Potassium 4.1 mMol/L (3.4-5.1); Sodium 143 mMol/L (136-145); Total Protein 6.3 gm/dL (5.7-8.2); eGFR > 60 See Note
--- NOTE | 2025-10-05 07:00 | ECHO_ITS ---
Patient Info Name: Rocael Doe Age: 65 years : 1960 Gender: Male Ht: 170 cm Wt: 127 kg BSA: 2.52 m2 BP: 133 / 90 mmHg HR: 97 bpm Exam Date: 10/05/2025 2:39 PM Admit Date: 10/02/2025 Site: [facility] Room Number: Service Consultant Patient Status: I Exam Type: CA echo transesophageal Automation Qtp Tester: Susannah Ba Ordering Physician: Ted Goldberg Study Info Indications Assess for atrial appendage thrombus prior to cardioversion - Contrast/Agitated Saline Contrast/Ag. Saline: Agitated Saline Amount: --- ml IV Access Condition: patent with no signs of infiltration Primary Location: [id number] Mitral Valve Name Value Normal MV Doppler MV Mean Gradient 63 mmHg MV Regurgitation Doppler MV EROA (PISA) 0.39 cm2 MR Volume (PISA) 58 ml Medications * Versed 3.00 mg. * Fentanyl 75.00 mg. Left Ventricle Left ventricular systolic function is severely reduced with visually estimated ejection fraction of 30-35%. There is normal geometry noted in the left ventricle. There is indeterminate diastolic function in the left ventricle. Left ventricular systolic function is severely reduced with visually estimated ejection fraction of 20-25%. There is normal geometry noted in the left ventricle. There is indeterminate diastolic function in the left ventricle. Right Ventricle Right ventricular chamber dimension is normal. Right ventricular systolic function is normal. Left Atrium Left atrial chamber dimension is enlarged. There is no thrombus visualized in the left atrium. There is no thrombus visualized in the left atrial appendage. Right Atrium Right atrial chamber dimension is enlarged. Atrial Septum The interatrial septum appears normal with no evidence of PFO or ASD by agitated saline imaging. Atrial Appendage There is no thrombus visualized in the left atrial appendage. Aortic Valve The aortic valve is trileaflet. There is no aortic valve regurgitation. Pulmonic Valve The pulmonic valve is normal. Mitral Valve Severe mitral regurgitation with eccentric, posteriorly directed regurgitant jet. MR Velocity of 4.86 m/s, PISA of 0.9 cm, EROA of 0.39 cm2, regurgitant volume of 53-57ml. Tricuspid Valve The tricuspid valve leaflets are normal. There is mild tricuspid valve regurgitation. Pulmonary Veins Reversal of systolic flow in the right upper pulmonary vein. There is systolic blunting noted in one of the upper pulmonary veins, with associated systolic reversal of flow. Pericardium/Pleural There is no pericardial effusion. The pericardium appears normal. Summary 1. Bubble study negative for PFO/ASD. No evidence of any DEVONTE or DEVONTE thrombus. Appropriate for cardioversion. 2. Left ventricular systolic function is severely reduced with visually estimated ejection fraction of 30-35%. 3. Moderate to Severe eccentric mitral regurgitation, posteriorly directed regurgitant jet. Etiology unclear and could be posterior leaflet flail. 4. MR VTI 146 cm, PISA of 0.9 cm, EROA of 0.39 cm2, regurgitant volume of 53-57ml. Systolic blunting in 3 pulmonary veins and systolic flow reversal only in the right upper pulmonary vein indicating possibly moderate MR. 5. There is mild tricuspid valve regurgitation. Mild aortic valve sclerosis without stenosis. 6. Severely dilated LA and moderately dilated RA. Trace pericardial effusion. No tamponade. Report Signatures Finalized by Marcus Nathan on 10/12/2025 07:53 PM
[2025-10-05] MEDS: IRON SUCROSE CPLX INJ 20 MG/ML VIAL 5 ML 200 MG IVP (09:10)
[2025-10-05] MEDS: BUMETANIDE INJ 0.25 MG/ML VIAL 4 ML 2 MG IVP ×2 (09:11→21:35)
[2025-10-05] MEDS: DIGOXIN 0.125 MG TABLET 0.25 MG PO (09:11)
[2025-10-05] MEDS: METOPROLOL SUCCINATE XL 25 MG TABCR 100 MG PO (09:12)
[2025-10-05] MEDS: APIXABAN 2.5 MG TABLET 5 MG PO ×2 (09:15→21:14)
[2025-10-05 09:18] LABS: INR 1.1 (0.9-1.3); Partial Thromboplastin Time 30.6 Seconds (22.0-36.0); Prothrombin Time 11.9 Seconds (9.0-12.2)
--- NOTE | 2025-10-05 10:23 | PD.RESPRO ---
Documentation for date of: 10/05/25 Subjective Subjective Interval history: Patient completed OLI today and received electrical Cardioversion 150J x1 from which patient turned to sinus rhythm Exam Vital Signs Temp Pulse Resp BP Pulse Ox O2 Del Method O2 Flow Rate 96.9 F 87 18 115/81 97 Nasal Cannula 2 10/05/25 08:00 10/05/25 09:12 10/05/25 08:03 10/05/25 09:12 10/05/25 08:03 10/05/25 04:00 10/05/25 08:03 Narrative Exam GENERAL: AOx3, no acute distress HEENT: mucous membranes moist, bilateral sclera anicteric CARDIOVASCULAR: regular rate and rhythm, S1/S2 present, 2/6 murmur mitral region. PULMONARY: clear to auscultation bilaterally, no rales/rhonchi/wheezes ABDOMINAL: soft, no rebound/guarding, bowel sounds present, moderate distension of lower abdomen also TTP EXTREMITIES: 1+ pitting edema BLE, R thumb amputated although nail remains SKIN: warm and dry, intact, no rashes NEURO: CN II-XII grossly intact, no focal deficits, alert, following commands Objective Labs 10/05/25 04:50 10/05/25 04:50 Labs: Laboratory Results - last 24 hr 10/05/25 10/05/25 04:50 08:11 WBC 7.6 RBC 4.54 Hgb 13.0 L Hct 40.1 L MCV 88 MCH 28.6 MCHC 32.4 RDW Std Deviation 47.3 H Plt Count 208 Neut % (Auto) 65 Lymph % (Auto) 18 [place] % (Auto) 12 Eos % (Auto) 3 Baso % (Auto) 1 Neut # (Auto) 4.9 Lymph # (Auto) 1.4 [place] # (Auto) 0.9 H Eos # (Auto) 0.2 Baso # (Auto) 0.1 Immature Gran # (Auto) 0.09 H Absolute Nucleated RBC 0.00 Immature Gran % 1 H Nucleated RBC % 0 PT 11.9 INR 1.1 APTT 30.6 Sodium 143 Potassium 4.1 D Chloride 104 Carbon Dioxide 30.0 Anion Gap 9 BUN 15 Creatinine 0.9 Estim Creat Clear Calc 107.5 eGFR > 60 BUN/Creatinine Ratio 17 Glucose 94 Calculated Osmolality 285 Calcium 8.9 Corrected Calcium 9.3 Magnesium 2.1 Total Bilirubin 1.2 D AST 19 ALT 19 Alkaline Phosphatase 61 Total Protein 6.3 Albumin 3.5 Globulin 2.8 Albumin/Globulin Ratio 1.3 Quality Measures Quality Measures none Assessment & Plan Assessment Current Active Medications: Generic Name Dose Route Start Last Admin Trade Name Freq PRN Reason Stop Dose Admin Acetaminophen 650 mg 10/02/25 10:42 10/03/25 11:59 Acetaminophen 325 Mg Tablet PO 11/01/25 10:41 650 mg Q6H PRN Administration Fever >100.4 or pain Albuterol/Ipratropium 3 ml 10/03/25 09:51 Albuterol/Ipratropium (Duoneb) Rt Vonda 3 Ml Nebu INH 11/02/25 10:59 Q4HRRT PRN wheezing Apixaban 5 mg 10/02/25 11:00 10/05/25 09:15 Apixaban 2.5 Mg Tablet PO 11/01/25 10:59 5 mg BID KATINA Administration Atorvastatin Calcium 40 mg 10/03/25 21:00 10/04/25 20:45 Atorvastatin Calcium 20 Mg Tablet PO 11/02/25 20:59 40 mg HS KATINA Administration Bumetanide 2 mg 10/02/25 21:00 10/05/25 09:11 Bumetanide Inj 0.25 Mg/Ml Vial 4 Ml IVP 11/01/25 20:59 2 mg BID KATINA Administration Digoxin 0.25 mg 10/03/25 09:00 10/05/25 09:11 Digoxin 0.125 Mg Tablet PO 11/02/25 08:59 0.25 mg QDAY KATINA Administration Metoprolol Succinate 100 mg 10/03/25 09:00 10/05/25 09:12 Metoprolol Succinate Xl 25 Mg Tabcr PO 11/02/25 08:59 100 mg QAM KATINA Administration Metoprolol Succinate 50 mg 10/02/25 21:00 10/04/25 20:46 Metoprolol Succinate Xl 25 Mg Tabcr PO 11/01/25 20:59 50 mg HS KATINA Administration Sennosides 1 tab 10/02/25 10:42 Senna Tablet PO 11/01/25 10:41 QDAY PRN constipation Protocol Plan Mr. Doe is a 65-year-old male with past medical history of combined systolic and diastolic heart failure, HFrEF EF 20 to 25%, suspected LV thrombus, atrial fibrillation on Eliquis, NSVT, right thumb amputation, DDD of spine, right C6 denervation, significant secondhand smoke exposure and iron deficiency anemia admitted to [facility] for management of acute decompensated heart failure. Cardiology consulted as patient is known to practice and for management of heart failure. #Acute decompensated heart failure #Combined systolic and diastolic heart failure, EF 20 to 25% (08/2025), and NHYA class III #Bilateral Pleural effusion #Iron deficiency anemia Presented to hospital due to worsening SOB, PND, orthpnea with +3 pitting edema of bilateral Lower extremity On admission, Troponin 0.076, BNP: 1039. Chest x-ray showed moderate heart failure, prominent left pleural effusion. CTA chest abdomen pelvis negative for PE, shows mild heart failure, large bilateral pleural effusion, cirrhosis, mild ascites and distended gallbladder. Patient was seen in clinic earlier this week, was started on Entresto 0.5 p.o. twice daily and was switched from Lasix 40 daily to Bumex 2 mg daily however patient had not started taking Bumex prior to admission. Iron panel 09/08/2025?iron 15, TIBC 307, iron saturation 4, iron sat iron binding 292 ferritin 65 Bicarb improved today, elevated bicarb 33.1 noted 10/02, was given acetazolamide x 1 Transthoracic echocardiogram 09/21/2025: -Left ventricle size is mildly enlarged and systolic function is severely reduced. Estimated ejection fraction is 20-25%. There is grade II diastolic dysfunction. Cannot rule out Small LV thrombus. Will need echo contrast study which is not available here. -Right ventricle chamber size is normal and systolic function is normal. Estimated RVSP is 37 mmHg. mildly elevated RVSP. -There is moderate aortic valve sclerosis with no stenosis and mild regurgitation. -There is mild to moderate mitral and tricuspid valve regurgitation. -The left atrium is severely enlarged. The right atrium is moderately enlarged. -Dilated IVC with estimated RA pressure 15 mmHg. -There is trivial pericardial effusion with no tamponade. -OLI (10/05/2025) was negative for LV thrombus. Recommendations: -Recommend continuing Bumex 2 mg twice daily. -Strict intake and output -Fluid restriction 1500 cc -Daily weight -Cardiac, low-sodium diet -Continue metoprolol succinate, start on Entresto as blood pressure tolerates once exacerbation has improved. -Patient will need close outpatient follow-up, highly recommend appointment within 1 week of discharge and will uptitrate GDMT outpatient as tolerates. -Due to history of secondhand smoke exposure will benefit from PFTs outpatient to rule out COPD. #Atrial fibrillation, rate controlled #?Suspected small LV thrombus #Nonsustained ventricular tachycardia, by history -Patient admitted in August for A-fib RVR, was started on metoprolol tartrate 100 mg every morning and 50 mg nightly. Rate is well-controlled. -Patient was started on digoxin as well during the prior admission, digoxin levels within normal limits, dig level this morning 0.8. -Patient had NSVT runs for about 20 seconds on telemetry on 09/11/2025. No further episodes were noted after patient was started on metoprolol and digoxin. -Echocardiogram during the prior visit was not able to rule out small LV thrombus. -[id number] score 2 points, HAS BLED score 2 points - Patient received electrical Cardioversion 150J x1 from which patient turned to sinus rhythm Recommendations: - Continue metoprolol 100 mg daily and 50 mg at bedtime - Continue digoxin at 0.25 mg - Continue Eliquis 5 mg twice daily - Continue telemetry monitoring - Patient will need outpatient Holter monitoring to assess for A-fib burden and ECHO-contrast study to rule out LV thrombus. - Patient is still in afib, Planned for OLI and Cardioversion tomorrow. NPO after midnight. #NSTEMI type II, likely demand ischemia Patient denies any chest pain, presented with elevated troponin 0.076 -> 0.076. EKG on presentation shows no acute ST-T changes, atrial fibrillation rate controlled, Q waves noted in V3 V4 Patient's troponin elevation likely secondary to CHF exacerbation. Lipid panel 10/03/2025 shows?triglyceride 56, cholesterol 108, LDL 58, HDL 39, cholesterol/HDL ratio 2.8 TSH 10/02 0.52, free T41.47, hemoglobin A1c 6.0 Patient does have risk factor for CAD: Hypertension, dyslipidemia, morbid obesity, secondhand smoke exposure, family history of heart disease ASCVD risk score: 9.4%, moderate to high intensity statin recommended Recommendations: - Monitor for chest pain - Start high intensity statin, atorvastatin 40 mg at bedtime - Patient will need ischemia workup outpatient, last recent echocardiogram was negative for any wall motion abnormalities. Will schedule patient outpatient for stress test and possible cardiac catheterization. #Hypertension - Recommendations as above, continue metoprolol consider adding Entresto as blood pressure tolerates. #Imaging finding of liver cirrhosis, suspected MASLD #Hyperbilirubinemia Management as per primary team Assessment and plan discussed with my attending physician Dr. Jac Ames (PGY-1) - Internal medicine resident Attending Provider Attestation/Addendum I have personally seen and examined the patient separately on the above date of service and discussed the plan of care with the resident. I reviewed the resident Dr. Robert Ames / Ryder Horner consultation progress note and agree with the resident findings and plan in the note above and have also edited the documentation to reflect my findings and plan. Patient seen and examined at the bedside. No new cardiac complaints. Patient still continues to be in atrial fibrillation with RVR. Patient has been n.p.o. overnight for the OLI with cardioversion as he continues to be in A-fib with RVR which is contributing to the CHF exacerbation systolic CHF. Discussed with the patient the risk benefits and alternatives of performing the OLI and cardioversion. Patient denies any kind of swallowing problems or any kind of esophageal interventions or previous surgeries. Patient denies any kind of gastric ulcers bleeding and any other hematemesis or hematochezia. Patient denies any issues with anesthesia previously. Patient explained all the risks, benefits and alternatives of OLI including the risk of perforation, bleeding, respiratory failure secondary to sedation, injury to teeth gums esophagus and stomach. Patient understands all risks and benefits and provided consent for the procedure. He completed on 10/05/2025 showed severely reduced LV function with an EF of 20 to 25%. No evidence of any LV thrombus. Normal RV size and function. Dilated LA and RA. There was moderate to severe posteriorly directed eccentric MR with systolic blunting and 3 of the pulmonary veins and systolic reversal in the right upper pulmonary vein. Mild TR. Mild aortic valve sclerosis without stenosis. Trace AI and PI. No significant pericardial effusion. OLI was negative for any LA or DEVONTE thrombus. Decision was made to perform cardioversion received 150 J x 1 with which she converted to normal sinus rhythm. Repeat EKG did show normal sinus rhythm with frequent PACs. Patient was transferred back to the floor in stable condition. Recommend to continue Eliquis twice daily without fail for the next 3 to 4 weeks along with metoprolol XL for rate control and if blood pressure stable we will continue to uptitrate the medication. Keep potassium greater than 4 and magnesium greater than 2.0 at all times. Continue aggressive diuresis with Bumex 2 mg IV twice daily. Renal function appears to be stable and no evidence of any contraction alkalosis and will recommend to continue the same for the next couple of days. Marcus Nathan M.D. Interventional Cardiology
--- NOTE | 2025-10-05 14:37 | ESOP_ITS ---
Procedure Direct current cardioversion for uncontrolled atrial fibrillation Moderate Conscious Sedation with Versed and Fentanyl Date of Procedure 10/05/25 Pre Op Diagnosis Atrial Fibrillation Indication Atrial Fibrillation Post Op Diagnosis Normal Sinus Rhythm restored. Procedure Description Patient was in atrial fibrillation and ventricular rate was uncontrolled and was brought in for elective cardioversion as patient was having significant symptoms for the Afib. Decision was made to perform cardioversion for the patient after performing a transesophageal echocardiogram. Transesophageal echocardiogram was completed today and did not show any significant LA or DEVONTE thrombus.? Please see OLI report from today for rest of the findings.? Patient was already on anticoagulation with eliquis.. Patient was taken to the grinding and polishing laborer for the OLI and cardioversion, both anterior and posterior pads were placed.? Patient was given moderate sedation and received a total of 5 mg of Versed and 125 mcg of fentanyl prior to the procedure to provide him enough for sedation. A biphasic defibrillator was used.? A single 150 J synchronized shock was given and the patient converted successfully into normal sinus rhythm.? No complications during or after the procedure.? Patient is doing well.? His heart rate was stable between 50 to 70 bpm and appears to be normal sinus rhythm on the telemetry.? Recommend to perform an EKG to document normal sinus rhythm postprocedure.? Patient will be monitored in the grinding and polishing laborer for the next 1-2 hours and will be discharged home if hemodynamically stable. Will adjust his medications for atrial fibrillation as outpatient. Estimated Blood Loss 0 Specimen(s) Specimen(s): None Conclusion Successful direct current cardioversion of Atrial Fibrillation to Normal Sinus Rhythm Recommendation Continue digoxin 0.25 mg QD, metoprolol XL 100 mg in AM and 50 mg in PM Q Day if BP stable and will adjust medications in the office as outpatient. Continue Eliquis 5 mg BID for anticaogulation. EKG to document NSR post procedure. No driving for 24 hours. Patient recommended to follow up in 1 week in the clinic. Surgical Staff Surgeon: Marcus Nathan MD
--- NOTE | 2025-10-05 14:40 | ESPR_ITS ---
<Statement entered by Ted Goldberg MD - 10/05/25 15:43> I saw and examined patient personally and supervised PGY 1 resident, Dr. Cifuentes with formulating a management plan. I agree with the documentation with the exceptions as listed below. Patient said that he has much improvement of his shortness of breath and lower extremity edema today. He ambulates to the restroom independently. Fluid balance of -2 to 85 cc in past 24 hours. On diuresis with Bumex 2 mg IV twice daily. Patient currently n.p.o. and awaiting OLI +/- electrical cardioversion by slasher hand Dr. Nathan today. Plan of care discussed with Attending Dr. Keenan Goldberg MD PGY 2 Disclaimer: This note was dictated by speech recognition. Minor errors in epic ambulatory analysts may be present due to voice recognition software. Documentation for date of: 10/05/25 Subjective Subjective Interval history: No acute overnight events. Patient seen and examined at bedside with son. Patient reports greatly improved leg swelling and abdominal pain. No new complaints. VSS. UOP 5.5L 24h. Per cardiology, patient to undergo OLI and cardioversion today. Will monitor overnight and anticipate discharge within the next 24 to 48 hours. Continue IV Bumex 2 mg twice daily during hospital stay. Exam Vital Signs Temp Pulse Resp BP Pulse Ox O2 Del Method O2 Flow Rate 97.1 F 104 H 22 H 133/90 H 96 Nasal Cannula 4 10/05/25 12:00 10/05/25 13:55 10/05/25 13:55 10/05/25 13:55 10/05/25 13:55 10/05/25 13:55 10/05/25 13:55 Narrative Exam GENERAL: AOx3, no acute distress, obese HEENT: mucous membranes moist, bilateral sclera anicteric CARDIOVASCULAR: regular rate and irregular rhythm, S1/S2 present, 2/6 systolic murmur PULMONARY: diminished breath sounds bilaterally improved since admission, mild bilateral crackles at base ABDOMINAL: soft, no rebound/guarding, bowel sounds present, improved anasarca to lower abdomen EXTREMITIES: 1+ pitting edema bilateral feet, trace pitting edema BLE, R thumb amputated although nail remains SKIN: warm and dry, intact, no rashes NEURO: CN II-XII grossly intact, no focal deficits, alert, following commands Objective Labs 10/05/25 04:50 10/05/25 04:50 Labs: Laboratory Results - last 24 hr 10/05/25 10/05/25 04:50 08:11 WBC 7.6 RBC 4.54 Hgb 13.0 L Hct 40.1 L MCV 88 MCH 28.6 MCHC 32.4 RDW Std Deviation 47.3 H Plt Count 208 Neut % (Auto) 65 Lymph % (Auto) 18 [place] % (Auto) 12 Eos % (Auto) 3 Baso % (Auto) 1 Neut # (Auto) 4.9 Lymph # (Auto) 1.4 [place] # (Auto) 0.9 H Eos # (Auto) 0.2 Baso # (Auto) 0.1 Immature Gran # (Auto) 0.09 H Absolute Nucleated RBC 0.00 Immature Gran % 1 H Nucleated RBC % 0 PT 11.9 INR 1.1 APTT 30.6 Sodium 143 Potassium 4.1 D Chloride 104 Carbon Dioxide 30.0 Anion Gap 9 BUN 15 Creatinine 0.9 Estim Creat Clear Calc 107.5 eGFR > 60 BUN/Creatinine Ratio 17 Glucose 94 Calculated Osmolality 285 Calcium 8.9 Corrected Calcium 9.3 Magnesium 2.1 Total Bilirubin 1.2 D AST 19 ALT 19 Alkaline Phosphatase 61 Total Protein 6.3 Albumin 3.5 Globulin 2.8 Albumin/Globulin Ratio 1.3 Quality Measures Quality Measures none Assessment & Plan Assessment Current Active Medications: Generic Name Dose Route Start Last Admin Trade Name Freq PRN Reason Stop Dose Admin Acetaminophen 650 mg 10/02/25 10:42 10/03/25 11:59 Acetaminophen 325 Mg Tablet PO 11/01/25 10:41 650 mg Q6H PRN Administration Fever >100.4 or pain Albuterol/Ipratropium 3 ml 10/03/25 09:51 Albuterol/Ipratropium (Duoneb) Rt Vonda 3 Ml Nebu INH 11/02/25 10:59 Q4HRRT PRN wheezing Apixaban 5 mg 10/02/25 11:00 10/05/25 09:15 Apixaban 2.5 Mg Tablet PO 11/01/25 10:59 5 mg BID KATINA Administration Atorvastatin Calcium 40 mg 10/03/25 21:00 10/04/25 20:45 Atorvastatin Calcium 20 Mg Tablet PO 11/02/25 20:59 40 mg HS KATINA Administration Bumetanide 2 mg 10/02/25 21:00 10/05/25 09:11 Bumetanide Inj 0.25 Mg/Ml Vial 4 Ml IVP 11/01/25 20:59 2 mg BID KATINA Administration Digoxin 0.25 mg 10/03/25 09:00 10/05/25 09:11 Digoxin 0.125 Mg Tablet PO 11/02/25 08:59 0.25 mg QDAY KATINA Administration Metoprolol Succinate 100 mg 10/03/25 09:00 10/05/25 09:12 Metoprolol Succinate Xl 25 Mg Tabcr PO 11/02/25 08:59 100 mg QAM KATINA Administration Metoprolol Succinate 50 mg 10/02/25 21:00 10/04/25 20:46 Metoprolol Succinate Xl 25 Mg Tabcr PO 11/01/25 20:59 50 mg HS KATINA Administration Sennosides 1 tab 10/02/25 10:42 Senna Tablet PO 11/01/25 10:41 QDAY PRN constipation Protocol Plan Rocael Doe 65M pmhx significant for HFrEF (20-25%) with severe systolic dysfunction, atrial fibrillation on Eliquis with hx of RVR, right thumb amputation, DDD of spine, right C6 denervation DDD, chronic back pain, and R C6 dennervation who presents with progressive anascara and SOB, admitted for acute on chronic HFrEF exacerbation. #Acute on chronic HFrEF (20-25%), NYHA III #Bilateral pleural effusion #NSTEMI type II #Metabolic alkalosis, likely contraction 2/2 diuresis Presents with abdominal pain due to progressive anascarca, SOB with inc in O2 requirement, dyspnea on exertion, orthopnea, and PND. BNP 1k, trop 0.076 flat x2. Recently dx with HFrEF in 08/2025, unknown cause, denies CA, substance use or strong family hx. Follows Dr. Nathan outpatient, last saw 10/01 and was prescribed Bumex and Entresto, but has yet to start. Echo 09/21/25: LV size mildly enlarged with systolic function severely reduced, estimated EF 2024%, G2DD, RV size and systolic function normal, estimated RVSP 37 mmHg, moderate AV sclerosis without stenosis and mild regurgitation, mild to moderate MVR and TVR, LA severely enlarged, RA moderately enlarged, dilated IVC, trivial pericardial effusion CXR: moderate CHF, prominent L pleural effusion. C/A/P CTA: mild HF, PNA L base, b/l large pleural effusion, cirrhosis, mild ascities, distended GB, colonic diverticulosis. Abd US: normal GB Possible inadequate diuresis since previous discharge. s/p acetazolamide 10/02. s/p venofer 200 x1. Ddx: strong familial cardiac hx, chronic atrial fibrillation, [place] Plan: - Cardiology consulted, recs appreciated: hold Entresto to account for BP with aggressive diuresis, recommend close outpatient follow-up for initiation uptitration of GDMT, recommend PFT outpatient to rule out COPD - IV Bumex 2 mg BID with goal net negative 2-3L negative within 24h - CTM for contraction alkalosis and kidney fx - Strict I&Os, daily weights, 1.5L fluid restriction - Keep K>4 and Mg>2 at all times - Place condom catheter at night to prevent multiple bathroom trips #Atrial fibrillation s/p OLI and cardioversion 10/05 #Hx of atrial fibrillation RVR Recently diagnosed with atrial fibrillation during 08/2025 admission. EKG shows atrial fibrillation rate 93. Digoxin level 0.8 on 10/03/25 Plan: - Cardiology consulted, recs appreciated- continue home Eliquis 5 mg BID, Continue home metoprolol XL 100 mg qAM and 50 mg qhs, and digoxin 0.25 mg QD #MASLD Seen on CTAP and abd US by irregular contour of liver. Likely 2/2 diet and obesity. Plan: - Recommend outpatient follow up Hospital management: Lines: PIV Diet: cardiac, low sodium, 1.5L fluid restriction Bowel: not indicated GI prophylaxis: senna prn DVT prophylaxis: Eliquis 5 mg BID Disposition: tele, IV diuresis, s/p OLI and cardioversion CODE STATUS: FULL CODE This case was discussed with my attending physician, Dr. Hussein, and senior resident, Dr. Goldberg. Ellie Cifuentes, DO Internal Medicine PGY-1 Attending Provider Attestation/Addendum Patient admitted for edema, anasarca improved with diuretic treatment. Patient also found to have atrial fibrillation and congestive heart failure. Staff said that she is scheduled for OLI. Patient then son describes familial heart condition affecting grandparents and the patient's father. Mom also had cardiovascular disease. Further workup for heart failure indicated. I discussed with and supervised the resident physician who took care of this patient. I agree with the assessment and plan as above.
[2025-10-05] MEDS: BENZOCAINE 20% (Hurricaine) SPRAY 1 DOSE TOP (15:16)
[2025-10-05] MEDS: fentaNYL CIT INJ 50 mCg/ML AMP 2ML 100 MCG IVP (15:17)
[2025-10-05] MEDS: MIDAZOLAM INJ 1 MG/ML VIAL 2 ML 5 MG IVP (15:17)
--- NOTE | 2025-10-05 15:31 | EKG_ITS ---
[facility] Test Date: 2025-10-05 Pat Name: ERON GARCIA [facility] Laboratory Mechanical Technician: JOSE MARIA : 1960 Requested By: Marcus Nathan Order Number: [id number] Reading MD: Marcus Nathan Measurements Intervals [place] Rate: 71 P: 41 NE: 186 QRS: 38 QRSD: 96 T: 132 QT: 388 QTc: 423 Interpretive Statements SINUS RHYTHM POSSIBLE ANTERIOR MYOCARDIAL INFARCTION , PROBABLY OLD Compared to ECG 10/02/2025 13:55:59 Atrial fibrillation no longer present Myocardial infarct finding still present /store/[id number].pdf
[2025-10-05] MEDS: ATORVASTATIN CALCIUM 20 MG TABLET 40 MG PO (21:14)
[2025-10-05] MEDS: METOPROLOL SUCCINATE XL 25 MG TABCR 50 MG PO (21:15)
[2025-10-06] VITALS (13 sets, daily range): BP systolic 100–148; BP diastolic 60–85; PULSE 59–100; RESP 14–21; TEMP 36.3–36.9; O2SAT 95–98; BMI 43.9
[2025-10-06 05:16] LABS: Basophils # (Auto) 0.1 Thou/mm3 (0.0-0.2); Basophils % (Auto) 1 % (0-2.5); Eosinophils # (Auto) 0.2 Thou/mm3 (0.0-0.5); Eosinophils % (Auto) 3 % (0-10); Hematocrit 41.8 % (41.0-53.0); Hemoglobin 13.4 g/dL (13.5-16.0); Immature Granulocytes Auto 0.03 Thou/mm3 (0.00-0.00); Lymphocytes # (Auto) 1.2 Thou/mm3 (1.0-4.8); Lymphocytes % (Auto) 18 % (10-50); Mean Corpuscular HGB Conc 32.1 g/dl (31.0-37.0); Mean Corpuscular Hemoglobin 28.3 pg (25.0-35.0); Mean Corpuscular Volume 88 fL (80-100); Monocytes # (Auto) 0.7 Thou/mm3 (0.0-0.8); Monocytes % (Auto) 11 % (0-12); Neutrophils # (Auto) 4.3 Thou/mm3 (1.8-7.7); Neutrophils % (Auto) 66 % (37-80); Nucleated Red Blood Cell # 0.00 Thou/mm3 (0.00-0.00); Nucleated Red Blood Cell % 0 /100 WBC (0); Platelet Count 245 Thou/mm3 (140-440); RDW Standard Deviation 46.0 fL (35.1-43.9); Red Blood Count 4.73 Miln/mm3 (4.50-5.90); White Blood Count 6.4 Thou/mm3 (3.8-10.6)
[2025-10-06 05:49] LABS: Alanine Aminotransferase 22 U/L (10-49); Albumin, Serum 4.1 gm/dL (3.4-4.8); Albumin/Globulin Ratio 1.4 (1.2-2.2); Alkaline Phosphatase 69 U/L (46-116); Anion Gap 11 (7-16); Aspartate Amino Transferase 22 U/L (0-34); BUN/Creatinine Ratio 20 Ratio (12-20); Bilirubin,Total 1.5 mg/dL (0.3-1.2); Blood Urea Nitrogen 18 mg/dL (9-23); Calcium 9.4 mg/dL (8.3-10.6); Calcium (Corrected) 9.4 mg/dL (8.5-10.1); Carbon Dioxide 31.9 mMol/L (20.0-31.0); Chloride 100 mMol/L (98-107); Creatinine (Component) 0.9 mg/dL (0.6-1.3); Estimated Creatinine Clearance 107.5 mL/min (>60); Globulin 2.9 gm/dL (2.3-3.5); Glucose 89 mg/dL (74-106); Magnesium 2.1 mg/dL (1.6-2.6); Osmolality,Calculated 285 (275-295); Potassium 3.9 mMol/L (3.4-5.1); Sodium 143 mMol/L (136-145); Total Protein 7.0 gm/dL (5.7-8.2); eGFR > 60 See Note
[2025-10-06] MEDS: ACETAMINOPHEN 325 MG TABLET 650 MG PO (06:22)
--- NOTE | 2025-10-06 08:18 | EKG_ITS ---
[facility] Test Date: 2025-10-06 Pat Name: ERON GARCIA [facility] Concreting Supervisor: [id number] : 1960 Requested By: Ellie Cifuentes Order Number: [id number] Reading MD: Ellie Cifuentes Measurements Intervals [place] Rate: 76 P: 54 ME: 186 QRS: 44 QRSD: 90 T: 156 QT: 387 QTc: 435 Interpretive Statements SINUS RHYTHM NONSPECIFIC T-WAVE ABNORMALITY Compared to ECG 10/05/2025 17:08:46 T-wave abnormality now present Myocardial infarct finding no longer present /store/[id number]/[id number].pdf
[2025-10-06] MEDS: DIGOXIN 0.125 MG TABLET 0.25 MG PO (08:33)
[2025-10-06] MEDS: APIXABAN 2.5 MG TABLET 5 MG PO ×2 (08:33→21:13)
[2025-10-06] MEDS: METOPROLOL SUCCINATE XL 25 MG TABCR 100 MG PO (08:34)
[2025-10-06] MEDS: BUMETANIDE INJ 0.25 MG/ML VIAL 4 ML 2 MG IVP ×2 (08:34→21:15)
--- NOTE | 2025-10-06 11:16 | ESPR_ITS ---
<Statement entered by Ted Goldberg MD - 10/06/25 20:15> I saw and examined patient personally and supervised PGY 1 resident, Dr. Cifuentes with formulating a management plan. I agree with the documentation with the exceptions as listed below. Patient underwent OLI with electrical cardioversion yesterday by cardiology. EKG this a.m. showed sinus rhythm, rate 70. Will keep for 1-2 more days for IV diuresis with Bumex 2 Mg IV twice daily as per cardiology recommendations. Will decrease diuretic dose tomorrow and start low-dose Entresto. Plan of care discussed with Attending Dr. Li Goldberg MD PGY 2 Disclaimer: This note was dictated by speech recognition. Minor errors in massotherapist may be present due to voice recognition software. Documentation for date of: 10/06/25 Subjective Subjective Interval history: No acute overnight events. Patient seen examined at bedside. Patient reports greatly improved shortness of breath and leg swelling. UOP 5.8 L 24-hour. VSS. Potassium 3.9, repleted with 20 mEq, bicarb slightly elevated now 31 likely secondary to contraction alkalosis from diuresis, creatinine stable. Status post OLI and cardioversion 10/05, patient is currently in sinus rate 70s. Per cardiology, anticipate IV diuresis for 1-2 more days. Exam Vital Signs Temp Pulse Resp BP Pulse Ox O2 Del Method O2 Flow Rate 97.4 F 64 18 112/70 97 Nasal Cannula 3 10/06/25 08:00 10/06/25 09:15 10/06/25 09:15 10/06/25 08:34 10/06/25 09:15 10/06/25 08:00 10/06/25 09:15 Narrative Exam GENERAL: AOx3, no acute distress, obese HEENT: mucous membranes moist, bilateral sclera anicteric CARDIOVASCULAR: regular rate and regular rhythm, S1/S2 present, 2/6 systolic murmur PULMONARY: diminished breath sounds on R improved since admission, L CTA ABDOMINAL: soft, non-tender, no rebound/guarding, bowel sounds present EXTREMITIES: 1+ pitting edema bilateral feet, no edema BLE, R thumb amputated although nail remains SKIN: warm and dry, intact, no rashes NEURO: CN II-XII grossly intact, no focal deficits, alert, following commands Objective Labs 10/07/25 05:58 10/07/25 05:58 Labs: Laboratory Results - last 24 hr 10/06/25 04:35 WBC 6.4 RBC 4.73 Hgb 13.4 L Hct 41.8 MCV 88 MCH 28.3 MCHC 32.1 RDW Std Deviation 46.0 H Plt Count 245 D Neut % (Auto) 66 Lymph % (Auto) 18 [place] % (Auto) 11 Eos % (Auto) 3 Baso % (Auto) 1 Neut # (Auto) 4.3 Lymph # (Auto) 1.2 [place] # (Auto) 0.7 Eos # (Auto) 0.2 Baso # (Auto) 0.1 Immature Gran # (Auto) 0.03 H Absolute Nucleated RBC 0.00 Immature Gran % 1 H Nucleated RBC % 0 Sodium 143 Potassium 3.9 Chloride 100 Carbon Dioxide 31.9 H Anion Gap 11 BUN 18 Creatinine 0.9 Estim Creat Clear Calc 107.5 eGFR > 60 BUN/Creatinine Ratio 20 Glucose 89 Calculated Osmolality 285 Calcium 9.4 Corrected Calcium 9.4 Magnesium 2.1 Total Bilirubin 1.5 H AST 22 ALT 22 Alkaline Phosphatase 69 Total Protein 7.0 Albumin 4.1 D Globulin 2.9 Albumin/Globulin Ratio 1.4 Quality Measures Quality Measures none Assessment & Plan Assessment Current Active Medications: Generic Name Dose Route Start Last Admin Trade Name Freq PRN Reason Stop Dose Admin Acetaminophen 650 mg 10/02/25 10:42 10/06/25 06:22 Acetaminophen 325 Mg Tablet PO 11/01/25 10:41 650 mg Q6H PRN Administration Fever >100.4 or pain Albuterol/Ipratropium 3 ml 10/03/25 09:51 Albuterol/Ipratropium (Duoneb) Rt Vonda 3 Ml Nebu INH 11/02/25 10:59 Q4HRRT PRN wheezing Apixaban 5 mg 10/02/25 11:00 10/06/25 08:33 Apixaban 2.5 Mg Tablet PO 11/01/25 10:59 5 mg BID KATINA Administration Atorvastatin Calcium 40 mg 10/03/25 21:00 10/05/25 21:14 Atorvastatin Calcium 20 Mg Tablet PO 11/02/25 20:59 40 mg HS KATINA Administration Bumetanide 2 mg 10/02/25 21:00 10/06/25 08:34 Bumetanide Inj 0.25 Mg/Ml Vial 4 Ml IVP 11/01/25 20:59 2 mg BID KATINA Administration Digoxin 0.25 mg 10/03/25 09:00 10/06/25 08:33 Digoxin 0.125 Mg Tablet PO 11/02/25 08:59 0.25 mg QDAY KATINA Administration Metoprolol Succinate 100 mg 10/03/25 09:00 10/06/25 08:34 Metoprolol Succinate Xl 25 Mg Tabcr PO 11/02/25 08:59 100 mg QAM KATINA Administration Metoprolol Succinate 50 mg 10/02/25 21:00 10/05/25 21:15 Metoprolol Succinate Xl 25 Mg Tabcr PO 11/01/25 20:59 50 mg HS KATINA Administration Sennosides 1 tab 10/02/25 10:42 Senna Tablet PO 11/01/25 10:41 QDAY PRN constipation Protocol Plan Rocael Doe 65M pmhx significant for HFrEF (20-25%) with severe systolic dysfunction, atrial fibrillation on Eliquis with hx of RVR, right thumb amputation, DDD of spine, right C6 denervation DDD, chronic back pain, and R C6 dennervation who presents with progressive anascara and SOB, admitted for acute on chronic HFrEF exacerbation, atrial fibrillation s/p successful OLI and cardioversion 10/05. #Acute on chronic HFrEF (20-25%), NYHA III #Bilateral pleural effusion #NSTEMI type II #Metabolic alkalosis, likely contraction 2/2 diuresis Presents with abdominal pain due to progressive anascarca, SOB with inc in O2 requirement, dyspnea on exertion, orthopnea, and PND. BNP 1k, trop 0.076 flat x2. Recently dx with HFrEF in 08/2025, unknown cause, denies [place], substance use or strong family hx. Follows Dr. Nathan outpatient, last saw 10/01 and was prescribed Bumex and Entresto, but has yet to start. Echo 09/21/25: LV size mildly enlarged with systolic function severely reduced, estimated EF 2024%, G2DD, RV size and systolic function normal, estimated RVSP 37 mmHg, moderate AV sclerosis without stenosis and mild regurgitation, mild to moderate MVR and TVR, LA severely enlarged, RA moderately enlarged, dilated IVC, trivial pericardial effusion CXR: moderate CHF, prominent L pleural effusion. C/A/P CTA: mild HF, PNA L base, b/l large pleural effusion, cirrhosis, mild ascities, distended GB, colonic diverticulosis. Abd US: normal GB Possible inadequate diuresis since previous discharge. s/p acetazolamide 10/02. s/p venofer 200 x1. Ddx: strong familial cardiac hx, chronic atrial fibrillation, [place] Plan: - Cardiology consulted, recs appreciated: hold Entresto to account for BP with aggressive diuresis, recommend close outpatient follow-up for initiation uptitration of GDMT, recommend PFT outpatient to rule out COPD - Continue IV Bumex 2 mg BID - CTM for contraction alkalosis and kidney fx - Strict I&Os, daily weights, 1.5L fluid restriction - Keep K>4 and Mg>2 at all times - Place condom catheter at night to prevent multiple bathroom trips #Atrial fibrillation s/p successful OLI and cardioversion 10/05 #Hx of atrial fibrillation RVR Recently diagnosed with atrial fibrillation during 08/2025 admission. EKG shows atrial fibrillation rate 93. s/p successful cardioversion 10/05. Digoxin level 0.8 on 10/03/25 Plan: - Cardiology consulted, recs appreciated- continue home Eliquis 5 mg BID, Continue home metoprolol XL 100 mg qAM and 50 mg qhs, and digoxin 0.25 mg QD - CTM telemetry #MASLD Seen on CTAP and abd US by irregular contour of liver. Likely 2/2 diet and obesity. Plan: - Recommend outpatient follow up Hospital management: Lines: PIV Diet: cardiac, low sodium, 1.5L fluid restriction Bowel: not indicated GI prophylaxis: senna prn DVT prophylaxis: Eliquis 5 mg BID Disposition: tele, IV diuresis CODE STATUS: FULL CODE This case was discussed with my attending physician, Dr. Jefferson, and senior resident, Dr. Goldberg. Ellie Cifuentes, DO Internal Medicine PGY-1 Attending Provider Attestation/Addendum I reviewed labs, imaging, EKG, home medications and prior available records. Face to face evaluation was performed by me. I have personally examined the patient and discussed assessment and plan with the IM team. I reviewed the resident note and agree with the plan with exceptions as below. HFrEF EF 20% CHF exacerbation Non-STEMI, likely type II in the setting of CHF exacerbation Atrial fibrillation status post cardioversion Continue IV diuresis Troponin peaked Continue Eliquis Continue metoprolol and digoxin Start Entresto when BP allows Follow-up with cardiology
--- NOTE | 2025-10-06 13:18 | ESPR_ITS ---
<Statement entered by Ryder Horner MD - 10/08/25 14:17> Patient was seen and examined by me personally. I have reviewed the below documentation by the team resident and agree with its findings. Mr. Doe is a 65-year-old male with past medical history of combined systolic and diastolic heart failure, HFrEF EF 20 to 25%, suspected LV thrombus, atrial fibrillation on Eliquis, NSVT, right thumb amputation, DDD of spine, right C6 denervation, significant secondhand smoke exposure and iron deficiency anemia admitted to [facility] for management of acute decompensated heart failure. Cardiology consulted as patient is known to practice and for management of heart failure. Patient being diuresed adequately with Bumex 2 mg IV twice daily, no contraction alkalosis or NAY noted. Did receive multiple doses of IV iron. Will continue with IV diuresis. Patient found to be in new onset atrial fibrillation during previous admission in August, repeat EKGs continued to show atrial fibrillation, rate well- controlled on digoxin and metoprolol, however decision was made to cardiovert the patient to improve symptoms, patient denied any swallowing problems, history of gastric ulcers and esophageal varices, OLI performed successfully 10/05/2025, LV thrombus was ruled out which was seen previously on echocardiogram in August, patient underwent synchronized cardioversion and continues to remain in sinus rhythm. Plan is to continue with IV diuresis, will consider escalating therapy if not euvolemic. Thank you for the consult and allowing to participate in the care of the patient. Cardiology will continue to follow. Case discussed with Attending Physician Dr. Marcus Horner MD Internal Medicine PGY-2 Disclaimer: This note was dictated by speech recognition. Minor errors in touring production manager may be present due to voice recognition software. Documentation for date of: 10/06/25 Subjective Subjective Interval history: Patient seen examined at bedside, continues to have lower extremity edema, on oxygen 2 L. Patient underwent OLI yesterday, LV thrombus was ruled out and received synchronized cardioversion 150 J x 1, rhythm reverted to sinus. Confirmed on EKG yesterday and today. Patient continues to remain fluid overloaded, recommend continuing IV diuresis. Labs reviewed today show magnesium 2.1, potassium 3.9 which was repleted adequately by primary team. Exam Vital Signs Temp Pulse Resp BP Pulse Ox O2 Del Method O2 Flow Rate 97.4 F 70 18 112/70 97 Nasal Cannula 3 10/06/25 08:00 10/06/25 12:00 10/06/25 09:15 10/06/25 08:34 10/06/25 09:15 10/06/25 08:00 10/06/25 09:15 Narrative Exam GENERAL: AOx3, no acute distress HEENT: mucous membranes moist, bilateral sclera anicteric, on 2L NC CARDIOVASCULAR: regular rate and rhythm, S1/S2 present, 2/6 murmur mitral region. PULMONARY: clear to auscultation bilaterally, no rales/rhonchi/wheezes ABDOMINAL: soft, no rebound/guarding, bowel sounds present, moderate distension of lower abdomen also TTP EXTREMITIES: 1+ edema BLE, R thumb amputated although nail remains SKIN: warm and dry, intact, no rashes NEURO: CN II-XII grossly intact, no focal deficits, alert, following commands Objective Labs 10/08/25 04:20 10/08/25 04:20 Labs: Laboratory Results - last 24 hr 10/06/25 04:35 WBC 6.4 RBC 4.73 Hgb 13.4 L Hct 41.8 MCV 88 MCH 28.3 MCHC 32.1 RDW Std Deviation 46.0 H Plt Count 245 D Neut % (Auto) 66 Lymph % (Auto) 18 [place] % (Auto) 11 Eos % (Auto) 3 Baso % (Auto) 1 Neut # (Auto) 4.3 Lymph # (Auto) 1.2 [place] # (Auto) 0.7 Eos # (Auto) 0.2 Baso # (Auto) 0.1 Immature Gran # (Auto) 0.03 H Absolute Nucleated RBC 0.00 Immature Gran % 1 H Nucleated RBC % 0 Sodium 143 Potassium 3.9 Chloride 100 Carbon Dioxide 31.9 H Anion Gap 11 BUN 18 Creatinine 0.9 Estim Creat Clear Calc 107.5 eGFR > 60 BUN/Creatinine Ratio 20 Glucose 89 Calculated Osmolality 285 Calcium 9.4 Corrected Calcium 9.4 Magnesium 2.1 Total Bilirubin 1.5 H AST 22 ALT 22 Alkaline Phosphatase 69 Total Protein 7.0 Albumin 4.1 D Globulin 2.9 Albumin/Globulin Ratio 1.4 Quality Measures Quality Measures none Assessment & Plan Assessment Current Active Medications: Generic Name Dose Route Start Last Admin Trade Name Freq PRN Reason Stop Dose Admin Acetaminophen 650 mg 10/02/25 10:42 10/06/25 06:22 Acetaminophen 325 Mg Tablet PO 11/01/25 10:41 650 mg Q6H PRN Administration Fever >100.4 or pain Albuterol/Ipratropium 3 ml 10/03/25 09:51 Albuterol/Ipratropium (Duoneb) Rt Vonda 3 Ml Nebu INH 11/02/25 10:59 Q4HRRT PRN wheezing Apixaban 5 mg 10/02/25 11:00 10/06/25 08:33 Apixaban 2.5 Mg Tablet PO 11/01/25 10:59 5 mg BID KATINA Administration Atorvastatin Calcium 40 mg 10/03/25 21:00 10/05/25 21:14 Atorvastatin Calcium 20 Mg Tablet PO 11/02/25 20:59 40 mg HS KATINA Administration Bumetanide 2 mg 10/02/25 21:00 10/06/25 08:34 Bumetanide Inj 0.25 Mg/Ml Vial 4 Ml IVP 11/01/25 20:59 2 mg BID KATINA Administration Digoxin 0.25 mg 10/03/25 09:00 10/06/25 08:33 Digoxin 0.125 Mg Tablet PO 11/02/25 08:59 0.25 mg QDAY KATINA Administration Metoprolol Succinate 100 mg 10/03/25 09:00 10/06/25 08:34 Metoprolol Succinate Xl 25 Mg Tabcr PO 11/02/25 08:59 100 mg QAM KATINA Administration Metoprolol Succinate 50 mg 10/02/25 21:00 10/05/25 21:15 Metoprolol Succinate Xl 25 Mg Tabcr PO 11/01/25 20:59 50 mg HS KATINA Administration Sennosides 1 tab 10/02/25 10:42 Senna Tablet PO 11/01/25 10:41 QDAY PRN constipation Protocol Plan Mr. Doe is a 65-year-old male with past medical history of combined systolic and diastolic heart failure, HFrEF EF 20 to 25%, suspected LV thrombus, atrial fibrillation on Eliquis, NSVT, right thumb amputation, DDD of spine, right C6 denervation, significant secondhand smoke exposure and iron deficiency anemia admitted to [facility] for management of acute decompensated heart failure. Cardiology consulted as patient is known to practice and for management of heart failure. #Atrial fibrillation, rate controlled status post synchronized cardioversion 10/05 #LV thrombus, ruled out status post OLI 10/05 #Nonsustained ventricular tachycardia, by history -Patient admitted in August for A-fib RVR, was started on metoprolol tartrate 100 mg every morning and 50 mg nightly. Rate is well-controlled. -Patient was started on digoxin as well during the prior admission, digoxin levels within normal limits, dig level this morning 0.8. -Patient had NSVT runs for about 20 seconds on telemetry on 09/11/2025. No further episodes were noted after patient was started on metoprolol and digoxin. -[id number] score 2 points, HAS BLED score 2 points -Decision made to cardiovert the patient to improve symptoms/quality of life as patient continues to be in atrial fibrillation Patient denies any kind of swallowing problems or any kind of esophageal interventions or previous surgeries. Patient denies any kind of gastric ulcers bleeding and any other hematemesis or hematochezia. Patient denies any issues with anesthesia previously. Patient explained all the risks, benefits and alternatives of OLI including the risk of perforation, bleeding, respiratory failure secondary to sedation, injury to teeth gums esophagus and stomach. Patient understood all risks and benefits and provided consent for the procedure. Patient underwent OLI 10/05/2025 as TTE 09/21/2025 did mention a possible LV thrombus. OLI 10/05/2025 negative for LV thrombus. Underwent synchronized cardioversion 150 J x 1 Repeat EKG 10/05 shows sinus rhythm. Repeated EKG 10/06 shows sinus rhythm as well and sinus rhythm noted on telemetry Recommendations: - Continue metoprolol 100 mg daily and 50 mg at bedtime - Continue digoxin at 0.25 mg - Continue Eliquis 5 mg twice daily - Continue telemetry monitoring - Will schedule patient for outpatient Holter monitoring to rule out paroxysmal atrial fibrillation. #Acute decompensated heart failure #Combined systolic and diastolic heart failure, EF 20 to 25% (08/2025), and NHYA class III #Bilateral Pleural effusion #Iron deficiency anemia Presented to hospital due to worsening SOB, PND, orthpnea with +3 pitting edema of bilateral Lower extremity On admission, Troponin 0.076, BNP: 1039. Chest x-ray showed moderate heart failure, prominent left pleural effusion. CTA chest abdomen pelvis negative for PE, shows mild heart failure, large bilateral pleural effusion, cirrhosis, mild ascites and distended gallbladder. Patient was seen in clinic earlier this week, was started on Entresto 0.5 p.o. twice daily and was switched from Lasix 40 daily to Bumex 2 mg daily however patient had not started taking Bumex prior to admission. Iron panel 09/08/2025?iron 15, TIBC 307, iron saturation 4, iron sat iron binding 292 ferritin 65 - received IV Iron Transthoracic echocardiogram 09/21/2025: -Left ventricle size is mildly enlarged and systolic function is severely reduced. Estimated ejection fraction is 20-25%. There is grade II diastolic dysfunction. Cannot rule out Small LV thrombus. Will need echo contrast study which is not available here. -Right ventricle chamber size is normal and systolic function is normal. Estimated RVSP is 37 mmHg. mildly elevated RVSP. -There is moderate aortic valve sclerosis with no stenosis and mild regurgitation. -There is mild to moderate mitral and tricuspid valve regurgitation. -The left atrium is severely enlarged. The right atrium is moderately enlarged. -Dilated IVC with estimated RA pressure 15 mmHg. -There is trivial pericardial effusion with no tamponade. OLI (10/05/2025) was negative for LV thrombus. Recommendations: -Recommend continuing Bumex 2 mg twice daily. Continue with aggressive diuresis. -Strict intake and output -Fluid restriction 1500 cc -Daily weight -Cardiac, low-sodium diet -Continue metoprolol succinate, start on Entresto as blood pressure tolerates once exacerbation has improved. -Patient will need close outpatient follow-up, highly recommend appointment within 1 week of discharge and will uptitrate GDMT outpatient as tolerates. -Due to history of secondhand smoke exposure will benefit from PFTs outpatient to rule out COPD. #NSTEMI type II, likely demand ischemia Patient denies any chest pain, presented with elevated troponin 0.076 -> 0.076. EKG on presentation shows no acute ST-T changes, atrial fibrillation rate controlled, Q waves noted in V3 V4 Patient's troponin elevation likely secondary to CHF exacerbation. Lipid panel 10/03/2025 shows?triglyceride 56, cholesterol 108, LDL 58, HDL 39, cholesterol/HDL ratio 2.8 TSH 10/02 0.52, free T41.47, hemoglobin A1c 6.0 Patient does have risk factor for CAD: Hypertension, dyslipidemia, morbid obesity, secondhand smoke exposure, family history of heart disease ASCVD risk score: 9.4%, moderate to high intensity statin recommended Recommendations: - Monitor for chest pain - Continue atorvastatin 40 mg at bedtime - Patient will need ischemia workup outpatient. Will schedule patient outpatient for stress test and possible cardiac catheterization. #Hypertension - Recommendations as above, continue metoprolol consider adding Entresto as blood pressure tolerates. #Imaging finding of liver cirrhosis, suspected MASLD #Hyperbilirubinemia Management as per primary team Assessment and plan discussed with my attending physician Dr. Nathan and senior resident Dr. Horner PGY 2 Dr. Ames (PGY-1) - Internal medicine resident Attending Provider Attestation/Addendum I have personally seen and examined the patient separately on the above date of service and discussed the plan of care with the resident. I reviewed the resident Dr. Robert Ames consultation progress note and agree with the resident findings and plan in the note above and have also edited the documentation to reflect my findings and plan. Marcus Nathan M.D. Interventional Cardiology
--- NOTE | 2025-10-06 15:33 | PC.SS ---
Follow up note: SS met with pt who states he has O2 at home from [facility], [place]. Pt and son aware to bring small O2 tank at d/c. Pt will continue IV diuresis for couple of days.
[2025-10-06] MEDS: METOPROLOL SUCCINATE XL 25 MG TABCR 50 MG PO (21:13)
[2025-10-06] MEDS: ATORVASTATIN CALCIUM 20 MG TABLET 40 MG PO (21:13)
[2025-10-07] VITALS (11 sets, daily range): BP systolic 113–131; BP diastolic 67–87; PULSE 56–78; RESP 16–19; TEMP 36.1–36.9; O2SAT 94–98; BMI 43.8
[2025-10-07 06:25] LABS: Basophils # (Auto) 0.1 Thou/mm3 (0.0-0.2); Basophils % (Auto) 2 % (0-2.5); Eosinophils # (Auto) 0.2 Thou/mm3 (0.0-0.5); Eosinophils % (Auto) 3 % (0-10); Hematocrit 39.4 % (41.0-53.0); Hemoglobin 12.8 g/dL (13.5-16.0); Immature Granulocytes Auto 0.03 Thou/mm3 (0.00-0.00); Lymphocytes # (Auto) 1.4 Thou/mm3 (1.0-4.8); Lymphocytes % (Auto) 23 % (10-50); Mean Corpuscular HGB Conc 32.5 g/dl (31.0-37.0); Mean Corpuscular Hemoglobin 28.6 pg (25.0-35.0); Mean Corpuscular Volume 88 fL (80-100); Monocytes # (Auto) 0.7 Thou/mm3 (0.0-0.8); Monocytes % (Auto) 12 % (0-12); Neutrophils # (Auto) 3.5 Thou/mm3 (1.8-7.7); Neutrophils % (Auto) 60 % (37-80); Nucleated Red Blood Cell # 0.00 Thou/mm3 (0.00-0.00); Nucleated Red Blood Cell % 0 /100 WBC (0); Platelet Count 215 Thou/mm3 (140-440); RDW Standard Deviation 45.9 fL (35.1-43.9); Red Blood Count 4.48 Miln/mm3 (4.50-5.90); White Blood Count 5.9 Thou/mm3 (3.8-10.6)
[2025-10-07 06:52] LABS: Alanine Aminotransferase 19 U/L (10-49); Albumin, Serum 3.9 gm/dL (3.4-4.8); Albumin/Globulin Ratio 1.4 (1.2-2.2); Alkaline Phosphatase 66 U/L (46-116); Anion Gap 8 (7-16); Aspartate Amino Transferase 18 U/L (0-34); BUN/Creatinine Ratio 18 Ratio (12-20); Bilirubin,Total 1.1 mg/dL (0.3-1.2); Blood Urea Nitrogen 18 mg/dL (9-23); Calcium 9.2 mg/dL (8.3-10.6); Calcium (Corrected) 9.3 mg/dL (8.5-10.1); Carbon Dioxide 34.3 mMol/L (20.0-31.0); Chloride 101 mMol/L (98-107); Creatinine (Component) 1.0 mg/dL (0.6-1.3); Estimated Creatinine Clearance 96.7 mL/min (>60); Globulin 2.7 gm/dL (2.3-3.5); Glucose 91 mg/dL (74-106); Magnesium 1.9 mg/dL (1.6-2.6); Osmolality,Calculated 286 (275-295); Potassium 3.8 mMol/L (3.4-5.1); Sodium 143 mMol/L (136-145); Total Protein 6.6 gm/dL (5.7-8.2); eGFR > 60 See Note
--- NOTE | 2025-10-07 08:31 | ESPR_ITS ---
<Statement entered by Ryder Horner MD - 10/08/25 14:30> Patient was seen and examined by me personally. I have reviewed the below documentation by the team resident and agree with its findings. Mr. Doe is a 65-year-old male with past medical history of combined systolic and diastolic heart failure, HFrEF EF 20 to 25%, suspected LV thrombus, atrial fibrillation on Eliquis, NSVT, right thumb amputation, DDD of spine, right C6 denervation, significant secondhand smoke exposure and iron deficiency anemia admitted to [facility] for management of acute decompensated heart failure. Cardiology consulted as patient is known to practice and for management of heart failure.Patient has received aggressive IV diuresis for the hospitalization, patient also underwent OLI 10/05/2025 to rule out LV thrombus and received synchronized cardioversion 150 J x 1 after which patient reverted to sinus rhythm confirmed with EKG. Sinus rhythm noted on telemetry today. Patient is net -11 L for the hospitalization, will continue with IV diuresis as patient continues to have edema, renal function normal, no NAY noted, no contraction alkalosis noted. Continue Bumex 2 mg IV twice daily, consider additional dose of acetazolamide if not adequate urine output. Correct and replace electrolytes, keep potassium greater than 4 and magnesium greater than 2 at all times. Thank you for the consult and allowing to participate in the care of the patient. Cardiology will continue to follow. Case discussed with Attending Physician Dr. Marcus Horner MD Internal Medicine PGY-2 Disclaimer: This note was dictated by speech recognition. Minor errors in quantitative developer may be present due to voice recognition software. Documentation for date of: 10/07/25 Subjective Subjective Interval history: No Overnight events. Labs reviewed and patient examined at the bedside. Patient s/p OLI and cardioversion on 10/05, after which his symptom had significant improvement. Patient no longer has chest pain, SOB, palpation on 1 L NC. On examination, there is 1+ edema bilateral LE, however, overall significant improvement in leg swelling. Will continue IV bumex 2mg bid, Digoxin 0.25 mg qd, Metoprolol Succinate 100mg qam and 50mg po HS, Eliquis 5mg po bid, Atorvastatin 40mg po HS. Started on Entresto 24-26mg po bid. UOP today was 2.85L. Exam Vital Signs Temp Pulse Resp BP Pulse Ox O2 Del Method O2 Flow Rate 97.5 F 68 17 122/68 97 Room Air 2 10/07/25 04:00 10/07/25 04:00 10/07/25 04:00 10/07/25 04:00 10/07/25 04:00 10/07/25 04:00 10/06/25 12:00 Narrative Exam GENERAL: AOx3, no acute distress HEENT: mucous membranes moist, bilateral sclera anicteric, on 2L NC CARDIOVASCULAR: regular rate and rhythm, S1/S2 present, 2/6 murmur mitral region. PULMONARY: clear to auscultation bilaterally, no rales/rhonchi/wheezes ABDOMINAL: soft, no rebound/guarding, bowel sounds present, moderate distension of lower abdomen also TTP EXTREMITIES: 1+ edema BLE, R thumb amputated although nail remains SKIN: warm and dry, intact, no rashes NEURO: CN II-XII grossly intact, no focal deficits, alert, following commands Objective Labs 10/08/25 04:20 10/08/25 04:20 Labs: Laboratory Results - last 24 hr 10/07/25 05:58 WBC 5.9 RBC 4.48 L Hgb 12.8 L Hct 39.4 L MCV 88 MCH 28.6 MCHC 32.5 RDW Std Deviation 45.9 H Plt Count 215 D Neut % (Auto) 60 Lymph % (Auto) 23 [place] % (Auto) 12 Eos % (Auto) 3 Baso % (Auto) 2 Neut # (Auto) 3.5 Lymph # (Auto) 1.4 [place] # (Auto) 0.7 Eos # (Auto) 0.2 Baso # (Auto) 0.1 Immature Gran # (Auto) 0.03 H Absolute Nucleated RBC 0.00 Immature Gran % 1 H Nucleated RBC % 0 Sodium 143 Potassium 3.8 Chloride 101 Carbon Dioxide 34.3 H Anion Gap 8 BUN 18 Creatinine 1.0 Estim Creat Clear Calc 96.7 eGFR > 60 BUN/Creatinine Ratio 18 Glucose 91 Calculated Osmolality 286 Calcium 9.2 Corrected Calcium 9.3 Magnesium 1.9 Total Bilirubin 1.1 AST 18 ALT 19 Alkaline Phosphatase 66 Total Protein 6.6 Albumin 3.9 Globulin 2.7 Albumin/Globulin Ratio 1.4 Quality Measures Quality Measures none Assessment & Plan Assessment Current Active Medications: Generic Name Dose Route Start Last Admin Trade Name Freq PRN Reason Stop Dose Admin Acetaminophen 650 mg 10/02/25 10:42 10/06/25 06:22 Acetaminophen 325 Mg Tablet PO 11/01/25 10:41 650 mg Q6H PRN Administration Fever >100.4 or pain Albuterol/Ipratropium 3 ml 10/03/25 09:51 Albuterol/Ipratropium (Duoneb) Rt Vonda 3 Ml Nebu INH 11/02/25 10:59 Q4HRRT PRN wheezing Apixaban 5 mg 10/02/25 11:00 10/06/25 21:13 Apixaban 2.5 Mg Tablet PO 11/01/25 10:59 5 mg BID KATINA Administration Atorvastatin Calcium 40 mg 10/03/25 21:00 10/06/25 21:13 Atorvastatin Calcium 20 Mg Tablet PO 11/02/25 20:59 40 mg HS KATINA Administration Bumetanide 2 mg 10/02/25 21:00 10/06/25 21:15 Bumetanide Inj 0.25 Mg/Ml Vial 4 Ml IVP 11/01/25 20:59 2 mg BID KATINA Administration Digoxin 0.25 mg 10/03/25 09:00 10/06/25 08:33 Digoxin 0.125 Mg Tablet PO 11/02/25 08:59 0.25 mg QDAY KATINA Administration Magnesium Sulfate 4 gm in 50 mls @ 12.5 mls/hr 10/07/25 08:15 Magnesium Sulfate Ivpb IV 10/07/25 12:14 X1 ONE Metoprolol Succinate 100 mg 10/03/25 09:00 10/06/25 08:34 Metoprolol Succinate Xl 25 Mg Tabcr PO 11/02/25 08:59 100 mg QAM KATINA Administration Metoprolol Succinate 50 mg 10/02/25 21:00 10/06/25 21:13 Metoprolol Succinate Xl 25 Mg Tabcr PO 11/01/25 20:59 50 mg HS KATINA Administration Potassium Chloride 40 meq 10/07/25 12:00 Potassium Chloride 20 Meq Tabcr PO 10/07/25 12:01 X1 ONE Sennosides 1 tab 10/02/25 10:42 Senna Tablet PO 11/01/25 10:41 QDAY PRN constipation Protocol Plan Mr. Doe is a 65-year-old male with past medical history of combined systolic and diastolic heart failure, HFrEF EF 20 to 25%, suspected LV thrombus, atrial fibrillation on Eliquis, NSVT, right thumb amputation, DDD of spine, right C6 denervation, significant secondhand smoke exposure and iron deficiency anemia admitted to [facility] for management of acute decompensated heart failure. Cardiology consulted as patient is known to practice and for management of heart failure. #Acute decompensated heart failure, improving #Combined systolic and diastolic heart failure, EF 20 to 25% (08/2025), and NHYA class III #Bilateral Pleural effusion #Iron deficiency anemia Presented to hospital due to worsening SOB, PND, orthpnea with +3 pitting edema of bilateral Lower extremity On admission, Troponin 0.076, BNP: 1039. Chest x-ray showed moderate heart failure, prominent left pleural effusion. CTA chest abdomen pelvis negative for PE, shows mild heart failure, large bilateral pleural effusion, cirrhosis, mild ascites and distended gallbladder. Patient was seen in clinic earlier this week, was started on Entresto 0.5 p.o. twice daily and was switched from Lasix 40 daily to Bumex 2 mg daily however patient had not started taking Bumex prior to admission. Iron panel 09/08/2025?iron 15, TIBC 307, iron saturation 4, iron sat iron binding 292 ferritin 65 - received IV Iron Transthoracic echocardiogram 09/21/2025: -Left ventricle size is mildly enlarged and systolic function is severely reduced. Estimated ejection fraction is 20-25%. There is grade II diastolic dysfunction. Cannot rule out Small LV thrombus. Will need echo contrast study which is not available here. -Right ventricle chamber size is normal and systolic function is normal. Estimated RVSP is 37 mmHg. mildly elevated RVSP. -There is moderate aortic valve sclerosis with no stenosis and mild regurgitation. -There is mild to moderate mitral and tricuspid valve regurgitation. -The left atrium is severely enlarged. The right atrium is moderately enlarged. -Dilated IVC with estimated RA pressure 15 mmHg. -There is trivial pericardial effusion with no tamponade. OLI (10/05/2025) was negative for LV thrombus. Recommendations: -Recommend continuing Bumex 2 mg twice daily. Continue with aggressive diuresis, consider acetazolamide x 1. -Strict intake and output -Fluid restriction 1500 cc -Daily weight -Cardiac, low-sodium diet -Continue metoprolol succinate, sacubitril/valsartan -Patient will need close outpatient follow-up, highly recommend appointment within 1 week of discharge and will uptitrate GDMT outpatient as tolerates. -Due to history of secondhand smoke exposure will benefit from PFTs outpatient to rule out COPD. #Atrial fibrillation, rate controlled status post synchronized cardioversion 10/05 #LV thrombus, ruled out status post OLI 10/05 #Nonsustained ventricular tachycardia, by history -Patient admitted in August for A-fib RVR, was started on metoprolol tartrate 100 mg every morning and 50 mg nightly. Rate is well-controlled. -Patient was started on digoxin as well during the prior admission, digoxin levels within normal limits, dig level this morning 0.8. -Patient had NSVT runs for about 20 seconds on telemetry on 09/11/2025. No further episodes were noted after patient was started on metoprolol and digoxin. -[id number] score 2 points, HAS BLED score 2 points -Decision made to cardiovert the patient to improve symptoms/quality of life as patient continues to be in atrial fibrillation Patient denies any kind of swallowing problems or any kind of esophageal interventions or previous surgeries. Patient denies any kind of gastric ulcers bleeding and any other hematemesis or hematochezia. Patient denies any issues with anesthesia previously. Patient explained all the risks, benefits and alternatives of OLI including the risk of perforation, bleeding, respiratory failure secondary to sedation, injury to teeth gums esophagus and stomach. Patient understood all risks and benefits and provided consent for the procedure. Patient underwent OLI 10/05/2025 as TTE 09/21/2025 did mention a possible LV thrombus. OLI 10/05/2025 negative for LV thrombus. Underwent synchronized cardioversion 150 J x 1 Repeat EKG 10/05 shows sinus rhythm. Repeated EKG 10/06 shows sinus rhythm as well and sinus rhythm noted on telemetry Recommendations: - Continue metoprolol 100 mg daily and 50 mg at bedtime - Continue digoxin at 0.25 mg - Continue Eliquis 5 mg twice daily - Continue telemetry monitoring - Will schedule patient for outpatient Holter monitoring to rule out paroxysmal atrial fibrillation. #NSTEMI type II, likely demand ischemia Patient denies any chest pain, presented with elevated troponin 0.076 -> 0.076. EKG on presentation shows no acute ST-T changes, atrial fibrillation rate controlled, Q waves noted in V3 V4 Patient's troponin elevation likely secondary to CHF exacerbation. Lipid panel 10/03/2025 shows?triglyceride 56, cholesterol 108, LDL 58, HDL 39, cholesterol/HDL ratio 2.8 TSH 10/02 0.52, free T41.47, hemoglobin A1c 6.0 Patient does have risk factor for CAD: Hypertension, dyslipidemia, morbid obesity, secondhand smoke exposure, family history of heart disease ASCVD risk score: 9.4%, moderate to high intensity statin recommended Recommendations: - Monitor for chest pain - Continue atorvastatin 40 mg at bedtime - Patient will need ischemia workup outpatient. Will schedule patient outpatient for stress test and possible cardiac catheterization. #Hypertension - Recommendations as above, continue metoprolol consider adding Entresto as blood pressure tolerates. #Imaging finding of liver cirrhosis, suspected MASLD #Hyperbilirubinemia Management as per primary team Assessment and plan discussed with my attending physician Dr. Nathan and senior resident Dr. Horner PGY 2 Dr. Ames (PGY-1) - Internal medicine resident Attending Provider Attestation/Addendum I have personally seen and examined the patient separately on the above date of service and discussed the plan of care with the resident. I reviewed the resident Dr. Robert Ames / Ryder Horner consultation progress note and agree with the resident findings and plan in the note above and have also edited the documentation to reflect my findings and plan. Marcus Nathan M.D. Interventional Cardiology
[2025-10-07] MEDS: APIXABAN 2.5 MG TABLET 5 MG PO ×2 (08:45→21:24)
[2025-10-07] MEDS: DIGOXIN 0.125 MG TABLET 0.25 MG PO (08:45)
[2025-10-07] MEDS: METOPROLOL SUCCINATE XL 25 MG TABCR 100 MG PO (08:45)
[2025-10-07] MEDS: BUMETANIDE INJ 0.25 MG/ML VIAL 4 ML 2 MG IVP ×2 (08:46→21:38)
[2025-10-07] MEDS: Magnesium Sulfate 4 GM Ivpb 4 GM/50 ML BAG IV (08:46)
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
[2025-10-07] MEDS: METOPROLOL SUCCINATE XL 25 MG TABCR 50 MG PO (21:23)
[2025-10-07] MEDS: ATORVASTATIN CALCIUM 20 MG TABLET 40 MG PO (21:24)
[2025-10-08] VITALS (11 sets, daily range): BP systolic 109–131; BP diastolic 61–84; PULSE 52–88; RESP 16–18; TEMP 36.1–36.4; O2SAT 95–100
[2025-10-08 05:13] LABS: Basophils # (Auto) 0.1 Thou/mm3 (0.0-0.2); Basophils % (Auto) 1 % (0-2.5); Eosinophils # (Auto) 0.1 Thou/mm3 (0.0-0.5); Eosinophils % (Auto) 2 % (0-10); Hematocrit 44.0 % (41.0-53.0); Hemoglobin 13.8 g/dL (13.5-16.0); Immature Granulocytes Auto 0.03 Thou/mm3 (0.00-0.00); Lymphocytes # (Auto) 1.4 Thou/mm3 (1.0-4.8); Lymphocytes % (Auto) 23 % (10-50); Mean Corpuscular HGB Conc 31.4 g/dl (31.0-37.0); Mean Corpuscular Hemoglobin 27.7 pg (25.0-35.0); Mean Corpuscular Volume 88 fL (80-100); Monocytes # (Auto) 0.8 Thou/mm3 (0.0-0.8); Monocytes % (Auto) 13 % (0-12); Neutrophils # (Auto) 3.8 Thou/mm3 (1.8-7.7); Neutrophils % (Auto) 61 % (37-80); Nucleated Red Blood Cell # 0.00 Thou/mm3 (0.00-0.00); Nucleated Red Blood Cell % 0 /100 WBC (0); Platelet Count 198 Thou/mm3 (140-440); RDW Standard Deviation 45.1 fL (35.1-43.9); Red Blood Count 4.98 Miln/mm3 (4.50-5.90); White Blood Count 6.2 Thou/mm3 (3.8-10.6)
[2025-10-08 05:37] LABS: Alanine Aminotransferase 23 U/L (10-49); Albumin, Serum 4.0 gm/dL (3.4-4.8); Albumin/Globulin Ratio 1.4 (1.2-2.2); Alkaline Phosphatase 72 U/L (46-116); Anion Gap 8 (7-16); Aspartate Amino Transferase 27 U/L (0-34); BUN/Creatinine Ratio 16 Ratio (12-20); Bilirubin,Total 1.0 mg/dL (0.3-1.2); Blood Urea Nitrogen 14 mg/dL (9-23); Calcium 9.2 mg/dL (8.3-10.6); Calcium (Corrected) 9.2 mg/dL (8.5-10.1); Carbon Dioxide 30.8 mMol/L (20.0-31.0); Chloride 103 mMol/L (98-107); Creatinine (Component) 0.9 mg/dL (0.6-1.3); Estimated Creatinine Clearance 107.5 mL/min (>60); Globulin 2.9 gm/dL (2.3-3.5); Glucose 75 mg/dL (74-106); Magnesium 2.4 mg/dL (1.6-2.6); Osmolality,Calculated 282 (275-295); Potassium 4.3 mMol/L (3.4-5.1); Sodium 142 mMol/L (136-145); Total Protein 6.9 gm/dL (5.7-8.2); eGFR > 60 See Note
[2025-10-08] MEDS: BUMETANIDE INJ 0.25 MG/ML VIAL 4 ML 2 MG IVP (08:57)
[2025-10-08] MEDS: METOPROLOL SUCCINATE XL 25 MG TABCR 100 MG PO (08:58)
[2025-10-08] MEDS: APIXABAN 2.5 MG TABLET 5 MG PO (08:59)
[2025-10-08] MEDS: DIGOXIN 0.125 MG TABLET 0.25 MG PO (08:59)
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
--- NOTE | 2025-10-08 15:13 | PD.IMPROG ---
Documentation for date of: 10/08/25 Subjective Subjective Interval history: No Overnight events. Labs reviewed and patient examined at the bedside. Patient s/p OLI and cardioversion on 10/05, after which his symptom had significant improvement. Patient no longer has chest pain, SOB, palpation on 1 L NC. On examination, there is 1+ edema bilateral LE, however, overall significant improvement in leg swelling. Will continue IV bumex 2mg bid, Digoxin 0.25 mg qd, Metoprolol Succinate 100mg qam and 50mg po HS, Eliquis 5mg po bid, Atorvastatin 40mg po HS. Started on Entresto 24-26mg po bid. UOP today was 2.85L. 10/08/25 Patient seen and examined at bedside. No new cardiac complains. Labs and vitals look stable. Discharge patient on bumex 2 mg once daily, entresto, metoprolol, digoxin, on present doses. recommended to follow up with me in 1 week with BMP and magnesium labs. Exam Vital Signs Temp Pulse Resp BP Pulse Ox O2 Del Method O2 Flow Rate 97.0 F 73 16 109/61 96 Room Air 2 10/08/25 12:00 10/08/25 12:00 10/08/25 12:00 10/08/25 12:00 10/08/25 12:00 10/08/25 12:00 10/07/25 16:00 Narrative Exam GENERAL: AOx3, no acute distress HEENT: mucous membranes moist, bilateral sclera anicteric, on 2L NC CARDIOVASCULAR: regular rate and rhythm, S1/S2 present, 2/6 murmur mitral region. PULMONARY: clear to auscultation bilaterally, no rales/rhonchi/wheezes ABDOMINAL: soft, no rebound/guarding, bowel sounds present, moderate distension of lower abdomen also TTP EXTREMITIES: 1+ edema BLE, R thumb amputated although nail remains SKIN: warm and dry, intact, no rashes NEURO: CN II-XII grossly intact, no focal deficits, alert, following commands Objective Labs 10/08/25 04:20 10/08/25 04:20 Labs: Laboratory Results - last 24 hr 10/08/25 04:20 WBC 6.2 RBC 4.98 Hgb 13.8 Hct 44.0 MCV 88 MCH 27.7 MCHC 31.4 RDW Std Deviation 45.1 H Plt Count 198 Neut % (Auto) 61 Lymph % (Auto) 23 [place] % (Auto) 13 H Eos % (Auto) 2 Baso % (Auto) 1 Neut # (Auto) 3.8 Lymph # (Auto) 1.4 [place] # (Auto) 0.8 Eos # (Auto) 0.1 Baso # (Auto) 0.1 Immature Gran # (Auto) 0.03 H Absolute Nucleated RBC 0.00 Immature Gran % 1 H Nucleated RBC % 0 Sodium 142 Potassium 4.3 D Chloride 103 Carbon Dioxide 30.8 Anion Gap 8 BUN 14 Creatinine 0.9 Estim Creat Clear Calc 107.5 eGFR > 60 BUN/Creatinine Ratio 16 Glucose 75 Calculated Osmolality 282 Calcium 9.2 Corrected Calcium 9.2 Magnesium 2.4 Total Bilirubin 1.0 AST 27 ALT 23 Alkaline Phosphatase 72 Total Protein 6.9 Albumin 4.0 Globulin 2.9 Albumin/Globulin Ratio 1.4 Assessment & Plan A&P Narrative Mr. Doe is a 65-year-old male with past medical history of combined systolic and diastolic heart failure, HFrEF EF 20 to 25%, suspected LV thrombus, atrial fibrillation on Eliquis, NSVT, right thumb amputation, DDD of spine, right C6 denervation, significant secondhand smoke exposure and iron deficiency anemia admitted to [facility] for management of acute decompensated heart failure. Cardiology consulted as patient is known to practice and for management of heart failure. #Acute decompensated heart failure, improving #Combined systolic and diastolic heart failure, EF 20 to 25% (08/2025), and NHYA class III #Bilateral Pleural effusion #Iron deficiency anemia Presented to hospital due to worsening SOB, PND, orthpnea with +3 pitting edema of bilateral Lower extremity On admission, Troponin 0.076, BNP: 1039. Chest x-ray showed moderate heart failure, prominent left pleural effusion. CTA chest abdomen pelvis negative for PE, shows mild heart failure, large bilateral pleural effusion, cirrhosis, mild ascites and distended gallbladder. Patient was seen in clinic earlier this week, was started on Entresto 0.5 p.o. twice daily and was switched from Lasix 40 daily to Bumex 2 mg daily however patient had not started taking Bumex prior to admission. Iron panel 09/08/2025?iron 15, TIBC 307, iron saturation 4, iron sat iron binding 292 ferritin 65 - received IV Iron Transthoracic echocardiogram 09/21/2025: -Left ventricle size is mildly enlarged and systolic function is severely reduced. Estimated ejection fraction is 20-25%. There is grade II diastolic dysfunction. Cannot rule out Small LV thrombus. Will need echo contrast study which is not available here. -Right ventricle chamber size is normal and systolic function is normal. Estimated RVSP is 37 mmHg. mildly elevated RVSP. -There is moderate aortic valve sclerosis with no stenosis and mild regurgitation. -There is mild to moderate mitral and tricuspid valve regurgitation. -The left atrium is severely enlarged. The right atrium is moderately enlarged. -Dilated IVC with estimated RA pressure 15 mmHg. -There is trivial pericardial effusion with no tamponade. OLI (10/05/2025) was negative for LV thrombus. Recommendations: -Recommend continuing Bumex 2 mg twice daily. Continue with aggressive diuresis, consider acetazolamide x 1. -Strict intake and output -Fluid restriction 1500 cc -Daily weight -Cardiac, low-sodium diet -Continue metoprolol succinate, sacubitril/valsartan -Patient will need close outpatient follow-up, highly recommend appointment within 1 week of discharge and will uptitrate GDMT outpatient as tolerates. -Due to history of secondhand smoke exposure will benefit from PFTs outpatient to rule out COPD. 10/08/25 Discharge patient on bumex 2 mg once daily, entresto, metoprolol, digoxin, on present doses. recommended to follow up with me in 1 week with BMP and magnesium labs. #Atrial fibrillation, rate controlled status post synchronized cardioversion 10/05 #LV thrombus, ruled out status post OLI 10/05 #Nonsustained ventricular tachycardia, by history -Patient admitted in August for A-fib RVR, was started on metoprolol tartrate 100 mg every morning and 50 mg nightly. Rate is well-controlled. -Patient was started on digoxin as well during the prior admission, digoxin levels within normal limits, dig level this morning 0.8. -Patient had NSVT runs for about 20 seconds on telemetry on 09/11/2025. No further episodes were noted after patient was started on metoprolol and digoxin. -[id number] score 2 points, HAS BLED score 2 points -Decision made to cardiovert the patient to improve symptoms/quality of life as patient continues to be in atrial fibrillation Patient denies any kind of swallowing problems or any kind of esophageal interventions or previous surgeries. Patient denies any kind of gastric ulcers bleeding and any other hematemesis or hematochezia. Patient denies any issues with anesthesia previously. Patient explained all the risks, benefits and alternatives of OLI including the risk of perforation, bleeding, respiratory failure secondary to sedation, injury to teeth gums esophagus and stomach. Patient understood all risks and benefits and provided consent for the procedure. Patient underwent OLI 10/05/2025 as TTE 09/21/2025 did mention a possible LV thrombus. OLI 10/05/2025 negative for LV thrombus. Underwent synchronized cardioversion 150 J x 1 Repeat EKG 10/05 shows sinus rhythm. Repeated EKG 10/06 shows sinus rhythm as well and sinus rhythm noted on telemetry Recommendations: - Continue metoprolol 100 mg daily and 50 mg at bedtime - Continue digoxin at 0.25 mg - Continue Eliquis 5 mg twice daily - Continue telemetry monitoring - Will schedule patient for outpatient Holter monitoring to rule out paroxysmal atrial fibrillation. #NSTEMI type II, likely demand ischemia Patient denies any chest pain, presented with elevated troponin 0.076 -> 0.076. EKG on presentation shows no acute ST-T changes, atrial fibrillation rate controlled, Q waves noted in V3 V4 Patient's troponin elevation likely secondary to CHF exacerbation. Lipid panel 10/03/2025 shows?triglyceride 56, cholesterol 108, LDL 58, HDL 39, cholesterol/HDL ratio 2.8 TSH 10/02 0.52, free T41.47, hemoglobin A1c 6.0 Patient does have risk factor for CAD: Hypertension, dyslipidemia, morbid obesity, secondhand smoke exposure, family history of heart disease ASCVD risk score: 9.4%, moderate to high intensity statin recommended Recommendations: - Monitor for chest pain - Continue atorvastatin 40 mg at bedtime - Patient will need ischemia workup outpatient. Will schedule patient outpatient for stress test and possible cardiac catheterization. #Hypertension - Recommendations as above, continue metoprolol consider adding Entresto as blood pressure tolerates. #Imaging finding of liver cirrhosis, suspected MASLD #Hyperbilirubinemia Management as per primary team Management of rest of the medical conditions as per primary team and other consultants. Thank you for the consult and allowing me to participate in the care of the patient. Cardiology will continue to follow. Marcus Nathan M.D. Interventional Cardiology Time Spent With Patient Time: Total time spent is greater than 50% in coordination of care (as documented) at patient's floor/unit and/or counseling patient:
== END 2025-10-08 17:18 | disposition home or self-care (01) | DRG 280 ==
LOC: SERX 06:37 → SERHOLD 11:00 → S3NX 10-04 06:09
PROVIDERS: Internal Medicine Cardiovascular Disease; Admitting Provider Student in an Organized Health Care Education/Training Program; Emergency Provider Emergency Medicine; Visit Provider Internal Medicine
PROC: (CPT 93312; principal; 2025-10-05 14:45)
DX: I11.0 Hypertensive heart disease with heart failure (principal); I50.43 Acute on chronic combined systolic (congestive) and diastolic (congestive) heart failure; I21.A1 Myocardial infarction type 2; J18.9 Pneumonia, unspecified organism; J96.01 Acute respiratory failure with hypoxia; E87.3 Alkalosis; R18.8 Other ascites; I48.20 Chronic atrial fibrillation, unspecified; G89.29 Other chronic pain; M54.9 Dorsalgia, unspecified; I48.91 Unspecified atrial fibrillation; Z77.22 Contact with and (suspected) exposure to environmental tobacco smoke (acute) (chronic); Z91.119 Patient's noncompliance with dietary regimen due to unspecified reason; I08.1 Rheumatic disorders of both mitral and tricuspid valves; K82.8 Other specified diseases of gallbladder; D50.9 Iron deficiency anemia, unspecified; K74.60 Unspecified cirrhosis of liver; Z79.01 Long term (current) use of anticoagulants; Z79.899 Other long term (current) drug therapy; Z98.1 Arthrodesis status; T50.2X5A Adverse effect of carbonic-anhydrase inhibitors, benzothiadiazides and other diuretics, initial encounter
CPT/HCPCS: 36415; 36600; 71045; 71275; 74174; 76705; 80053; 80061; 80162; 81001; 82248; 82803; 83036; 83605; 83690; 83735; 83880; 84100; 84145; 84439; 84443; 84481; 84484; 85025; 85379; 85610; 85652; 85730; 86140; 87040; 87081; 87502; 87811; 93005; 93225; 93312; 94762; 96365; 96366; 96375; 96376; 99152; 99284; A4649; J1120; J1756; J2250; J2270; J3010; J3475; J3490; Q9967; A9270